=== PATIENT | female | born 1945 | race Caucasian/White ===

== ENCOUNTER 2017-09-13 14:03 | Emergency (ER) | payer MEDICARE, OTHER, SELFPAY | END 2017-09-13 17:28 | disposition home or self-care (01) | PROVIDERS: Emergency Provider Emergency Medicine; Family Provider Family Medicine; PCP Family Medicine; Visit Provider Emergency Medicine | DX: G89.18 Other acute postprocedural pain (principal) | CPT/HCPCS: 36415; 71010; 71045; 73502; 80053; 81003; 83605; 83690; 84145; 85025; 85610; 85730; 87040; 93971; 96361; 96374; 96375; 99058; 99285; J1885; J2270; J2405 ==

== ENCOUNTER 2018-02-07 16:23 | Emergency (ER) | payer MEDICARE, OTHER, SELFPAY ==
[2018-02-07 16:35] VITALS: BP 148/84; PULSE 88; RESP 28; TEMP 36.2; O2SAT 99
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
--- NOTE | 2018-02-07 16:51 | DI.RAD.S_ITS ---
PROCEDURE: XR FOREARM RT 2V INDICATIONS: Pain in right shoulder arm and forearm TECHNIQUE: 2 views of the forearm were acquired. COMPARISON: None. FINDINGS: Bones: No fractures or dislocations. No suspicious bony lesions. Moderate osteoarthritic changes while wrist joint are seen. Soft tissues: No suspicious soft tissue calcifications or masses. IMPRESSION: No gross acute forearm fracture or dislocation. Moderate wrist joint osteoarthritis. Dictated by: Jamie De Leon M.D. on 02/07/2018 at 17:32 Approved by: Jamie De Leon M.D. on 02/07/2018 at 17:32
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
[2018-02-07] MEDS: ACETAMINOPHEN 325 MG TABLET 650 MG PO (17:17)
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
[2018-02-07 18:31] VITALS: BP 145/81; PULSE 73; TEMP 36; O2SAT 97
[2018-02-07 18:40] VITALS: RESP 25
== END 2018-02-07 18:48 | disposition home or self-care (01) ==
PROVIDERS: Emergency Provider Nurse Practitioner Family; Family Provider Family Medicine; PCP Family Medicine
DX: S40.021A Contusion of right upper arm, initial encounter (principal); S80.11XA Contusion of right lower leg, initial encounter; V18.2XXA Unspecified pedal cyclist injured in noncollision transport accident in nontraffic accident, initial encounter
CPT/HCPCS: 70486; 73030; 73090; 73552; 73590; 99283; 99284

== ENCOUNTER → 2018-03-01 07:27 | Outpatient (CLI) | payer MEDICARE, OTHER, SELFPAY ==
[2018-03-01 09:15] LABS: Add Manual Diff / Slide Review NO; Basophils Percent Auto 0.7 % (0-2); Eosinophils Percent Auto 3.8 % (2-4); Hematocrit 38.9 % (36-46); Hemoglobin 13.1 g/dL (12.0-16.0); Lymphocytes Percent Auto 32.4 % (25-40); Mean Corpuscular HGB Conc 33.7 % (30-36); Mean Corpuscular Hemoglobin 27.9 PG (26-34); Mean Corpuscular Volume 82.9 fL (80-100); Monocytes Percent Auto 9.3 % (3-14); Neutrophils Absolute Auto 2800 /uL (3000-5900); Neutrophils Percent Auto 53.8 % (50-75); Platelet Count 263 X10^3/uL (150-400); Red Blood Cell Count 4.69 X10^6/uL (4.0-5.2); Red Cell Distribution Width 15.8 % (11.6-14.8); White Blood Cell Count 5.2 X10^3/uL (4.5-11.0)
[2018-03-01 09:34] LABS: Alanine Aminotransferase 34 IU/L (9-52); Albumin 4.1 g/dL (3.5-5.0); Albumin Globulin Ratio 1.3 (1.0-2.8); Alkaline Phosphatase 77 U/L (38-126); Aspartate Aminotransferase 28 IU/L (14-36); BUN Creatinine Ratio 22.5 (6-22); Bilirubin Total 0.5 mg/dL (0.2-1.3); Blood Urea Nitrogen 18 mg/dL (7-17); Calcium 9.5 mg/dL (8.4-10.2); Carbon Dioxide 30 mmol/L (22-32); Chloride 101 mmol/L (98-107); Cholesterol 262 mg/dL (140-199); Estimated Glomerular Filt Rate > 60.0 mL/min (>60); Globulin 3.1 g/dL (1.7-4.1); Glucose 87 mg/dL (80-110); HDL Cholesterol 70 mg/dL (40-60); HEMOLYSIS < 15 (0-50); LDL Cholesterol Calculated 179 mg/dL (<100); Sodium 139 mmol/L (137-145); Total Protein 7.2 g/dL (6.3-8.2); Triglycerides 66 mg/dL (35-150)
[2018-03-01 10:16] LABS: TSH w/ Reflex to FT4 2.35 uIU/mL (0.47-4.68)
== END ==
PROVIDERS: Family Provider Family Medicine; PCP Family Medicine; Visit Provider Family Medicine
DX: I10 Essential (primary) hypertension (principal)
CPT/HCPCS: 36415; 80053; 80061; 84443; 85025

== ENCOUNTER → 2018-03-16 10:52 | Outpatient (CLI) | payer MEDICARE, OTHER, SELFPAY ==
--- NOTE | 2018-03-16 | DI.MG.S_ITS ---
BILATERAL DIGITAL SCREENING MAMMOGRAM 3D/2D WITH CAD: 03/16/2018 CLINICAL: Routine screening. Comparison is made to exams dated: 03/08/2017 mammogram, 02/15/2016 mammogram, and 12/02/2014 mammogram - [facility]. The tissue of both breasts is heterogeneously dense. This may lower the sensitivity of mammography. Current study was also evaluated with a Computer Aided Detection (CAD) system. There are benign post operative findings in both breasts. No significant masses, calcifications, or other findings are seen in either breast. There has been no significant interval change. IMPRESSION: There is no mammographic evidence of malignancy. A 1 year screening mammogram is recommended. This exam was interpreted at Station ID: [id number]. NOTE: For mammograms, a report in lay terms will be sent to the patient. Approximately 15% of breast malignancies will not be visualized mammographically. In the management of a palpable breast mass, a negative mammogram must not discourage biopsy of a clinically suspicious lesion. Electronically Signed By: Falguni byrd/lenora:03/16/2018 15:30:58 letter sent: Normal Exam ACR BI-RADS Category 2: Benign Finding(s) 3342F
[2018-03-16 15:45] LABS: BUN Creatinine Ratio 26.7 (6-22); Blood Urea Nitrogen 24 mg/dL (7-17); Calcium 9.6 mg/dL (8.4-10.2); Carbon Dioxide 28 mmol/L (22-32); Chloride 103 mmol/L (98-107); Estimated Glomerular Filt Rate > 60.0 mL/min (>60); Glucose 90 mg/dL (80-110); HEMOLYSIS < 15 (0-50); Potassium 4.3 mmol/L (3.4-5.1); Sodium 140 mmol/L (137-145)
== END ==
PROVIDERS: Family Provider Family Medicine; PCP Family Medicine; Visit Provider Family Medicine
DX: Z12.31 Encounter for screening mammogram for malignant neoplasm of breast (principal); E27.9 Disorder of adrenal gland, unspecified
CPT/HCPCS: 36415; 77063; 77067; 80048

== ENCOUNTER → 2018-03-20 08:37 | Outpatient (CLI) | payer MEDICARE, OTHER, SELFPAY ==
--- NOTE | 2018-03-20 09:19 | DI.CT.S_ITS ---
PROCEDURE: CT ABDOMEN WO/W CON INDICATIONS: Adrenal Mass TECHNIQUE: Noncontrast 3 mm thick sections acquired from the diaphragms to the iliac crests. After the administration of intravenous contrast, 3 mm thick venous-phase and 10-minute delayed images acquired from the diaphragms to the iliac crests. For radiation dose reduction, the following was used: automated exposure control, adjustment of mA and/or kV according to patient size. COMPARISON: [facility], CT, ABDOMEN W&WO CONTRAST, 02/02/2017, 13:19. [facility], CT, CT ANGIO CHEST PE PROTOCOL, 09/26/2017, 5:29. FINDINGS: Image quality: Excellent. Lung bases: Lung bases are clear. Heart size is normal. Adrenal glands: Right-sided gland appears normal. Left-sided gland mass has not enlarged and demonstrates a precontrast density of -12.3. Arterial phase of enhancement density is 47 and delayed washout phase density is 8.4. This yields a absolute washout value of 65.1% and the relative washout value of 82.1%. Both of these values are consistent with a benign adrenal adenoma. Solid organs: Liver is normal in size and enhancement. Gallbladder appears normal, partially contracted. Biliary system is non dilated. Pancreas enhances normally. Spleen is normal in size and enhancement. Kidneys are normal in size and enhancement. No hydronephrosis or nephrolithiasis. Peritoneum and bowel: Unenhanced bowel loops are normal in caliber and wall thickness. No free fluid or air. Nodes and vessels: No retroperitoneal or mesenteric adenopathy by size criteria. Aorta and inferior vena cava are normal in size. Miscellaneous: No ventral hernias. Bones: No suspicious bony lesions. No vertebral body compression fractures. IMPRESSION: Stable appearance of a benign left adrenal adenoma with reference to prior CT scanning 09/26/17. This also was present 02/02/17. Please note that the CT scanning and MR scanning cannot differentiate between benign functioning and benign nonfunctioning adenomas. Dictated by: Arsalan Steven M.D. on 03/20/2018 at 12:11 Approved by: Arsalan Steven M.D. on 03/20/2018 at 12:21
== END ==
PROVIDERS: PCP Family Medicine; Visit Provider Family Medicine
DX: D35.02 Benign neoplasm of left adrenal gland (principal)
CPT/HCPCS: 74170; Q9967

== ENCOUNTER 2018-05-09 12:09 | Emergency (ER) | payer MEDICARE, OTHER, SELFPAY ==
[2018-05-09 12:30] VITALS: BP 150/76; PULSE 79; RESP 18; TEMP 36.3; O2SAT 100; BMI 21.6
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
[2018-05-09 12:38] VITALS: PULSE 80
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
--- NOTE | 2018-05-09 12:49 | DI.US.S_ITS ---
PROCEDURE: US EXTREMITY NONVASC LOWER RT INDICATIONS: LARGE HEMATOMA RIGHT UPPER THIGH TECHNIQUE: Real-time scanning was performed of the right thigh, with image documentation. COMPARISON: None. FINDINGS: Focused ultrasound examination of the right upper thigh at reported area of palpable lump shows a lobulated fluid collection measures 3.5 x 0.3 x 7.7 cm in size with no internal vascularity. Internal low-level echo is seen suggestive of debris. IMPRESSION: Finding is most consistent with a large soft tissue hematoma in the right upper thigh. Dictated by: Jamie De Leon M.D. on 05/09/2018 at 13:44 Approved by: Jamie De Leon M.D. on 05/09/2018 at 13:46
[2018-05-09 14:02] VITALS: BP 120/59; PULSE 74; RESP 14; O2SAT 98
== END 2018-05-09 14:15 | disposition home or self-care (01) ==
PROVIDERS: Emergency Provider Internal Medicine; PCP Family Medicine
DX: S70.11XA Contusion of right thigh, initial encounter (principal); V18.2XXA Unspecified pedal cyclist injured in noncollision transport accident in nontraffic accident, initial encounter
CPT/HCPCS: 76882; 99282; 99284

== ENCOUNTER → 2018-08-31 14:55 | Outpatient (CLI) | payer MEDICARE, OTHER, SELFPAY ==
[2018-08-31 15:58] LABS: Influenza A and B by PCR Rapid Negative (Negative)
== END ==
PROVIDERS: PCP Family Medicine; Visit Provider Family Medicine
DX: J11.1 Influenza due to unidentified influenza virus with other respiratory manifestations (principal)
CPT/HCPCS: 87400

== ENCOUNTER → 2018-09-10 09:22 | Outpatient (CLI) | payer MEDICARE, OTHER, SELFPAY ==
[2018-09-10 10:19] LABS: Appearance Urine UA SL CLOUDY; Bilirubin Urine UA NEGATIVE (NEGATIVE); Color Urine UA YELLOW; Glucose Urine UA NEGATIVE (Negative); Ketones Urine UA NEGATIVE (NEGATIVE); Leukocyte Esterase Urine UA 1+ (NEGATIVE); Nitrite Urine UA NEGATIVE (Negative); Occult Blood Urine UA 3+ (Negative); Protein Urine UA TRACE (Negative); Urobilinogen Urine UA 0.2 E.U./dL (0.2)
[2018-09-10 10:50] LABS: Bacteria Urine Moderate (10-30); Culture Indicated Urine Specimen Cultured; RBC Urine 10-30/HPF (0-5/HPF); Squamous Epithelial Cell Urine 0-1 /HPF (0-5/HPF); WBC Urine 10-30/HPF (0-5/HPF)
== END ==
PROVIDERS: PCP Family Medicine; Visit Provider Family Medicine
DX: R39.89 Other symptoms and signs involving the genitourinary system (principal)
CPT/HCPCS: 81001; 87077; 87086; 87186

== ENCOUNTER → 2018-09-26 10:13 | Outpatient (CLI) | payer MEDICARE, OTHER, SELFPAY | PROVIDERS: PCP Family Medicine; Visit Provider Family Medicine | DX: N39.0 Urinary tract infection, site not specified (principal) | CPT/HCPCS: 87077; 87086; 87186 ==

== ENCOUNTER 2018-10-06 08:08 | Emergency (ER) | payer MEDICARE, OTHER, SELFPAY ==
[2018-10-06 08:20] LABS: Bacteria Urine None Seen
[2018-10-06 08:24] VITALS: BP 127/68; PULSE 82; RESP 18; TEMP 36.4; O2SAT 99; BMI 22.1
[2018-10-06 08:25] LABS: Appearance Urine UA SL CLOUDY; Color Urine UA ORANGE
--- NOTE | 2018-10-06 08:31 | ED.FEMALEGU ---
HPI - Female Genitourinary General Chief complaint: Urogenital-Female Stated complaint: UTI Pressure in bladder Time Seen by Provider: 10/06/18 08:56 Source: patient and old records reviewed Mode of arrival: ambulatory Limitations: no limitations History of Present Illness HPI Narrative: A 73-year-old female comes with complaint of urinary urgency, frequency, dysuria although that is improved after she took a dose of azo. She feels some pelvic fullness. Patient states she will urinate very small amounts and then still feel like she has fullness. This is been going on for couple weeks. The patient has had 2 rounds of antibiotics the most recent she finished 3 days ago. They were nitrofurantoin and then Keflex. Patient has not had any fevers, no nausea or vomiting. No other GI symptoms. She denies any vaginal symptoms or irritation. She has not noticed any hematuria. Related Data Home Medications Medication Instructions Recorded Confirmed Lactobac 40-Bifido 3-S.thermop 100 cap PO QDAY #0 12/22/11 08/09/18 hyalur ac-chond sul-colg II-AA 1 ea PO BID #0 03/16/16 08/09/18 [Hyaluronic Acid (chond-collgn)] sennosides [senna] 8.6 mg PO PRN PRN #50 09/13/17 08/09/18 potassium chloride 100 mg PO DAILY 09/26/17 09/07/18 turmeric root extract 1 tab PO QDAY 09/26/17 08/09/18 Azaxanthine 1 tab PO DAILY 05/09/18 08/09/18 hyaluronic acid, hydrol (bulk) MISC 09/07/18 09/07/18 lactobacillus combination no.8 PO 09/07/18 09/07/18 magnesium PO 09/07/18 09/07/18 Previous Rx's Medication Instructions Recorded codeine 10 mg-guaifenesin 200 mg/5 See Rx Instructions PO Q6H PRN 08/31/18 mL oral liquid #473 ml nitrofurantoin 100 mg PO BID #10 cap 09/10/18 monohydrate/macrocrystals 100 mg capsule amlodipine 5 mg tablet 5 mg PO DAILY #30 tab 09/17/18 ciprofloxacin HCl 500 mg PO BID #20 tab 10/06/18 Allergies Allergy/AdvReac Type Severity Reaction Status Date / Time No Known Drug Allergies Allergy Verified 10/06/18 08:30 Review of Systems Review of Systems ROS Unobtainable: All systems reviewed & are unremarkable except as noted in HPI and below Constitutional Denies chills, Denies fever(s) and Denies lethargy Gastrointestinal Gastrointestinal: Denies abdominal pain, Denies change in bowel habits, Denies nausea, Denies vomiting and Reports other (abd fullness) Genitourinary Denies hematuria, Reports dysuria, Denies flank pain, Denies urinary incontinence, Reports urinary urgency, Denies vaginal discharge and Denies vaginal pruritus [facility] Medical History Mass of left adrenal gland (Chronic 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) Hypertension (Chronic 12/03/14) Cervical radiculopathy (Chronic 10/02/13) 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) Osteopenia (Chronic 2009) Cervical spine disease (Chronic) Chronic back pain (Chronic) Chronic headaches (Chronic) Lumbar spinal stenosis (Chronic) Shoulder pain (Chronic 2010) Abnormal Pap smear of cervix (Resolved 1982) Chicken pox (Resolved 1951) Colon polyps (Resolved 03/04/15) Measles (Resolved 1952) Mumps (Resolved 1953) Surgical History S/P total hip arthroplasty (Resolved 09/11/17) Anesthesia (Resolved) History of colonoscopy with polypectomy (Resolved 03/04/15) History of rectal surgery (Resolved) Status post appendectomy (Resolved) Status post arthroscopy (Resolved) Status post cervical spinal fusion (Resolved 10/2012) Status post colonoscopy (Resolved 2008) Status post hysterectomy (Resolved 1982) Status post lumbar laminectomy (Resolved 01/24/17) Status post lumbar spine surgery for decompression of spinal cord (Resolved 04/2012) Status post reduction mammoplasty (Resolved) Family History Brother Age: 78 Cancer, colon Father Dementia Grandmother CVA (cerebral vascular accident) Mother CVA (cerebral vascular accident) Hypertension Hyperlipidemia Grandmother Cancer Grandfather No problems noted. Grandfather Surgical complication Social History marital status: household members: spouse occupational status: previously employed Smoking Status: Never smoker alcohol intake: current substance use type: does not use Family History Brother Age: 78 Cancer, colon Father Dementia Grandmother CVA (cerebral vascular accident) Mother CVA (cerebral vascular accident) Hypertension Hyperlipidemia Grandmother Cancer Grandfather No problems noted. Grandfather Surgical complication Social History marital status: household members: spouse occupational status: previously employed Smoking Status: Never smoker alcohol intake: current substance use type: does not use Exam Narrative Exam Narrative: GENERAL: Alert and oriented x three, well-nourished, well-appearing female in mild distress. HEENT: Head normocephalic, atraumatic, EOMI, pupils reactive, face symmetric, moist mucous membranes NECK: Supple, full range of motion CARDIOVASCULAR: Regular rate and rhythm without murmurs, rubs or gallops. RESPIRATORY: Breath sounds equal bilaterally, no wheezes rales or rhonchi. ABDOMEN: Soft, nontender. Normoactive bowel sounds all 4 quadrants. No guarding or rebound, rigidity, no mass : No CVA tenderness EXTREMITIES: Normal range of motion, no clubbing or edema. Neurovascularly intact NEUROLOGICAL: Cranial nerves II through XII grossly intact. Moving all extremities SKIN: Warm, dry, no petechiae, no rashes or lesions. Initial Vital Signs Initial Vital Signs: Vital Signs Temperature 97.5 F L 10/06/18 08:24 Pulse Rate 82 10/06/18 08:24 Respiratory Rate 18 10/06/18 08:24 Blood Pressure 127/68 10/06/18 08:24 Pulse Oximetry 99 10/06/18 08:24 Course Orders Ordered: ED Orders 10/06/18 19:20 Urine Culture Stat Vital Signs - 8 hr 10/06/18 08:24 Temperature 97.5 F L Pulse Rate 82 Respiratory Rate 18 Blood Pressure 127/68 Pulse Oximetry 99 MDM - Female Genitourinary Lab Data Attestation: I reviewed the patient's lab results. Lab Results 10/06/18 Range/Units 08:15 Urine Color [place] Urine Appearance Sl cloudy Urine pH TNP Ur Specific [place] TNP Urine Protein TNP Urine Glucose (UA) TNP Urine Ketones TNP Urine Occult Blood TNP Urine Nitrate TNP Urine Bilirubin TNP Urine Urobilinogen TNP Ur Leukocyte Esterase TNP Urine RBC 5-10/hpf H (0-5/HPF) Urine WBC >100/hpf H (0-5/HPF) Ur Squamous Epith Cells 5-10 /hpf H (0-5/HPF) Urine Bacteria None seen (None) Ur Culture Indicated? Cult not indicated MDM Narrative Medical decision making narrative: Patient's urine today shows white cells, she was taking azo so unable to evaluate for nitrates or leuks. I did review patient's urine cultures from the last 2 which nitrofurantoin should have been sensitive, Keflex also appears that should have been sensitive although she does have wheezes and ampicillin and insensitivity 2 amp/sublactam. Discussed with patient after 2 rounds of antibiotics which states should improve her symptoms she could have interstitial cystitis and was offered referral to Urology. Was given [facility] but also a more local option to [facility]. Discharge Plan Departure Patient Disposition: Home Clinical Impression: UTI (urinary tract infection) Discharge Date/Time: 10/06/18 09:30 Interventions: ED Discharge Assessment Last Done: 10/06/18 09:30 Instructions: DI for Urinary Tract Infection (UTI) Activity Restrictions/Additional Instructions: Follow-up with her physician and/or Urology. Call for an appointment on Monday. Below is Urology through [facility]. You can call the clinic number at [phone] for follow-up with Urology at [facility]. Take antibiotics until they are completely gone. You may take azo every 8 hours for symptoms Return to the ER for fevers greater than 100.4, persistent vomiting, new back or flank pain, rapidly worsening abdominal pain, passing out or other new or concerning symptoms. Prescriptions: New ciprofloxacin HCl 500 mg tablet 500 mg PO BID Qty: 20 RF: 0 No Action Lactobac 40-Bifido 3-S.thermop 100 billion cell Capsule 100 cap PO QDAY Qty: 0 RF: 0 hyalur ac-chond sul-colg II-AA [Hyaluronic Acid (chond-collgn)] 1 EACH capsule 1 ea PO BID Qty: 0 RF: 0 sennosides [senna] 8.6 MG tablet 8.6 mg PO PRN PRN (Reason: Constipation) Qty: 50 RF: 0 nitrofurantoin monohyd/m-cryst 100 mg capsule 100 mg PO BID Qty: 10 RF: 0 amlodipine [Norvasc] 5 mg tablet 5 mg PO DAILY Qty: 30 RF: 3 codeine-guaifenesin 10-200 mg/5 mL liquid See Rx Instructions PO Q6H PRN (Reason: cough) Qty: 473 RF: 0 magnesium PO RF: 0 hyaluronic acid, hydrol (bulk) MISC RF: 0 lactobacillus combination no.8 PO RF: 0 potassium chloride tablet 100 mg PO DAILY RF: 0 turmeric root extract tablet 1 tab PO QDAY RF: 0 Azaxanthine 1 tab PO DAILY RF: 0 Referrals: Dayton Tao MD [Non-Staff] - Eveline Lux DO [Primary Care Provider] -
[2018-10-06 08:32] LABS: Culture Indicated Urine Cult Not Indicated; RBC Urine 5-10/HPF (0-5/HPF); Squamous Epithelial Cell Urine 5-10 /HPF (0-5/HPF); WBC Urine >100/HPF (0-5/HPF)
[2018-10-06 09:30] VITALS: BP 113/71; PULSE 73; RESP 16; O2SAT 99
== END 2018-10-06 09:30 | disposition home or self-care (01) ==
PROVIDERS: Emergency Provider Emergency Medicine; PCP Family Medicine
DX: N39.0 Urinary tract infection, site not specified (principal)
CPT/HCPCS: 81001; 99282; 99283

== ENCOUNTER → 2018-10-12 10:40 | Outpatient (CLI) | payer MEDICARE, OTHER, SELFPAY ==
--- NOTE | 2018-10-12 | DI.US.S_ITS ---
PROCEDURE: US RENAL COMPLETE INDICATIONS: CYSTITIS WITHOUT HEMATURIA TECHNIQUE: Real-time scanning was performed of the kidneys and bladder, with image documentation. COMPARISON: [facility], CT, CT ABDOMEN WO/W CON, 03/20/2018, 8:35. FINDINGS: Kidneys: Kidneys are normal in size. Right kidney measures 10 cm long; left kidney measures 10.7 cm long. Right renal cortical thickness is 1.1 cm; left renal cortical thickness is 1.3 cm. Renal cortical echotexture is normal. No hydronephrosis or nephrolithiasis. No suspicious solid mass lesions. 1.1 x 0.9 x 1 cm simple appearing cyst is seen in the upper pole of left kidney. Bladder: Pre-void bladder volume is 162 mL. Post-void residual is 20 mL. Pre-void images demonstrate no intraluminal masses or stones. On pre-void images, bilateral ureteral jets are noted with color Doppler interrogation. (Of note, ureteral jets may not be detectable in up to 25% of cases due to insufficient differences in specific gravity between ureteral and bladder urine). Miscellaneous: No free pelvic fluid. 3.3 x 2.6 x 2.4 cm hypoechoic structure is noted adjacent to upper pole of left kidney and is consistent with patient's known left adrenal adenoma. IMPRESSION: 1. Simple left renal cyst. No solid-appearing renal lesion. No hydronephrosis. 2. Unremarkable right kidney and urinary bladder. Small amount of post void residual. 3. 3.3 cm left adrenal adenoma unchanged from previous CT study. Dictated by: Jamie De Leon M.D. on 10/12/2018 at 12:23 Approved by: Jamie De Leon M.D. on 10/12/2018 at 12:26
== END ==
PROVIDERS: PCP Family Medicine; Visit Provider Urology
DX: N30.90 Cystitis, unspecified without hematuria (principal); N28.1 Cyst of kidney, acquired; D35.02 Benign neoplasm of left adrenal gland
CPT/HCPCS: 76770

== ENCOUNTER → 2018-12-20 13:56 | Outpatient (CLI) | payer MEDICARE, OTHER, SELFPAY ==
--- NOTE | 2018-12-20 13:57 | DI.RAD.S_ITS ---
PROCEDURE: XR LUMBAR SPINE 2-3V INDICATIONS: Back pain s/p fall TECHNIQUE: 2 views of the lumbar spine were acquired. COMPARISON: [facility] [place], CR, XR LUMBAR SPINE 2 OR 3 VIEWS, 08/24/2017, 13:03. [facility] [place], CR, XR LUMBAR SPINE 2 OR 3 VIEWS, 06/12/2017, 15:58. [facility] [place], [place], XR LUMBAR SPINE 2 OR 3 VIEWS, 10/29/2018, 9:20. FINDINGS: Bones: 5 [id number] vertebrae are present. There is mild dextroscoliosis. There is discectomy, posterior decompression and surgical fusion at L2-L5. Severe degenerative disease is present at L. one half L2. There is a severe facet arthropathy at L5-S1. No vertebral body compression fractures. No suspicious bony lesions. Soft tissues: Overlying bowel gas pattern is normal. No suspicious soft tissue calcifications. IMPRESSION: 1. No fractures. 2. Degenerative and post surgical changes in lumbar spine. Dictated by: Dylan Mcadams M.D. on 12/20/2018 at 15:19 Approved by: Dylan Mcadams M.D. on 12/20/2018 at 15:35
== END ==
PROVIDERS: PCP Family Medicine; Visit Provider Registered Nurse
DX: M47.816 Spondylosis without myelopathy or radiculopathy, lumbar region (principal); M47.817 Spondylosis without myelopathy or radiculopathy, lumbosacral region; M54.5 Low back pain; W19.XXXA Unspecified fall, initial encounter; Z98.1 Arthrodesis status
CPT/HCPCS: 72100

== ENCOUNTER → 2019-02-07 07:06 | Outpatient (CLI) | payer MEDICARE, OTHER, SELFPAY ==
[2019-02-07 08:49] LABS: Alanine Aminotransferase 19 IU/L (9-52); Albumin 4.1 g/dL (3.5-5.0); Albumin Globulin Ratio 1.5 (1.0-2.8); Alkaline Phosphatase 77 U/L (38-126); Aspartate Aminotransferase 24 IU/L (14-36); BUN Creatinine Ratio 23.8 (6-22); Bilirubin Total 0.5 mg/dL (0.2-1.3); Blood Urea Nitrogen 19 mg/dL (7-17); Carbon Dioxide 28 mmol/L (22-32); Chloride 100 mmol/L (98-107); Cholesterol 269 mg/dL (140-199); Estimated Glomerular Filt Rate > 60.0 mL/min (>60); Globulin 2.7 g/dL (1.7-4.1); Glucose 84 mg/dL (80-110); HDL Cholesterol 92 mg/dL (40-60); HEMOLYSIS < 15 (0-50); LDL Cholesterol Calculated 165 mg/dL (<100); Potassium 4.5 mmol/L (3.4-5.1); Sodium 137 mmol/L (137-145); Total Protein 6.8 g/dL (6.3-8.2); Triglycerides 58 mg/dL (35-150)
== END ==
PROVIDERS: PCP Family Medicine; Visit Provider Family Medicine
DX: E78.5 Hyperlipidemia, unspecified (principal); I10 Essential (primary) hypertension
CPT/HCPCS: 36415; 80053; 80061

== ENCOUNTER → 2019-02-14 11:06 | Outpatient (CLI) | payer MEDICARE, OTHER, SELFPAY ==
[2019-02-14 11:43] LABS: High Sensitivity CRP - Cardiac 0.2 mg/L (1.0-3.0)
[2019-02-14 12:15] LABS: Ferritin 38.1 ng/mL (11.1-264)
[2019-02-14 12:30] LABS: Fibrinogen 302 mg/dL (211-428)
== END ==
PROVIDERS: PCP Family Medicine; Visit Provider Family Medicine
DX: E78.5 Hyperlipidemia, unspecified (principal); I10 Essential (primary) hypertension; D64.9 Anemia, unspecified
CPT/HCPCS: 36415; 82728; 83090; 85384; 86140

== ENCOUNTER → 2019-12-04 12:36 | Outpatient (CLI) | payer MEDICARE, OTHER, SELFPAY ==
--- NOTE | 2019-12-04 | DI.MRI.S_ITS ---
PROCEDURE: MR LUMBAR SPINE WO/W CON INDICATIONS: Pain, unspecified TECHNIQUE: Noncontrast sagittal T1 spin echo and T2 fast spin echo, sagittal STIR, axial T1 and T2 fast spin echo through the lumbar spine. In cases with scoliosis, additional coronal T2 fast spin echo may be performed. After the administration of contrast, sagittal and axial T1 spin echo with fat saturation through the lumbar spine. COMPARISON: [facility], CR, XR LUMBAR SPINE 2-3V, 12/20/2018, 13:58. FINDINGS: Image quality: Excellent. Alignment and curvature: There is mild L4-L5 anterolisthesis. There is trace L1-L2 retrolisthesis. Bones: Postsurgical changes compatible L2-L5 posterior fusion a somewhat as well as L2 and L3, L3-L4 and L4-L5 interbody fusion. Recommend plate changes noted adjacent to the T12-L1, L1-L2, L2-L3, L3-L4, L4-L5 and L5-S1 discs. No acute vertebral body compression fractures. No suspicious marrow enhancement. Spinal cord: Conus medullaris terminates at the L1 level. Visualized spinal cord demonstrates normal signal, without suspicious enhancement. Paraspinous soft tissues: No paravertebral masses or abnormal enhancement. T12-L1: Loss of disc signal and height. Moderate, diffuse disc bulge. Mild bilateral facet hypertrophy. Mild central canal. Moderate right mild left neural foraminal narrowing. No neural compression. L1-L2: Loss of the signal high. Moderate, diffuse disc bulge. Mild to moderate bilateral facet hypertrophy. Mild to moderate central canal. Mild right and moderate left neural foraminal narrowing. No neural compression. L2-L3: Status post fusion. Mild to moderate bilateral facet hypertrophy. Mild narrowing the central canal. Mild bilateral neural foraminal narrowing. No neural compression. L3-L4: Status post fusion and right laminotomy. Moderate bilateral facet hypertrophy. No central stenosis. Mild left neural foraminal narrowing. No neural compression. L4-L5: Status post fusion. Moderate right and severe left facet hypertrophy. No central stenosis. No neural foraminal narrowing. No neural compression. L5-S1: Loss of the signal. Mild, diffuse disc bulge. Moderate bilateral facet hypertrophy. No central stenosis. Moderate left neural foraminal narrowing. No neural compression. IMPRESSION: 1. Postsurgical changes. 2. Multilevel degenerative disease 3. Multilevel facet arthropathy 4. No significant central canal narrowing. 5. No significant foraminal narrowing. 6. No neural compression comparison. 7. No suspicious postcontrast enhancement. Dictated by: Elizabet Tuttle MD, PhD on 12/04/2019 at 16:50 Approved by: Elizabet Tuttle MD, PhD on 12/04/2019 at 16:57
== END ==
PROVIDERS: PCP Family Medicine; Referring Provider Orthopaedic Surgery; Visit Provider Orthopaedic Surgery
DX: M54.5 Low back pain (principal); M51.36 Other intervertebral disc degeneration, lumbar region; M51.37 Other intervertebral disc degeneration, lumbosacral region; M47.816 Spondylosis without myelopathy or radiculopathy, lumbar region; M47.817 Spondylosis without myelopathy or radiculopathy, lumbosacral region; M48.061 Spinal stenosis, lumbar region without neurogenic claudication; M48.07 Spinal stenosis, lumbosacral region
CPT/HCPCS: 72158

== ENCOUNTER → 2020-02-11 11:06 | Outpatient (CLI) | payer MEDICARE, OTHER, SELFPAY ==
--- NOTE | 2020-02-11 11:21 | DI.MG.S_ITS ---
Patient Name: JONNY MC date: 1945 Sex: F Attending Physician: Jose J Indications: Date: 02/11/2020 11:12 At the request of: SMILEY TOURE Procedure: MM screening mammo BI BILATERAL DIGITAL SCREENING MAMMOGRAM 3D/2D WITH CAD: 02/11/2020 CLINICAL: Routine screening. Comparison is made to exams dated: 03/16/2018 mammogram, 03/08/2017 mammogram, and 02/15/2016 mammogram - [facility]. The tissue of both breasts is heterogeneously dense. This may lower the sensitivity of mammography. Current study was also evaluated with a Computer Aided Detection (CAD) system. There are benign post operative findings in both breasts. No significant masses, calcifications, or other findings are seen in either breast. There has been no significant interval change. IMPRESSION: BENIGN There is no mammographic evidence of malignancy. A 1 year screening mammogram is recommended. This exam was interpreted at Station ID: [id number]. NOTE: For mammograms, a report in lay terms will be sent to the patient. Approximately 15% of breast malignancies will not be visualized mammographically. In the management of a palpable breast mass, a negative mammogram must not discourage biopsy of a clinically suspicious lesion. Electronically Signed By: Julio young/lenora:02/11/2020 17:56:26 letter sent: Normal Exam ACR BI-RADS Category 2: Benign Finding(s) 3342F
== END ==
PROVIDERS: PCP Family Medicine; Referring Provider Family Medicine; Visit Provider Family Medicine
DX: Z12.31 Encounter for screening mammogram for malignant neoplasm of breast (principal)
CPT/HCPCS: 77063; 77067

== ENCOUNTER → 2020-04-03 14:07 | Outpatient (CLI) | payer MEDICARE, OTHER, SELFPAY ==
--- NOTE | 2020-04-03 | DI.MRI.S_ITS ---
PROCEDURE: MR HIP LT WO CON INDICATIONS: Pain in left hip TECHNIQUE: Noncontrast coronal T1 spin echo and STIR through the bony pelvis. Coronal and axial T2 fast spin echo with fat saturation, sagittal T1 spin echo, and oblique axial T2 fast spin echo with fat saturation through the hip. COMPARISON: None. FINDINGS: Image quality: Excellent. Bones and joints: No fracture identified. Severe degenerative joint disease is present with subchondral edema and cystic change/spurring. Sacroiliac joints are unremarkable in signal intensity. There is lower lumbar spondylosis and facet arthropathy. Small hip joint effusion. No evidence of osteonecrosis. Tendons and ligaments: Gluteus medius and minimus insertional tendinopathy. Proximal iliotibial band intact. Iliopsoas tendon intact. Origin of the hamstring tendon mildly thickened with low-grade intrasubstance signal changes.. The straight and reflected heads of the rectus femoris muscle origin appear intact Ligamentum teres appears intact where visualized. Labrum: Circumferential labral degeneration which is most likely chronic. The alpha angle of the femur is within normal limits at less than 55 degrees. Soft tissues: Visualized muscles demonstrate normal bulk and internal signal. Quadratus femoris muscle normal. Proximal sciatic neurovascular bundle appears normal adjacent to the hamstring tendons. No free pelvic fluid. Bladder normal. Genitourinary structures and bowel loops appear normal where visualized. IMPRESSION: Gluteus medius and minimus insertional tendinopathy/partial tear. Severe degenerative joint disease Complex macerated, likely chronic/degenerative tear of the labrum. Age-indeterminate hamstring origin tendinopathy. Dictated by: Tariq Fox M.D. on 04/03/2020 at 16:55 Approved by: Tariq Fox M.D. on 04/03/2020 at 17:06
== END ==
PROVIDERS: PCP Family Medicine; Referring Provider Orthopaedic Surgery; Visit Provider Orthopaedic Surgery
DX: M25.552 Pain in left hip (principal); S76.012A Strain of muscle, fascia and tendon of left hip, initial encounter; S73.192A Other sprain of left hip, initial encounter; M16.12 Unilateral primary osteoarthritis, left hip
CPT/HCPCS: 73721

== ENCOUNTER → 2020-06-09 07:09 | Outpatient (CLI) | payer MEDICARE, OTHER, SELFPAY ==
[2020-06-09 08:39] LABS: Alanine Aminotransferase 17 IU/L (<35); Albumin Globulin Ratio 1.5 (1.0-2.8); Alkaline Phosphatase 71 U/L (38-126); Aspartate Aminotransferase 26 IU/L (14-36); BUN Creatinine Ratio 27.5 (6-22); Bilirubin Total 0.3 mg/dL (0.2-1.3); Blood Urea Nitrogen 22 mg/dL (7-17); Calcium 9.7 mg/dL (8.4-10.2); Carbon Dioxide 30 mmol/L (22-32); Chloride 101 mmol/L (98-107); Estimated Glomerular Filt Rate > 60.0 mL/min (>60); Globulin 2.6 g/dL (1.7-4.1); Glucose 92 mg/dL (80-110); HEMOLYSIS < 15 (0-50); Potassium 4.5 mmol/L (3.4-5.1); Sodium 134 mmol/L (137-145); Total Protein 6.6 g/dL (6.3-8.2)
== END ==
PROVIDERS: PCP Family Medicine; Referring Provider Family Medicine; Visit Provider Family Medicine
DX: E78.5 Hyperlipidemia, unspecified (principal); I10 Essential (primary) hypertension
CPT/HCPCS: 36415; 80053

== ENCOUNTER → 2020-06-16 12:09 | Outpatient (CLI) | payer MEDICARE, OTHER, SELFPAY ==
--- NOTE | 2020-06-16 12:33 | DI.CT.S_ITS ---
PROCEDURE: CT ABDOMEN WO/W CON INDICATIONS: adrenal mass surveillance TECHNIQUE: Noncontrast 3 mm thick sections acquired from the diaphragms to the iliac crests. After the administration of intravenous contrast, 3 mm thick venous-phase and 15-minute delayed images acquired from the diaphragms to the iliac crests. For radiation dose reduction, the following was used: automated exposure control, adjustment of mA and/or kV according to patient size. COMPARISON: [facility], CT, CT ABDOMEN WO/W CON, 03/20/2018, 8:35. [facility], CT, ABDOMEN W&WO CONTRAST, 02/02/2017, 13:19. FINDINGS: Image quality: Excellent. Lung bases: Lung bases are clear. Heart size is normal. Adrenal glands: Normal right adrenal gland. The low-density -12 Hounsfield unit 3.7 x 3.4 cm left adrenal mass has not significantly changed in morphology size or radiodensity from January 2017. Solid organs: Liver is normal in size and enhancement. Gallbladder appears normal . Biliary system is non dilated. Pancreas enhances normally. Spleen is normal in size and enhancement. Kidneys are normal in size and enhancement. No hydronephrosis or nephrolithiasis. Peritoneum and bowel: Unenhanced bowel loops are normal in caliber and wall thickness. No free fluid or air. Nodes and vessels: No retroperitoneal or mesenteric adenopathy by size criteria. Aorta and inferior vena cava are normal in size. Miscellaneous: No ventral hernias. Bones: No suspicious bony lesions. No vertebral body compression fractures. IMPRESSION: Benign-appearing stable appearing 3.4 x 3.7 cm low-density left adrenal nodule stable over time including from January 2017. Dictated by: Arsalan Steven M.D. on 06/16/2020 at 14:22 Approved by: Arsalan Steven M.D. on 06/16/2020 at 14:25
== END ==
PROVIDERS: PCP Family Medicine; Referring Provider Family Medicine; Visit Provider Family Medicine
DX: E27.9 Disorder of adrenal gland, unspecified (principal)
CPT/HCPCS: 74170; Q9967

== ENCOUNTER → 2020-08-07 07:34 | Outpatient (CLI) | payer MEDICARE, OTHER, SELFPAY ==
[2020-08-07 08:28] LABS: High Sensitivity CRP - Cardiac < 0.3 mg/L (1.0-3.0)
== END ==
PROVIDERS: PCP Family Medicine; Referring Provider Family Medicine; Visit Provider Family Medicine
DX: E78.5 Hyperlipidemia, unspecified (principal)
CPT/HCPCS: 36415; 86140

== ENCOUNTER → 2020-08-18 07:44 | Outpatient (CLI) | payer MEDICARE, OTHER, SELFPAY ==
[2020-08-20 09:07] LABS: Cholesterol, Total 290 mg/dL (100-199); HDL-Cholesterol 107 mg/dL (>39); HDL-Particle (Total) 46.7 umol/L (>=30.5); LDL Particle 1460 nmol/L (<1000); LDL Size 22.1 nm (>20.5); LDL-Cholsterol 172 mg/dL (0-99); LP-IR Score <25 (<=45); Small LDL- Particle <90 nmol/L (<=527); Triglycerides 74 mg/dL (0-149)
== END ==
PROVIDERS: PCP Family Medicine; Referring Provider Family Medicine; Visit Provider Family Medicine
DX: E78.5 Hyperlipidemia, unspecified (principal)
CPT/HCPCS: 36415; 80061; 83704

== ENCOUNTER → 2021-02-17 09:44 | Outpatient (CLI) | payer MEDICARE, OTHER, SELFPAY ==
--- NOTE | 2021-02-17 | DI.MRI.S_ITS ---
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 Coronal and axial T2 fast spin echo with fat saturation, sagittal T1 spin echo, and oblique axial T2 fast spin echo with fat saturation through the hip. COMPARISON: [facility], MR, MR HIP LT WO CON, 04/03/2020, 14:52. FINDINGS: Image quality: Excellent. Bones and joints: Moderate left hip joint osteoarthritic changes are seen with joint space narrowing, mild subchondral edema and cyst formation and lateral marginal osteophyte formation. No intraosseous lesions or fractures. No avascular necrosis of the femoral heads. The visualized lower lumbar spine appears normally aligned. There is prior right total hip arthroplasty with susceptibility artifacts. Tendons and ligaments: The gluteus medius and minimus tendinosis at their insertions on greater trochanter is seen, without associated muscle atrophy. The nearby proximal iliotibial band also appears intact. The iliopsoas tendon appears intact, without adjacent bursal fluid collections or evidence for impingement syndrome. The origin of the hamstring tendon is intact at the ischial tuberosity, as well as the associated sacrotuberous ligament. The straight and reflected heads of the rectus femoris muscle origin appear intact, as well as the conjoint tendon. The ligamentum teres appears intact where visualized. Labrum and cartilage: Diffuse signal abnormality throughout and anterior labrum is seen suggestive of extensive superior anterior labral tear. Thinning of articulating cartilages in femoral head is seen. The alpha angle of the femur is within normal limits at less than 55 degrees. Soft tissues: Visualized muscles demonstrate normal bulk and internal signal. Quadratus femoris muscle demonstrates no internal edema to suggest ischiofemoral impingement. The proximal sciatic neurovascular bundle appears normal adjacent to the hamstring tendons. No free pelvic fluid. Bladder wall thickness is normal. Genitourinary structures and bowel loops appear normal where visualized. IMPRESSION: 1. Moderate left hip joint osteoarthritis. No fracture or dislocation. No evidence of avascular necrosis of femoral head. 2. Suggestion of extensive superior anterior left hip labral tear. 3. Left distal gluteus medius and minimus tendinosis at their insertions on greater trochanter. No other muscle or tendon signal abnormality. Dictated by: Jamie De Leon M.D. on 02/17/2021 at 12:56 Approved by: Jamie De Leon M.D. on 02/17/2021 at 13:44
== END ==
PROVIDERS: PCP Family Medicine; Referring Provider Orthopaedic Surgery; Visit Provider Orthopaedic Surgery
DX: M87.052 Idiopathic aseptic necrosis of left femur (principal); M16.12 Unilateral primary osteoarthritis, left hip
CPT/HCPCS: 73721

== ENCOUNTER → 2021-02-24 07:02 | Outpatient (CLI) | payer MEDICARE, OTHER, SELFPAY ==
[2021-02-24 08:31] LABS: Alanine Aminotransferase 19 IU/L (<35); Albumin Globulin Ratio 1.5 (1.0-2.8); Alkaline Phosphatase 74 U/L (38-126); Aspartate Aminotransferase 28 IU/L (14-36); BUN Creatinine Ratio 19.2 (6-22); Bilirubin Total 0.4 mg/dL (0.2-1.3); Blood Urea Nitrogen 14 mg/dL (7-17); Calcium 9.9 mg/dL (8.4-10.2); Carbon Dioxide 32 mmol/L (22-32); Chloride 101 mmol/L (98-107); Cholesterol 266 mg/dL (140-199); Estimated Glomerular Filt Rate > 60.0 mL/min (>60); Globulin 2.7 g/dL (1.7-4.1); Glucose 90 mg/dL (80-110); HDL Cholesterol 91 mg/dL (40-60); HEMOLYSIS < 15 (0-50); LDL Cholesterol Calculated 161 mg/dL (<100); Potassium 4.6 mmol/L (3.4-5.1); Sodium 137 mmol/L (137-145); Total Protein 6.7 g/dL (6.3-8.2); Triglycerides 70 mg/dL (35-150)
== END ==
PROVIDERS: PCP Family Medicine; Referring Provider Family Medicine; Visit Provider Family Medicine
DX: E78.2 Mixed hyperlipidemia (principal); I10 Essential (primary) hypertension
CPT/HCPCS: 36415; 80053; 80061

== ENCOUNTER → 2021-03-12 13:26 | Outpatient (CLI) | payer MEDICARE, OTHER, SELFPAY ==
--- NOTE | 2021-03-12 13:27 | DI.MG.S_ITS ---
BILATERAL DIGITAL SCREENING MAMMOGRAM 3D/2D WITH CAD: 03/12/2021 CLINICAL: Routine screening. Comparison is made to exams dated: 02/11/2020 mammogram, 03/16/2018 mammogram, and 03/08/2017 mammogram - [facility]. The tissue of both breasts is heterogeneously dense. This may lower the sensitivity of mammography. Current study was also evaluated with a Computer Aided Detection (CAD) system. No significant masses, calcifications, or other findings are seen in either breast. There has been no significant interval change. IMPRESSION: NEGATIVE There is no mammographic evidence of malignancy. A 1 year screening mammogram is recommended. This exam was interpreted at Station ID: [id number]. NOTE: For mammograms, a report in lay terms will be sent to the patient. Approximately 15% of breast malignancies will not be visualized mammographically. In the management of a palpable breast mass, a negative mammogram must not discourage biopsy of a clinically suspicious lesion. Electronically Signed By: Sonya yoo/lenora:03/12/2021 14:37:11 letter sent: Normal Exam ACR BI-RADS Category 1: Negative [id number]
== END ==
PROVIDERS: PCP Family Medicine; Referring Provider Family Medicine; Visit Provider Family Medicine
DX: Z12.31 Encounter for screening mammogram for malignant neoplasm of breast (principal)
CPT/HCPCS: 77063; 77067

== ENCOUNTER → 2021-05-17 07:06 | Outpatient (CLI) | payer MEDICARE, OTHER, SELFPAY ==
[2021-05-17 08:17] LABS: Alanine Aminotransferase 22 IU/L (<35); Albumin Globulin Ratio 1.5 (1.0-2.8); Alkaline Phosphatase 73 U/L (38-126); Aspartate Aminotransferase 29 IU/L (14-36); BUN Creatinine Ratio 21.3 (6-22); Bilirubin Total 0.4 mg/dL (0.2-1.3); Blood Urea Nitrogen 16 mg/dL (7-17); Calcium 9.8 mg/dL (8.4-10.2); Carbon Dioxide 29 mmol/L (22-32); Chloride 106 mmol/L (98-107); Cholesterol 231 mg/dL (140-199); Creatine Kinase 55 U/L (30-135); Estimated Glomerular Filt Rate > 60.0 mL/min (>60); Globulin 2.7 g/dL (1.7-4.1); Glucose 98 mg/dL (80-110); HDL Cholesterol 96 mg/dL (40-60); HEMOLYSIS < 15 (0-50); LDL Cholesterol Calculated 121 mg/dL (<100); Potassium 4.4 mmol/L (3.4-5.1); Sodium 136 mmol/L (137-145); Total Protein 6.7 g/dL (6.3-8.2); Triglycerides 70 mg/dL (35-150)
== END ==
PROVIDERS: PCP Family Medicine; Referring Provider Family Medicine; Visit Provider Family Medicine
DX: E78.2 Mixed hyperlipidemia (principal); I10 Essential (primary) hypertension; T46.6X5A Adverse effect of antihyperlipidemic and antiarteriosclerotic drugs, initial encounter; M79.10 Myalgia, unspecified site
CPT/HCPCS: 36415; 80053; 80061; 82550

== ENCOUNTER → 2021-06-15 08:02 | Outpatient (CLI) | payer MEDICARE, OTHER, SELFPAY ==
[2021-06-15 09:45] LABS: Creatine Kinase 111 U/L (30-135)
--- NOTE | 2021-06-15 09:54 | DI.CT.S_ITS ---
PROCEDURE: CT ABDOMEN WO/W CON INDICATIONS: benign neoplasm of unspecified adrenal gland TECHNIQUE: Noncontrast 3 mm thick sections acquired from the diaphragms to the iliac crests. After the administration of intravenous contrast, 3 mm thick venous-phase and 15-minute delayed images acquired from the diaphragms to the iliac crests. For radiation dose reduction, the following was used: automated exposure control, adjustment of mA and/or kV according to patient size. COMPARISON: [facility], CT, CT ABDOMEN WO/W CON, 06/16/2020, 12:24. FINDINGS: Image quality: Excellent. Lung bases: Mild bibasilar pulmonary parenchymal scarring. Normal size heart. No hiatal hernia. Adrenal glands: Low-density, thin-walled 3.6 x 3.3 cm left adrenal mass demonstrates stable morphology. Trace enhancement of a fine internal septation. The right adrenal gland is normal. Solid organs: Liver is normal size without masses. Gallbladder and biliary system are nondilated. Normal pancreas, spleen. Small simple cysts in the cortex of each kidney. No hydronephrosis or calcification. Peritoneum and bowel: Unenhanced bowel loops are normal in caliber and wall thickness. No free fluid or air. Nodes and vessels: No retroperitoneal or mesenteric adenopathy by size criteria. Aorta and inferior vena cava are normal in size. Mild abdominal aortic atherosclerotic calcification. Miscellaneous: No ventral hernias. Bones: Lumbar fusion hardware in expected position. No suspicious bony lesions. No vertebral body compression fractures. IMPRESSION: 1. Benign 3.6 cm left adrenal mass. Dictated by: Sonya Pham M.D. on 06/15/2021 at 10:53 Approved by: Sonya Pham M.D. on 06/15/2021 at 11:40
[2021-06-15 10:09] LABS: Cortisol AM (Before 10AM) 4.96 ug/dL (4.46-22.7)
[2021-06-21 13:58] LABS: Aldosterone/Renin Activity Rat 28.2 (0.0-30.0); Plama Renin, LC/MS/MS 0.266 ng/mL/hr (0.167-5.380)
[2021-06-21 16:33] LABS: Dehydroepiandrosterone Sulfate 21.5 ug/dL (13.9-142.8)
== END ==
PROVIDERS: PCP Family Medicine; Referring Provider Family Medicine; Visit Provider Family Medicine
DX: D35.00 Benign neoplasm of unspecified adrenal gland (principal); M79.10 Myalgia, unspecified site; T46.6X5A Adverse effect of antihyperlipidemic and antiarteriosclerotic drugs, initial encounter
CPT/HCPCS: 36415; 74170; 82088; 82533; 82550; 82627; 84244

== ENCOUNTER → 2022-01-17 10:26 | Outpatient (CLI) | payer MEDICARE, OTHER, SELFPAY | PROVIDERS: PCP Pediatrics; Referring Provider Pediatrics; Visit Provider Pediatrics | DX: M85.852 Other specified disorders of bone density and structure, left thigh (principal); Z13.820 Encounter for screening for osteoporosis; Z78.0 Asymptomatic menopausal state; Z90.710 Acquired absence of both cervix and uterus | CPT/HCPCS: 77080 ==

== ENCOUNTER → 2022-03-17 14:08 | Outpatient (CLI) | payer MEDICARE, OTHER, SELFPAY ==
--- NOTE | 2022-03-17 | DI.MG.S_ITS ---
BILATERAL DIGITAL SCREENING MAMMOGRAM 3D/2D WITH CAD: 03/17/2022 CLINICAL: Routine screening. Comparison is made to exams dated: 03/12/2021 mammogram, 02/11/2020 mammogram, and 03/16/2018 mammogram - [facility]. Both breasts are heterogeneously dense, which may obscure small masses (category c / 51-75% glandular tissue). Current study was also evaluated with a Computer Aided Detection (CAD) system. There is a possible developing focal asymmetry in the right breast central to the nipple middle depth. This is more prominent and increased in size. No other significant masses, calcifications, or other findings are seen in either breast. IMPRESSION: INCOMPLETE: NEEDS ADDITIONAL IMAGING EVALUATION The possible developing focal asymmetry in the right breast is indeterminate. Additional views with possible ultrasound are recommended. Based on the Tyrer Cuzick model (a risk assessment model) the patient's lifetime risk is 2.3% and her 10 year risk is 2.3%. According to the ACR, ACS, and NCCN guidelines, an annual breast MRI exam along with mammogram is recommended if the patient's lifetime risk is 20% or greater. This exam was interpreted at Station ID: [id number]. NOTE: For mammograms, a report in lay terms will be sent to the patient. Approximately 15% of breast malignancies will not be visualized mammographically. In the management of a palpable breast mass, a negative mammogram must not discourage biopsy of a clinically suspicious lesion. Electronically Signed By: Medardo Gao M.D., jr/lenora:03/17/2022 14:27:36 letter sent: Additional Imaging Needed ACR BI-RADS Category 0: Incomplete 3340F
== END ==
PROVIDERS: PCP Family Medicine; Referring Provider Family Medicine; Visit Provider Family Medicine
DX: Z12.31 Encounter for screening mammogram for malignant neoplasm of breast (principal)
CPT/HCPCS: 77063; 77067

== ENCOUNTER → 2022-03-23 06:57 | Outpatient (CLI) | payer MEDICARE, OTHER, SELFPAY ==
[2022-03-23 07:59] LABS: Add Manual Diff / Slide Review NO; Basophils Absolute Auto 0 /uL (0-100); Basophils Percent Auto 0.7 % (0-2); Eosinophils Absolute Auto 100 /uL (0-450); Eosinophils Percent Auto 2.8 % (2-4); Hematocrit 38.3 % (36-46); Lymphocytes Absolute Auto 1900 /uL (1100-4500); Lymphocytes Percent Auto 37.2 % (25-40); Mean Corpuscular HGB Conc 33.8 % (30-36); Mean Corpuscular Hemoglobin 28.9 PG (26-34); Mean Corpuscular Volume 85.4 fL (80-100); Monocytes Absolute Auto 400 /uL (0-900); Monocytes Percent Auto 8.4 % (3-14); Neutrophils Absolute Auto 2600 /uL (1500-7000); Neutrophils Percent Auto 50.9 % (50-75); Platelet Count 222 X10^3/uL (150-400); Red Blood Cell Count 4.48 X10^6/uL (4.0-5.2); Red Cell Distribution Width 14.2 % (11.6-14.8); White Blood Cell Count 5.1 X10^3/uL (4.5-11.0)
[2022-03-23 08:02] LABS: Hemoglobin A1C% w Est Avg Glu 5.7 % (4.0-6.0)
[2022-03-23 08:04] LABS: COVID19 -Nasal RAPID Negative (Negative)
[2022-03-23 08:35] LABS: BUN Creatinine Ratio 19.8 (6-22); Blood Urea Nitrogen 16 mg/dL (7-17); Calcium 9.5 mg/dL (8.4-10.2); Carbon Dioxide 28 mmol/L (22-32); Chloride 102 mmol/L (98-107); Estimated Glomerular Filt Rate > 60 mL/min (>60); Glucose 91 mg/dL (80-110); HEMOLYSIS < 15 (0-50); Potassium 4.1 mmol/L (3.4-5.1); Sodium 136 mmol/L (137-145)
[2022-03-23 10:30] LABS: Appearance Urine UA SL CLOUDY; Bilirubin Urine UA NEGATIVE (NEGATIVE); Color Urine UA YELLOW; Glucose Urine UA NEGATIVE (Negative); Ketones Urine UA NEGATIVE (NEGATIVE); Leukocyte Esterase Urine UA 3+ (NEGATIVE); Nitrite Urine UA NEGATIVE (Negative); Occult Blood Urine UA TRACE-LYSED (Negative); Protein Urine UA NEGATIVE (Negative); Specific Gravity Urine UA <=1.005 (1.000-1.035); Urobilinogen Urine UA 0.2 E.U./dL (0.2)
[2022-03-23 10:44] LABS: Bacteria Urine Many (>30); Culture Indicated Urine Specimen Cultured; RBC Urine 1-5/HPF (0-5/HPF); Squamous Epithelial Cell Urine 5-10 /HPF (0-5/HPF); WBC Urine 10-30/HPF (0-5/HPF)
== END ==
PROVIDERS: PCP Family Medicine; Referring Provider Orthopaedic Surgery; Visit Provider Orthopaedic Surgery
DX: Z01.818 Encounter for other preprocedural examination (principal); R73.9 Hyperglycemia, unspecified; Z01.812 Encounter for preprocedural laboratory examination; N39.0 Urinary tract infection, site not specified; Z20.822 Contact with and (suspected) exposure to COVID-19
CPT/HCPCS: 36415; 80048; 81001; 83036; 85025; 87077; 87086; 87186; 87635; 93005; C9803

== ENCOUNTER 2022-03-24 10:56 | Day surgery (SDC) | payer MEDICARE, OTHER, SELFPAY ==
[2022-03-23 07:18] VITALS: BMI 22.1
[2022-03-24] VITALS (12 sets, daily range): BP systolic 114–158; BP diastolic 55–87; PULSE 51–94; RESP 12–46; TEMP 36.2–36.9; O2SAT 92–100; BMI 22.1; BMI 22.9
[2022-03-24] MEDS: LACTATED RINGERS 1,000 ML 84 ML IV ×2 (11:32→15:47)
[2022-03-24] MEDS: VANCOMYCIN 1,000 MG/200 ML PIGGYBACK 200 MG IV (11:33)
[2022-03-24] MEDS: ACETAMINOPHEN 325 MG TABLET 975 MG PO (11:34)
[2022-03-24] MEDS: CELECOXIB 200 MG CAPSULE PO (11:37)
--- NOTE | 2022-03-24 13:24 | PM.PREOP ---
Pre-operative Note COVID-19 COVID-19 status: Negative Interval Note History & Physical reviewed/Exam performed by Physician: Yes Changes to H&P: No
--- NOTE | 2022-03-24 13:25 | P.OP_ITS ---
Operative Date/Time/Diagnoses Date of procedure: 03/24/22 Time of procedure: 13:25 Pre-op diagnosis: Severe left hip OA Post-op diagnosis: same Procedure & Clinicians Procedure: Left total hip arthroplasty anterior approach Same procedure as scheduled: Yes Indications: The patient has had progressively worsening left hip pain with radiographic changes consistent with arthritis. Non-operative management has failed and the patient has requested total hip replacement. The risks, benefits and alternatives to surgery were discussed with the patient prior to proceeding. Risks discussed included, but were not limited to, failure to relieve pain, leg length discrepancy, dislocation, stiffness, infection, nerve damage, deep venous thrombosis, pulmonary embolism, stroke, coma, heart attack, permanent paralysis and , as well as the potential need for eventual revision of the prosthetic. Surgeon: Rosana Juárez Research And Development Tester: Pat Clark Anesthesia Type: General and Spinal Operative Notes Findings: Severe left hip osteoarthritis, adequate stability Closure Type: primary Specimen(s): none sent Prosthetic devices, grafts, tissues, transplants, or devices: Juárez and nephew standard anthology size 6, neutral poly liner, 32 x -3 cobalt head, one 6.5 mm screw, R3 50 Estimated Blood Loss (mL): 250 Blood products transfused: none Procedure in detail: The patient was brought to the operating room. Patient was carefully positioned in the supine position. Time-out was performed and antibiotics were given. Anesthesia was induced. She was positioned in the on the table in order to allow hyperextension of the hip. The left lower extremity was prepped and draped in a standard sterile fashion. An anterior left hip incision was made 1 fingerbreadth lateral to the anterior superior iliac spine and extended distally towards the greater trochanter. Dissection was carried out through skin and subcutaneous tissues. Superficial hemostasis was achieved. The fascia over the tensor fascia pancho was defined and incised with a knife. Two Allis clamps were used to grasp the fascia. Tensor fascia pancho was retracted laterally. A gelpi retractor was placed. Dissection was carried out down along the neck. The circumflex vessels were carefully identified and cauterized with the Aqua Mantis. There was good visualization of the femoral neck. A Cobra was placed superior to the neck and the gluteus fibers were carefully stripped from that superior aspect of the capsule. A 2nd retractor was placed along the inferior aspect of the neck. The rectus insertion along the capsule was partially released. A 3rd retractor that was then gently placed over the rim of the acetabulum under the rectus. Capsule was carefully incised and released from the intertrochanteric line circumferentially superior to the mid sagittal line and inferiorly to the mid sagittal line until the lesser trochanter was palpable. A tag stitch was placed both in the superior and inferior limb of the capsular insertion. Along the acetabulum capsule was also released up to the mid sagittal 12:00 position. A portion of the labrum was resected. A saw was used to perform an osteotomy at the level of the intertrochanteric line and the junction of the superior femoral neck leaving approximately 1 finger breath of residual inferior neck above the lesser trochanter. A 2nd cut was made along the femoral neck at the base of the head and a napkin ring of neck was removed. Corkscrew was placed in the femoral head and the head was removed without difficulty. Retractors were then repositioned around the acetabulum. Residual labrum was resected and additional osteophytes were removed. A reamer that was 4 mm below the templated size was placed by hand in the acetabulum and it was reamed to centralize the acetabulum. It was then reamed up to 2 under the templated size and fluoroscopy was brought in to confirm the position of the reaming and depth of reaming. I reamed 1 under the anticipated size. A trial cup was placed and noted that it was appropriately sized and fluoroscopy confirmed position and depth. The component was open and inserted without difficulty fluoroscopic imaging was used to confirm that the cup had been adequately seated and was well positioned. It was further stabilized with a single screw. Neutral poly liner was placed. The cup was tested and noted to be stable. Attention was then directed to the femur. The femur was gently hyperextended additional capsular release was performed as needed in order to allow adequate visualization of the proximal femur with elevation of the femur. Patient was placed in a hyperextended slightly adducted position with maximum external rotation. Box osteotome was used to check for any residual neck as well as sclerotic bone along the trochanter. [place] pepper was placed in the femur. Additional broaching was performed. Canal finder was used to determine the alignment of the canal and position. Size 1 broach was placed. The canal was then appropriately broached up to the templated size as long as there was adequate stability of the broach and serial advancement of the broach without excessive impingement. Specific attention was directed at avoiding varus attempting to direct the distal aspect of the broach more anteriorly and avoiding excessive anteversion. Trial reduction showed acceptable range of motion, good stability, no posterior impingement, voodoo of leg length and appropriate lateral shuck. I also hyperflexed the hip and checked that there was no impingement anteriorly and there was good stability with flexion, adducti on and internal rotation. Marcaine and Exparel were injected. The stem was placed without difficulty. Repeat trial reduction and x-ray showed acceptable overall position, length, and no evidence of the femoral fracture. Final head was placed. Wound was meticulously irrigated with normal saline. The hip was reduced and additional Exparel and Marcaine were injected. The capsule was closed with interrupted nonabsorbable sutures. The fascia of the tensor was closed with interrupted and running Vicryl. No drain was placed. Any tensor fascia pancho muscle that appeared to be contused or injured which was a minimal amount was carefully resected. Capsule around the tensor was injected with Exparel and Marcaine. The skin was closed with barbed stitches for the subcutaneous tissue and skin. We also used surgical glue. The wound was dressed sterilely. Brief Betadine soak was also used and was meticulously irrigated with normal saline. Patient was transferred to recovery room in satisfactory condition. Complications: none Post-operative Condition: stable Disposition: Acute Care Plan for aftercare: The patient will be maintained on a standard total hip replacement protocol with weight bearing as tolerated and anterior hip precautions. The patient will receive Aspirin and sequential compression devices for DVT prophylaxis. The patient will be discharged home when safe for the home environment.
--- NOTE | 2022-03-24 13:30 | DI.RAD.S_ITS ---
PROCEDURE: XR HIP W PEL IF DONE LT 2V INDICATIONS: left total hip inner-op TECHNIQUE: AP pelvis and lateral view of the left hip acquired. COMPARISON: [facility], CR, [id number] W PEL IF PERFORMED, 09/13/2017, 14:59. FINDINGS: 3 submitted fluoroscopic images demonstrate placement of a left hip arthroplasty with prosthetic components in expected positions. IMPRESSION: Intraoperative images demonstrating placement of left hip arthroplasty with prosthetic components in expected positions on the single frontal views. Dictated by: Jose Cruz CAPPS Interpreted: Medardo Gao MD on 03/24/2022 at 16:32 Transcribed by: STEFANO on 03/24/2022 at 16:32 Approved by: Medardo Gao M.D. on 03/24/2022 at 16:51
--- NOTE | 2022-03-24 13:35 | PM.HP.1 ---
History of Present Illness History of Present Illness Date Patient Seen: 03/24/22 Time Patient Seen: 13:20 Chief complaint: LEFT BONG *OPB* Narrative: She notes continued severe left hip pain. It interferes with her lifestyle and activities. It is getting progressively worse. She has a history of a right total hip arthroplasty and did reasonably well after that. She notes pain on a daily basis restricts her ability to ambulate and do her activities. 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) Measles (1952) Mumps (1953) Osteopenia (2009) Shoulder pain (2010) Surgical History Anesthesia History of colonoscopy with polypectomy (03/04/15) History of rectal surgery S/P total hip arthroplasty (09/11/17) Status post appendectomy Status post arthroscopy Status post cervical spinal fusion (10/2012) Status post colonoscopy (2008) Status post hysterectomy (1982) Status post lumbar laminectomy (01/24/17) Status post lumbar spine surgery for decompression of spinal cord (04/2012) Status post reduction mammoplasty Family & Social History Family History Brother Age: 82 Cancer, colon Father Dementia Grandmother CVA (cerebral vascular accident) Mother CVA (cerebral vascular accident) Hypertension Hyperlipidemia Grandmother Cancer Grandfather No problems noted. Grandfather Surgical complication Social History: household members spouse Prior Living Arrangements House Safety & Behavioral: Feels Safe in Current Yes Environment Been Physically Hurt or No Threatened By a Person Suicidal Ideation Description None Suicide Plan Description No Plan Tobacco & Substance use: Smoking Status Never smoker alcohol intake current alcohol intake frequency 0-2 drinks per day Substance Use Type does not use Meds Home Medications and Allergies Home Medications Medication Instructions Recorded Confirmed Type Lactobacillus 40-Bifidobact 100 cap PO QDAY ##0 12/22/11 03/24/22 History 3-S.thermophilus 100 billion cell capsule potassium citrate 99 mg capsule 99 mg PO DAILY 09/26/17 03/24/22 History turmeric root extract 1 tab PO QDAY 09/26/17 03/24/22 History hyaluronic acid, hydrol (bulk) miscellaneous 09/07/18 03/21/22 History [Hydrolyzed Hyaluronic Acid] magnesium PO 09/07/18 03/21/22 History omega-3 fatty acids 500 mg PO DAILY 11/06/20 03/23/22 History rosuvastatin 5 mg tablet 2.5 mg PO .QOD #45 tabs 05/20/21 03/24/22 Rx estradiol 0.01% (0.1 mg/gram) 1 g vaginal 2XW #42.5 grams 10/18/21 03/24/22 Rx vaginal cream amlodipine 5 mg tablet 5 mg PO DAILY 03/23/22 03/24/22 History Allergies Allergy/AdvReac Type Severity Reaction Status Date / Time No Known Drug Allergies Allergy Verified 03/24/22 11:21 Review of Systems Review of Systems Narrative: No recent cardiac or respiratory symptoms, she notes she is been feeling well. No recent abdominal problems only complaint is of ongoing significant left hip pain. Exam Vital Signs (past 8 hours): - 03/24/22 11:25 Temperature 98.4 F Pulse Rate 76 Respiratory Rate 16 Blood Pressure 158/84 H Pulse Oximetry 99 Oxygen Delivery Method Room Air Oxygen Delivery Method Room Air Narrative Exam Narrative: HEENT is benign, lungs are clear, cor regular rate and rhythm, abdomen soft and benign, left hip pain with flexion, active flexion is 110, external rotation is 20 internal rotation is about 10 with moderate pain, skin intact, moderate crepitation with range of motion, neurologically intact distally Objective Labs Labs: Severe left hip osteoarthritis, right total hip arthroplasty with acceptable overall alignment Assessment & Plan Assessment and plan (1) Osteoarthritis of left hip: Status: Acute Plan I have recommended a left total hip arthroplasty. The plan is for an anterior approach. She is having incapacitating pain. She has a history of a right total hip arthroplasty which was done with a posterior approach and she did very well with that. Procedure options risks benefits and complications were discussed in detail. Options risks benefits and complications discussed. Time Spent With Patient Critical Care time: I spent a total of [] minutes of critical care time on this patient's care today; this time is exclusive of procedural time.
[2022-03-24] MEDS: CEFAZOLIN 2 GM/100 ML PREMIX 100 ML IV ×2 (14:20→22:17)
[2022-03-24] MEDS: TRANEXAMIC ACID 1,000 MG VIAL 2000 MG INJ ×2 (14:23→16:15)
--- NOTE | 2022-03-24 14:34 | SUR.OPER ---
Patient supine on padded [place] table, one arm on padded arm board at <90, other arm padded and secured with tape across patient's chest, both legs secured in padded traction boots and positioned per surgeon, padded post at patient's groin, pressure points checked and padded.
[2022-03-24] MEDS: SODIUM CHLORIDE IRRIG SOLUTION 250 ML, POVIDONE-IODINE SPONGE STICKS 1 APPLIC IRR (15:02)
[2022-03-24] MEDS: BUPIVACAINE 0.25% (PF) 60 ML, EPINEPHrine 0.3 MG INJ (15:06)
[2022-03-24] MEDS: BUPIVACAINE LIPOSOME 266 MG/20 ML VIAL INJ (15:20)
[2022-03-24] MEDS: fentaNYL 100 MCG/2 ML INJ IV ×3 (16:48→17:31)
--- NOTE | 2022-03-24 17:00 | DI.RAD.S_ITS ---
PROCEDURE: XR HIP W PEL IF DONE LT 2V INDICATIONS: POST OP LEFT TOTAL ANTERIOR HIP TECHNIQUE: AP pelvis and lateral view of the left hip acquired. COMPARISON: [facility], CR, XR HIP W PEL IF DONE LT 2V, 03/24/2022, 15:33. [facility] [place], CR, XR PELVIS WITH LATERAL HIP LEFT, 12/16/2021, 14:19. FINDINGS: Bones: Patient is status post left hip arthroplasty, with hardware components in expected positions. The hip joint appears congruent. The visualized bony structures appear intact. Stable appearance of right hip arthroplasty. Soft tissues: Overlying postoperative changes are noted. No suspicious soft tissue densities. IMPRESSION: Postoperative changes reflecting left hip arthroplasty. Dictated by: Rocio Hernandez M.D. on 03/25/2022 at 13:42 Approved by: Rocio Hernandez M.D. on 03/25/2022 at 13:42
[2022-03-24] MEDS: HYDROMORPHONE 2 MG INJ IV ×5 (17:01→17:30)
[2022-03-24] MEDS: OXYCODONE IR 5 MG TABLET PO ×2 (17:03→17:31)
[2022-03-24] MEDS: ONDANSETRON 4 MG/2 ML INJ IV ×2 (17:31→17:56)
--- NOTE | 2022-03-24 18:08 | SUR.PHASEI ---
Patient needing to void but unable to void after attempting the bedpan; bladder scan reveals [address] Juárez; verbal orders received for straight cath. Inserted straight cath without difficulty, 800 mls of clear, yellow urine emptied. Tolerated well.
--- NOTE | 2022-03-24 18:41 | PC.NURSE ---
Pt arrived to the unit at 1835. Received report from FREDERICK Barnhart in PACU. Pt arrived on 2L of O2 via NC. Pt was actively vomiting when coming up from the PACU. Pt vomited approximately 50 ml. Pt was given ice chips. Pt is SL with an 20G IV in her left wrist. Pt is drowsy but easily abusable and is A&Ox4. Aquocel dressing in place over the surgical site and is dry and intact.
[2022-03-24] MEDS: LACTATED RINGERS 1,000 ML 125 ML IV (20:00)
[2022-03-24] MEDS: ONDANSETRON 4 MG/2 ML INJ (21:14)
[2022-03-24] MEDS: METOCLOPRAMIDE 10 MG/2 ML INJ IV (23:11)
--- NOTE | 2022-03-24 23:24 | PC.NURSE ---
Pt. cont. to have N/V even after the Zofran earlier. Dr. Juárez notified ordered Reglan & Compazine, with specific instruction to give Reglan first. If Reglan not effective give we can medicated her with Compazine.10 mg. IVP.
--- NOTE | 2022-03-25 00:28 | PC.NURSE ---
Reassessed patient reported feels much better, the last medicine you gave me helped Declined her Tylenol & her Ibuprofen, denies pain @ this time> Will cont. POC & monitor.
[2022-03-25 00:39] VITALS: BP 138/59; PULSE 60; RESP 18; TEMP 36.3; O2SAT 100
[2022-03-25 04:42] VITALS: BP 118/70; PULSE 69; RESP 18; TEMP 36.6; O2SAT 95
[2022-03-25] MEDS: ACETAMINOPHEN 325 MG TABLET 650 MG PO ×3 (04:52→17:13)
[2022-03-25] MEDS: IBUPROFEN 400 MG TABLET PO ×3 (04:52→17:13)
[2022-03-25] MEDS: SODIUM CHLORIDE 0.9% FLUSH 10 ML IV ×2 (06:01→09:50)
[2022-03-25] MEDS: CEFAZOLIN 2 GM/100 ML PREMIX 100 ML IV (06:01)
[2022-03-25 07:26] LABS: Hematocrit 35.3 % (36-46)
--- NOTE | 2022-03-25 08:01 | PM.PNPO.1 ---
Subjective Subjective Date Patient Seen: 03/25/22 Time Patient Seen: 08:01 Interval history: Pt sitting up comfortably in bed. Expresses great hesitancy about going home; she says she was hospitalized for 4-5 days following R BONG and then had to immediately return to ED after discharge d/t pain. Does not want to molina things. She c/o N/V until about 0100 but is feeling much better now. She has not worked w/ PT yet. She c/o significant pain in left hip when transferring to bedside commode. No problems voiding. Exam Vital Signs (past 8 hours): - 03/25/22 00:39 03/25/22 04:42 Temperature 97.4 F L 97.9 F Pulse Rate 60 69 Respiratory Rate 18 18 Blood Pressure 138/59 L 118/70 Pulse Oximetry 100 95 Oxygen Flow Rate 0 0 Fraction of Inspired Oxygen 94 Oxygen Delivery Method Nasal Cannula Oxygen Flow Rate 0 Narrative Exam Narrative: 3/5 strength in hip flexors, quadiceps, hamstrings on left; 5/5 DF, PF, EHL. Sensation to light touch intact throughout LLE. Calves soft, compressible, nontender and without palpable cords or masses. Aquacel dressing CDI. 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) Measles (1952) Mumps (1953) Osteopenia (2009) Shoulder pain (2010) Surgical History (Updated 03/25/22 @ 08:05 by Iris Sosa PA-C) Anesthesia History of colonoscopy with polypectomy (03/04/15) History of rectal surgery S/P total hip arthroplasty (09/11/17) Status post appendectomy Status post arthroscopy Status post cervical spinal fusion (10/2012) Status post colonoscopy (2008) Status post hysterectomy (1982) Status post lumbar laminectomy (01/24/17) Status post lumbar spine surgery for decompression of spinal cord (04/2012) Status post reduction mammoplasty Family History Brother Age: 82 Cancer, colon Father Dementia Grandmother CVA (cerebral vascular accident) Mother CVA (cerebral vascular accident) Hypertension Hyperlipidemia Grandmother Cancer Grandfather No problems noted. Grandfather Surgical complication Social History marital status: household members: spouse occupational status: previously employed Smoking Status: Never smoker alcohol intake: current substance use type: does not use Assessment & Plan Post-op Assessment and plan (1) S/P total hip arthroplasty: Assessment and Plan narrative: PT today, likely d/c home tomorrow once assured of consistent pain control w/ oral medication. Postoperative Procedures: Procedures Operation Date: 03/24/22 13:00 Actual Procedure Side Surgeon p Total Hip Arthroplasty/Anterior Approach Left Rosana Juárez MD Postoperative day: 1 Quality VTE Deep Vein Thrombosis/Pulmonary Embolism Present on Admission: No
[2022-03-25 08:15] VITALS: BP 134/69; PULSE 71; RESP 16; TEMP 36.8; O2SAT 97
[2022-03-25] MEDS: DOCUSATE 100 MG CAPSULE PO (09:50)
[2022-03-25] MEDS: AMLODIPINE 5 MG TABLET PO (09:50)
[2022-03-25] MEDS: ASPIRIN EC 81 MG TABLET PO (09:50)
--- NOTE | 2022-03-25 10:17 | PT.IIE ---
Current Diagnoses Unilateral primary osteoarthritis, left hip (03/24/22) Presence of unspecified artificial hip joint (03/24/22) Surgery Performed Operation Date: 03/24/22 13:00 Actual Procedures p Total Hip Arthroplasty/Anterior Approach(Left) - Rosana Juárez MD Surgical History (Last Reviewed 05/11/19 @ 09:04 by Millie Yancey [facility]) Anesthesia History of colonoscopy with polypectomy (03/04/15) History of rectal surgery S/P total hip arthroplasty (09/11/17) Status post appendectomy Status post arthroscopy Status post cervical spinal fusion (10/2012) Status post colonoscopy (2008) Status post hysterectomy (1982) Status post lumbar laminectomy (01/24/17) Status post lumbar spine surgery for decompression of spinal cord (04/2012) Status post reduction mammoplasty Medical History (Last Updated 06/15/21 @ 14:27 by Eveline Lux DO) Abnormal Pap smear of cervix (1982) Adrenal adenoma Cervical radiculopathy (10/02/13) Cervical spine disease Chicken pox (1951) Chronic back pain Chronic headaches Colon polyps (03/04/15) 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) Family history of stroke Hyperlipidemia Hypertension (12/03/14) Lumbar spinal stenosis 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) Measles (1952) Mumps (1953) Osteopenia (2009) Shoulder pain (2010) Physical Therapy Inpatient Evaluation/Re-Eval M1 PT/OT-IP Prior Functional Status Start: 03/25/22 13:33 Freq: NEEDED Status: Active Protocol: Document 03/25/22 10:17 AB (Rec: 03/25/22 13:40 AB [id number]) Medical Review Prior Functional Status Medical History Reviewed Yes Communication able to make needs known Mobility and Gait pt state that she is independent with all mobilities and ambulation without AD Social History Household Members spouse Living Arrangements House Number of Floors (Floors) 3 or More Floors Number of Stairs To Enter/Railing? pt stays on the main level of the house has a chair lift to enter the house Home Environment Standard Height Toilet,Walk in Shower Home Equipment Front Wheel Walker,Raised Toilet Seat w/Armrests,Hand Held Shower,Grab Bars In Shower Additional Social History Comment pt has an adjustable bed M2 PT-IP Current Condition Start: 03/25/22 13:33 Freq: NEEDED Status: Active Protocol: Document 03/25/22 10:17 AB (Rec: 03/25/22 13:40 AB [id number]) Physical Therapy Current Condition Current Condition Evaluation Date 03/25/22 Treatment Diagnosis s/p L BONG anterior approach; difficulty in walking Onset Date 03/24/22 M3 PT-IP Subjective Start: 03/25/22 13:33 Freq: NEEDED Status: Active Protocol: Document 03/25/22 10:17 AB (Rec: 03/25/22 13:40 AB [id number]) Subjective Physical Therapy Visit Type Type Initial Evaluation Visit Start Time 10:17 Visit Stop Time 10:50 Total Visit Minutes 33 Number of INTERPRETER DEAF Visits 0 Physical Therapy Visit Comments Patient Comments agreeable to do PT Therapy Pain Assessment Pain When Pain Assessed During Mobility Pain Present Pain Present Pain Reported Location Left Hip Intensity 6 Scale Used Numeric (0 - 10) Pain Management Techniques Distraction,Elevation, Modification of Treatment,Re- positioning,Timing of Activity with Medications M4 PT-IP Mobility and Gait Start: 03/25/22 13:33 Freq: NEEDED Status: Active Protocol: Document 03/25/22 10:17 AB (Rec: 03/25/22 13:40 AB [id number]) PT-Bed Mobility Assessment Supine to Sit Supine to Sit Standby Assistance PT-Transfer Assessment Sit to and From Stand Sit to and from Stand Standby Assistance,1 Person Assistance,Use of Upper Extremities Equipment Transfer Assistive Device Gait Belt Orthotic/Prosthetic Devices or Brace: No Transfers Transfer Destination Chair Transfer Technique ambulated Transfer Ability Level of Assist Standby Assistance,1 Person Assistance,Use of Upper Extremities Comments Mobility Comments spouse in room with pt. educated pt and spouse regarding anterior hip precautions. completed supine to sit x 2 attempts : SBA with cues for techniques. pt able to sit on EOB SBA. completed sit to stand SBA and ambulated in room using FWW SBA ~ 30 ft. pt agreed to sit on the chair. positioned on the chair. call light and table placed wtihin reach. Gait Assessment Gait Gait Assistance Required: Standby Assistance Distance (Feet) 30 Able to Maintain Weight Bearing Status Yes During Gait Assistive Devices Assistive Device Gait Belt,Front Wheeled Walker Orthotic/Prosthetic Devices or Brace: No Gait Deviations General Gait Pattern Antalgic,Decreased Stride Length,Decreased Feet Clearance Factors Limiting Gait Function Factors Limiting Gait Function Decreased Activity Tolerance, Decreased Strength,Difficulty Following Directions,Limited Range of Motion,Pain,Poor Balance,Poor Safety Awareness PT-Balance Assessment Sitting Balance and Reactions Static Sitting Balance Ability Normal Dynamic Sitting Balance Ability Good Standing Balance and Reactions Static Standing Balance Ability Fair Dynamic Standing Balance Ability Fair Device Used FWW M5 PT-IP Objective Assessments Start: 03/25/22 13:33 Freq: NEEDED Status: Active Protocol: Document 03/25/22 10:17 AB (Rec: 03/25/22 13:40 AB [id number]) Orientation Orientation/Cognition Level of Alertness Alert Orientation Name,Place,Situation Language Function Ability No Deficits Noted Safety Awareness Decreased Safety Awareness Memory Description Short Term Impaired Gross Range of Motion Lower Extremity ROM Assessment Within Functional Limits Coordination Assessment Gross Coordination Gross Coordination WNL Sensation Assessment Sensation Gross Sensation WNL Muscle Tone Muscle Tone WNL No M6 PT-IP Treatment Start: 03/25/22 13:33 Freq: NEEDED Status: Active Protocol: Document 03/25/22 10:17 AB (Rec: 03/25/22 13:40 AB [email or web address]) Physical Therapy Treatment Education Education Provided Precautions,Weight Bearing Status,Post-Op Packet,Safety M7 PT-IP Assessment and Plan Start: 03/25/22 13:33 Freq: NEEDED Status: Active Protocol: Document 03/25/22 10:17 AB (Rec: 03/25/22 13:40 AB [email or web address]) PT Summary Assessment and Plan Potential Rehabilitation Potential Good Status of Condition at Evaluation Stable Summary Impairments Pain,ROM,Strength,Balance, Coordination,Sensation,Tone, Cognition,Bed Mobility, Transfers,Gait,Activity Tolerance Assessment Summary pt requiring SBA with mobility but cues needed for techniques and safety. pt plans to go home with spouse to assist as needed. pt may go home when medically stable. Goals Bed Mobility Goal Independent Transfer Goal Independent,Front Wheeled Walker Gait Goal Independent,Front Wheel Walker Gait Distance 200 Days to Meet Goals 3 Frequency of Treatment Frequency Of Treatment Twice a Day Treatment Plan Physical Therapy Treatment Plan Bed Mobility Training,Transfer Training,Gait Training, Therapeutic Exercise,Balance Retraining,Post Op Education, Discharge Planning,Hot or Cold Pack,Neuromuscular Re-ed, Coordination Retraining,Manual Therapy Precautions Anterior Hip Precautions No Hip Extension,No Hip External Rotation Weight Bearing Status Weight Bearing Status Weight Bear as Tolerated Allowed Weight Bearing Amount (enter % LLE WBAT or #) (%) Recommendations To Nursing Amount of Assist Needed 1 Person Assist Discharge Recommendations PT Discharge Recommendations Home with Assistance, Outpatient PT Transportation Needs at Discharge Private Vehicle
[2022-03-25 12:10] VITALS: BP 135/88; PULSE 68; RESP 16; TEMP 37; O2SAT 98
[2022-03-25 12:17] VITALS: BP 123/63; PULSE 79; RESP 16; TEMP 37; O2SAT 96
--- NOTE | 2022-03-25 13:11 | CM.DANOTE ---
Initial DCP Assessment Note Pt is a 76 yo female, resident of [place], now POD#1 from left BONG surgery by Dr Juárez PCP: Nehal Llanes Payer: [employer] Short Ins Reviewed chart, met w/patient this morning to introduce self and role Patient is typically indp and active at baseline, has been through multiple Orthopedic surgeries and feels confident about her return home w/spouse to assist upon discharge Patient does relay her concern, that prior discharges have been delayed d/t pain and muscle spasms and so is advocating to remain in the hospital this evening, Ortho PA aware Plan: Expect discharge tomorrow, home w/spouse and likely outpatient therapy Following closely in case any DC needs or concerns arise SANDY Marie Discharge Planning/Care Management CM Discharge Assessment Start: 03/25/22 13:07 Freq: Status: Active Protocol: Document 03/25/22 13:07 BRAIN (Rec: 03/25/22 13:10 [id number]) Discharge Planning Assessment Assigned Manufacturing Process Technician SANDY Eastman DPOA/Assigned Designee Name Tomy Collins, spouse Contact Information [phone] Advance Directives? Yes Advance Directives on File No History Provided By Patient,Medical Record Prior Living Arrangements House Household Members spouse Type of transporation used prior to Drives own vehicle admit Independent with ADL's Yes Is patient alert and oriented? Yes Comment r/o need for HH Barriers to Discharge No Comment Once medically discharged, anticipate home Discharge Plan Home Transportation Arrangement Spouse Referrals Initiated None needed
--- NOTE | 2022-03-25 15:15 | PT.IPTN ---
Current Diagnoses Unilateral primary osteoarthritis, left hip (03/24/22) Presence of unspecified artificial hip joint (03/24/22) Surgery Performed Operation Date: 03/24/22 13:00 Actual Procedures p Total Hip Arthroplasty/Anterior Approach(Left) - Rosana Juárez MD Physical Therapy Treatment Note M2 PT-IP Current Condition Start: 03/25/22 13:33 Freq: NEEDED Status: Active Protocol: Document 03/25/22 10:17 AB (Rec: 03/25/22 13:40 AB [email or web address]) Physical Therapy Current Condition Current Condition Evaluation Date 03/25/22 Treatment Diagnosis s/p L BONG anterior approach; difficulty in walking Onset Date 03/24/22 M3 PT-IP Subjective Start: 03/25/22 13:33 Freq: NEEDED Status: Active Protocol: Document 03/25/22 14:58 KS (Rec: 03/25/22 16:05 KS [id number]) Subjective Physical Therapy Visit Type Type Treatment Note Visit Start Time 14:58 Visit Stop Time 15:15 Total Visit Minutes 17 Number of SAMPLE TAKER OPERATOR Visits 1 Physical Therapy Visit Comments Patient Comments agreeable to do PT Therapy Pain Assessment Pain When Pain Assessed During Mobility Pain Present Pain Present Pain Reported M4 PT-IP Mobility and Gait Start: 03/25/22 13:33 Freq: NEEDED Status: Active Protocol: Document 03/25/22 14:58 KS (Rec: 03/25/22 16:05 KS [id number]) PT-Bed Mobility Assessment Supine to Sit Supine to Sit Standby Assistance Sit to Supine Sit to Supine Standby Assistance Scooting Scooting to Edge of Bed Standby Assistance PT-Transfer Assessment Sit to and From Stand Sit to and from Stand Standby Assistance,1 Person Assistance,Use of Upper Extremities Equipment Transfer Assistive Device Gait Belt,Front Wheeled Walker Orthotic/Prosthetic Devices or Brace: No Transfers Transfer Destination Bed,Chair Transfer Technique ambulated Transfer Ability Level of Assist Standby Assistance,1 Person Assistance,Use of Upper Extremities Comments Mobility Comments Pt SBA for all mobility this PM including ambulation w/ FWW . Pt able to safely ambulate ~ 100 ft w/ FWW SBA and w/ good awareness and adherence to precautions. Has chair lift at home and supportive spouse. Pt will benefit from OPPT to improve strength, stability, ROM, and activity tolerance. Gait Assessment Gait Gait Assistance Required: Standby Assistance Distance (Feet) 100 Able to Maintain Weight Bearing Status Yes During Gait Assistive Devices Assistive Device Gait Belt,Front Wheeled Walker Orthotic/Prosthetic Devices or Brace: No Gait Deviations General Gait Pattern Antalgic,Decreased Stride Length,Decreased Feet Clearance Factors Limiting Gait Function Factors Limiting Gait Function Decreased Activity Tolerance, Decreased Strength,Difficulty Following Directions,Limited Range of Motion,Pain,Poor Balance,Poor Safety Awareness Comments Gait Comments Good tolerance and safe use of FWW. Stair Climbing Assessment Comments Stair Climbing Comments Has chair lift PT-Balance Assessment Sitting Balance and Reactions Static Sitting Balance Ability Normal Dynamic Sitting Balance Ability Good Standing Balance and Reactions Static Standing Balance Ability Good Dynamic Standing Balance Ability Good Device Used FWW M5 PT-IP Objective Assessments Start: 03/25/22 13:33 Freq: NEEDED Status: Active Protocol: Document 03/25/22 10:17 AB (Rec: 03/25/22 13:40 AB [id number]) Orientation Orientation/Cognition Level of Alertness Alert Orientation Name,Place,Situation Language Function Ability No Deficits Noted Safety Awareness Decreased Safety Awareness Memory Description Short Term Impaired Gross Range of Motion Lower Extremity ROM Assessment Within Functional Limits Coordination Assessment Gross Coordination Gross Coordination WNL Sensation Assessment Sensation Gross Sensation WNL Muscle Tone Muscle Tone WNL No M6 PT-IP Treatment Start: 03/25/22 13:33 Freq: NEEDED Status: Active Protocol: Document 03/25/22 14:58 KS (Rec: 03/25/22 16:05 FL [id number]) Physical Therapy Treatment Education Education Provided Precautions,Weight Bearing Status,Post-Op Packet,Safety M7 PT-IP Assessment and Plan Start: 03/25/22 13:33 Freq: NEEDED Status: Active Protocol: Document 03/25/22 14:58 KS (Rec: 03/25/22 16:05 FL [id number]) PT Summary Assessment and Plan Potential Rehabilitation Potential Good Summary Impairments Pain,ROM,Strength,Balance, Coordination,Sensation,Tone, Cognition,Bed Mobility, Transfers,Gait,Activity Tolerance Progress Towards Goals Progressing Toward Goals Assessment Summary Pt SBA w/ all mobility and ambulation. Feels physically cabaple to return home w/ spouse assisting and OPPT. She is concerned about pain management at home, RN aware. Goals Bed Mobility Goal Independent Transfer Goal Independent,Front Wheeled Walker Gait Goal Independent,Front Wheel Walker Gait Distance 200 Days to Meet Goals 3 Frequency of Treatment Frequency Of Treatment Twice a Day Treatment Plan Physical Therapy Treatment Plan Bed Mobility Training,Transfer Training,Gait Training, Therapeutic Exercise,Balance Retraining,Post Op Education, Discharge Planning,Hot or Cold Pack,Neuromuscular Re-ed, Coordination Retraining,Manual Therapy Precautions Anterior Hip Precautions No Hip Extension,No Hip External Rotation Weight Bearing Status Weight Bearing Status Weight Bear as Tolerated Allowed Weight Bearing Amount (enter % LLE WBAT or #) (%) Recommendations To Nursing Amount of Assist Needed 1 Person Assist Discharge Recommendations PT Discharge Recommendations Home with Assistance, Outpatient PT Transportation Needs at Discharge Private Vehicle
[2022-03-25] MEDS: OXYCODONE IR 5 MG TABLET PO (17:13)
--- NOTE | 2022-03-25 17:20 | PM.DS.1 ---
History of Present Illness History of Present Illness Date Patient Seen: 03/25/22 Time Patient Seen: 17:21 Chief complaint: LEFT BONG *OPB* Narrative: Operative Date/Time/Diagnoses Date of procedure: 03/24/22 Time of procedure: 13:25 Pre-op diagnosis: Severe left hip OA Post-op diagnosis: same Procedure & Clinicians Procedure: Left total hip arthroplasty anterior approach Same procedure as scheduled: Yes Indications: The patient has had progressively worsening left hip pain with radiographic changes consistent with arthritis. Non-operative management has failed and the patient has requested total hip replacement. The risks, benefits and alternatives to surgery were discussed with the patient prior to proceeding. Risks discussed included, but were not limited to, failure to relieve pain, leg length discrepancy, dislocation, stiffness, infection, nerve damage, deep venous thrombosis, pulmonary embolism, stroke, coma, heart attack, permanent paralysis and , as well as the potential need for eventual revision of the prosthetic. Surgeon: Rosana Juárez House Furnishings Supervisor: Pat Clark Anesthesia Type: General and Spinal Operative Notes Findings: Severe left hip osteoarthritis, adequate stability Closure Type: primary Specimen(s): none sent Prosthetic devices, grafts, tissues, transplants, or devices: Juárez and nephew standard anthology size 6, neutral poly liner, 32 x -3 cobalt head, one 6.5 mm screw, R3 50 Estimated Blood Loss (mL): 250 Blood products transfused: none Discharge Providers Provider Discharge Date: 03/25/22 Primary care physician: Nehal Llanes DO Consults: 03/24/22 11:00 Consult to Anesthesiology Routine Comment: Consulting Provider: Anesthesiologist Reason for consultation: Regional block for post operative pain control 03/24/22 18:38 Consult to Discharge Planning Routine Comment: Consult to Physical Therapy Evaluate & Treat Comment: Physician Instructions: post op BONG protocol Consult to Respiratory Therapy Evaluate & Treat Comment: Physician Instructions: Evaluate and treat Discharge provider: Iris Sosa PA-C Summary Hospital Course Discharge Diagnosis: Left hip osteoarthritis, s/p left total hip arthroplasty Hospital Course: Received call from Dr Juárez stating that per nursing, pt wants to discharge today. Please see progress note from earlier for more details and PE. Exam Vital Signs (past 8 hours): - 03/25/22 12:10 03/25/22 12:17 Temperature 98.6 F 98.6 F Pulse Rate 68 79 Respiratory Rate 16 16 Blood Pressure 135/88 123/63 Pulse Oximetry 98 96 Fraction of Inspired Oxygen 94 Oxygen Delivery Method Room Air Oxygen Flow Rate 0 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) Measles (1952) Mumps (1953) Osteopenia (2009) Shoulder pain (2010) Surgical History (Updated 03/25/22 @ 08:05 by Iris Sosa PA-C) Anesthesia History of colonoscopy with polypectomy (03/04/15) History of rectal surgery S/P total hip arthroplasty (09/11/17) Status post appendectomy Status post arthroscopy Status post cervical spinal fusion (10/2012) Status post colonoscopy (2008) Status post hysterectomy (1982) Status post lumbar laminectomy (01/24/17) Status post lumbar spine surgery for decompression of spinal cord (04/2012) Status post reduction mammoplasty Family History Brother Age: 82 Cancer, colon Father Dementia Grandmother CVA (cerebral vascular accident) Mother CVA (cerebral vascular accident) Hypertension Hyperlipidemia Grandmother Cancer Grandfather No problems noted. Grandfather Surgical complication Social History marital status: household members: spouse occupational status: previously employed Smoking Status: Never smoker alcohol intake: current substance use type: does not use Discharge Assessment & Plan Assessment and Plan Assessment: Left hip osteoarthritis, s/p left total hip arthroplasty Plan of Treatment: Discharge home, multimodal pain control, ASA 81 mg BID for VTE prophylaxis. Discharge Plan Discharge Plan Patient Disposition: Home Discharge orders & Medications Discharge Orders: Discharge (Order); Ordered 03/25/22 Ordered By: Rosana Juárez Prescriptions: New acetaminophen 325 mg Tablet 650 mg PO Q6HR PRN (Reason: fever or pain) Qty: 240 0RF aspirin 81 mg Tablet,Delayed Release (Dr/Ec) 81 mg PO BID Qty: 90 0RF ibuprofen 400 mg Tablet 400 mg PO Q6HR PRN (Reason: fever or pain) Qty: 120 0RF oxycodone 5 mg Tablet 5 mg PO Q4H PRN (Reason: pain, severe) Qty: 60 0RF Continued Lactobac 40-Bifido 3-S.thermop 100 billion cell Capsule 100 cap PO QDAY Qty: 0 rosuvastatin 5 mg tablet 2.5 mg PO .QOD Qty: 45 1RF estradiol 0.01 % (0.1 mg/gram) cream 1 g vaginal 2XW Qty: 42.5 0RF Rx Instructions: APPOINTMENT NEEDED FOR FURTHER REFILLS. THANK YOU! 10/18/21 omega-3 fatty acids Capsule 500 mg PO DAILY amlodipine 5 mg tablet 5 mg PO DAILY potassium citrate 99 mg Capsule 99 mg PO DAILY Label Comments: OTC medication turmeric root extract 1,000 mg tablet 1 tab PO QDAY Label Comments: turmeric-curcumin OTC Follow up/Referrals: Rosana Juárez MD [Physician] - As previously scheduled (Follow up with Pat Clark PA-C, on 04/07/2022 @ 3:20 pm at [facility] in [place].) Nehal Llanes DO [Primary Care Provider] - Diet/Activity/Treatments Diet: Diet as Tolerated Other treatments: Dressing/Wound care: -Keep Aquacell dressing in place until postoperative follow-up office visit. -Okay to shower. Keep wound out of direct water stream. No soaking or submerging until all the scabs fall off (approximately 6 weeks). -No lotions, ointments, or scar creams directly to the incision until the wound is healed (4-6 weeks), -Please call the office if dressing becomes wet, soiled, or saturated. Activities: -Maintain anterior hip precautions x6 weeks. -Weight-bearing as tolerated. Use front wheeled walker, and progress to cane when safe. -Continue with home exercises as directed by your physical therapist. -Elevate ?toes above the nose if you have significant swelling in your lower leg. (A wedge pillow is easiest.) -Ice your incision as needed for pain/inflammation/swelling. Protect your skin with a folded pillowcase. Follow-up: -Follow-up with your surgeon or PA in the office in 10-14 days after surgery. -Follow-up with your surgeon 6 weeks postoperatively. Call the office if you have chest pain, shortness of breath, significant swelling that will not resolve with elevating, fever over 101?, significantly worsening pain, or are concerned you might need to go to the Emergency Room. [facility]: [phone] Skin/Wound/Dressing Care Report to your healthcare provider any signs of infection, such as:: chills, fever, night sweats, unusual drainage and unusual redness Visit Report/Discharge Packet Instructions: DI for Hip Replacement, DI for Constipation, How to Prevent Falls Stand Alone Forms: Surgery Discharge Discharge Data Primary Care Provider: Nehal Llanes Attending Provider: Rosana Juárez VTE Deep Vein Thrombosis/Pulmonary Embolism Present on Admission: No
--- NOTE | 2022-03-25 19:27 | PC.NURSE ---
Discharge: Pt feels ready to discharge to home. She has been nervous about going home due to having pain control issues after her last surgery. She can feel that the pain is increasing now. She was given an oxy prior to discharge. Has been receiving routine acetaminophen and ibuprofen and these have been helpful. She is tolerating diet w/out problems. Has been able to void without difficulty. However UA did show positive. sensativities are back and was called to doctor. Pt had IV antibiotics in OR and briefly OP. This was felt to be enough antibiotics for what she has. Seen by PT and did pass, is up with walker and gait is steady. Reviewed d/c packet. Questions answered. Pt d/c to home via auto with spouse.
== END 2022-03-25 17:15 | disposition home or self-care (01) ==
LOC: OR 10:58 → AC 10:59
PROVIDERS: PCP Family Medicine; Referring Provider Orthopaedic Surgery; Visit Provider Orthopaedic Surgery
PROC: (CPT 27130; principal; 2022-03-24 13:00)
DX: M16.12 Unilateral primary osteoarthritis, left hip (principal); I10 Essential (primary) hypertension
CPT/HCPCS: 27130; 01214; 36415; 73502; 76000; 85014; 85018; 94760; 97116; 97161; C1776; C9290; J0171; J0690; J1100; J1170; J2405; J2704; J2765; J3010

== ENCOUNTER → 2022-04-05 09:23 | Outpatient (CLI) | payer MEDICARE, OTHER, SELFPAY ==
[2022-03-24 20:16] VITALS: BMI 22.9
--- NOTE | 2022-04-05 | DI.MG.S_ITS ---
UNILATERAL RIGHT DIGITAL DIAGNOSTIC MAMMOGRAM 3D/2D WITH ADDITIONAL VIEWS: 04/05/2022 CLINICAL: Additional evaluation requested from prior study. Comparison is made to exams dated: 03/17/2022 mammogram, 03/12/2021 mammogram, 02/11/2020 mammogram, 03/16/2018 mammogram, and 03/08/2017 mammogram - [facility]. The right breast is heterogeneously dense, which may obscure small masses (category c / 51-75% glandular tissue). The possible developing focal asymmetry in the right breast central to the nipple middle depth is not reproduced and presumably represented superimposed breast tissue. No other significant masses or calcifications are seen in the breast. IMPRESSION: NEGATIVE There is no mammographic evidence of malignancy. Return to annual mammogram screening schedule is recommended. Based on the Tyrer Cuzick model (a risk assessment model) the patient's lifetime risk is 2.3% and her 10 year risk is 2.3%. According to the ACR, ACS, and NCCN guidelines, an annual breast MRI exam along with mammogram is recommended if the patient's lifetime risk is 20% or greater. This exam was interpreted at Station ID: [id number]. NOTE: For mammograms, a report in lay terms will be sent to the patient. Approximately 15% of breast malignancies will not be visualized mammographically. In the management of a palpable breast mass, a negative mammogram must not discourage biopsy of a clinically suspicious lesion. Electronically Signed By: Jonas yeung/lenora:04/05/2022 10:01:30 letter sent: Normal Exam ACR BI-RADS Category 1: Negative 3341F
== END ==
PROVIDERS: PCP Family Medicine; Referring Provider Family Medicine; Visit Provider Family Medicine
DX: R92.8 Other abnormal and inconclusive findings on diagnostic imaging of breast (principal)
CPT/HCPCS: 77065; G0279

== ENCOUNTER → 2022-05-04 06:44 | Outpatient (CLI) | payer MEDICARE, OTHER, SELFPAY ==
[2022-03-24 20:16] VITALS: BMI 22.9
[2022-05-04 08:06] LABS: Hematocrit 33.9 % (36-46); Hemoglobin 11.3 g/dL (12.0-16.0); Mean Corpuscular HGB Conc 33.3 % (30-36); Mean Corpuscular Hemoglobin 27.9 PG (26-34); Mean Corpuscular Volume 83.7 fL (80-100); Platelet Count 229 X10^3/uL (150-400); Red Blood Cell Count 4.06 X10^6/uL (4.0-5.2); Red Cell Distribution Width 14.2 % (11.6-14.8); White Blood Cell Count 4.1 X10^3/uL (4.5-11.0)
[2022-05-04 09:11] LABS: BUN Creatinine Ratio 23.5 (6-22); Blood Urea Nitrogen 16 mg/dL (7-17); Calcium 9.1 mg/dL (8.4-10.2); Carbon Dioxide 27 mmol/L (22-32); Chloride 105 mmol/L (98-107); Cholesterol 187 mg/dL (140-199); Estimated Glomerular Filt Rate > 60 mL/min (>60); Glucose 93 mg/dL (80-110); HDL Cholesterol 57 mg/dL (40-60); HEMOLYSIS < 15 (0-50); LDL Cholesterol Calculated 115 mg/dL (<100); Potassium 4.3 mmol/L (3.4-5.1); Sodium 137 mmol/L (137-145); Triglycerides 74 mg/dL (35-150)
== END ==
PROVIDERS: PCP Family Medicine; Referring Provider Family Medicine; Visit Provider Family Medicine
DX: E78.5 Hyperlipidemia, unspecified (principal); E87.6 Hypokalemia; I10 Essential (primary) hypertension
CPT/HCPCS: 36415; 80048; 80061; 85027

== ENCOUNTER → 2022-06-22 08:50 | Outpatient (CLI) | payer MEDICARE, OTHER, SELFPAY ==
[2022-03-24 20:16] VITALS: BMI 22.9
[2022-06-22 09:35] LABS: BUN Creatinine Ratio 23.3 (6-22); Blood Urea Nitrogen 17 mg/dL (7-17); Calcium 9.4 mg/dL (8.4-10.2); Carbon Dioxide 28 mmol/L (22-32); Chloride 101 mmol/L (98-107); Estimated Glomerular Filt Rate > 60 mL/min (>60); Glucose 54 mg/dL (80-110); HEMOLYSIS 25 (0-50); Potassium 4.2 mmol/L (3.4-5.1); Sodium 136 mmol/L (137-145)
== END ==
PROVIDERS: PCP Family Medicine; Referring Provider Family Medicine; Visit Provider Family Medicine
DX: I10 Essential (primary) hypertension (principal)
CPT/HCPCS: 36415; 80048

== ENCOUNTER → 2022-06-29 09:56 | Outpatient (CLI) | payer MEDICARE, OTHER, SELFPAY ==
[2022-03-24 20:16] VITALS: BMI 22.9
--- NOTE | 2022-06-29 10:03 | DI.CT.S_ITS ---
PROCEDURE: CT ABDOMEN ADRENAL PROTOCOL INDICATIONS: adrenal adenoma f/u TECHNIQUE: Noncontrast 3 mm thick sections acquired from the diaphragms to the iliac crests. After the administration of intravenous contrast, 3 mm thick venous-phase and 15-minute delayed images acquired from the diaphragms to the iliac crests. For radiation dose reduction, the following was used: automated exposure control, adjustment of mA and/or kV according to patient size. COMPARISON: None. FINDINGS: Image quality: Excellent. Lung bases: Lung bases are clear. Heart size is normal. Adrenal glands: Low-density mass arising from the body of the left adrenal gland measures 3.5 x 3.4 cm. There is a faint, fine internal septation along the superior margin. No suspicious nodularity or solid component. The right adrenal gland is normal. Solid organs: Liver is normal in size and enhancement. Gallbladder is partially decompressed and has a normal CT appearance . Biliary system is non dilated. Pancreas enhances normally. Spleen is normal in size and enhancement. Kidneys are normal in size and enhancement. No hydronephrosis or nephrolithiasis. Small bilateral renal cortical cysts. Peritoneum and bowel: Unenhanced bowel loops are normal in caliber and wall thickness. No free fluid or air. Nodes and vessels: No retroperitoneal or mesenteric adenopathy by size criteria. Aorta and inferior vena cava are normal in size. Mild abdominal aortic atherosclerotic calcification. Miscellaneous: No ventral hernias. Bones: No suspicious bony lesions. Lumbar fusion and hemilaminectomy changes in the lumbar spine. Grade 1 anterolisthesis L5-4 five, stable. No vertebral body compression fractures. IMPRESSION: 1. Stable benign left adrenal mass with features of an adenoma. 2. No other significant changes. Dictated by: Sonya Pham M.D. on 06/29/2022 at 16:34 Approved by: Sonya Pham M.D. on 06/29/2022 at 16:42
== END ==
PROVIDERS: PCP Family Medicine; Referring Provider Family Medicine; Visit Provider Family Medicine
DX: D35.02 Benign neoplasm of left adrenal gland (principal); N28.1 Cyst of kidney, acquired; M43.16 Spondylolisthesis, lumbar region; I70.0 Atherosclerosis of aorta; Z98.1 Arthrodesis status
CPT/HCPCS: 74170; Q9967

== ENCOUNTER → 2023-01-18 10:26 | Outpatient (CLI) | payer MEDICARE, OTHER, SELFPAY ==
[2022-12-21 08:34] VITALS: BMI 22.9
[2023-01-18 12:06] LABS: Creatinine Urine Random 142.6 mg/dL
[2023-01-18 12:23] LABS: Microalbumin Urine Random < 0.6 mg/dL (0-1.6)
== END ==
PROVIDERS: Family Provider Family Medicine; PCP Family Medicine; Referring Provider Family Medicine; Visit Provider Family Medicine
DX: I10 Essential (primary) hypertension (principal)
CPT/HCPCS: 82043; 82570

== ENCOUNTER → 2023-03-11 07:56 | Outpatient (CLI) | payer MEDICARE, OTHER, SELFPAY ==
[2022-12-21 08:34] VITALS: BMI 22.9
[2023-03-11 09:19] LABS: Appearance Urine UA CLEAR; Bilirubin Urine UA NEGATIVE (NEGATIVE); Color Urine UA YELLOW; Glucose Urine UA NEGATIVE (Negative); Ketones Urine UA NEGATIVE (NEGATIVE); Leukocyte Esterase Urine UA 3+ (NEGATIVE); Nitrite Urine UA NEGATIVE (Negative); Occult Blood Urine UA NEGATIVE (Negative); Protein Urine UA NEGATIVE (Negative); Urobilinogen Urine UA 0.2 E.U./dL (0.2)
[2023-03-11 09:51] LABS: Bacteria Urine Few (2-10); RBC Urine 0-1/HPF (0-5/HPF); Squamous Epithelial Cell Urine 10-30 /HPF (0-5/HPF); WBC Urine 10-30/HPF (0-5/HPF)
[2023-03-11 09:52] LABS: Culture Indicated Urine Specimen Cultured
[2023-03-11 10:37] LABS: Hemoglobin 12.6 g/dL (12.0-16.0); Mean Corpuscular HGB Conc 33.2 % (30-36); Mean Corpuscular Hemoglobin 28.3 PG (26-34); Mean Corpuscular Volume 85.4 fL (80-100); Platelet Count 226 X10^3/uL (150-400); Red Blood Cell Count 4.44 X10^6/uL (4.0-5.2); Red Cell Distribution Width 14.3 % (11.6-14.8); White Blood Cell Count 5.6 X10^3/uL (4.5-11.0)
[2023-03-11 10:48] LABS: Alanine Aminotransferase 24 IU/L (<35); Albumin 3.9 g/dL (3.5-5.0); Albumin Globulin Ratio 1.4 (1.0-2.8); Alkaline Phosphatase 74 U/L (38-126); Aspartate Aminotransferase 28 IU/L (14-36); BUN Creatinine Ratio 28.6 (6-22); Bilirubin Total 0.4 mg/dL (0.2-1.3); Blood Urea Nitrogen 20 mg/dL (7-17); Calcium 9.6 mg/dL (8.4-10.2); Carbon Dioxide 25 mmol/L (22-32); Chloride 100 mmol/L (98-107); Cholesterol 216 mg/dL (140-199); Estimated Glomerular Filt Rate > 60 mL/min (>60); Globulin 2.7 g/dL (1.7-4.1); Glucose 87 mg/dL (80-110); HDL Cholesterol 87 mg/dL (40-60); HEMOLYSIS < 15 (0-50); LDL Cholesterol Calculated 119 mg/dL (<100); Potassium 4.2 mmol/L (3.4-5.1); Sodium 133 mmol/L (137-145); Total Protein 6.6 g/dL (6.3-8.2); Triglycerides 49 mg/dL (35-150)
[2023-03-11 10:52] LABS: High Sensitivity CRP - Cardiac 3.2 mg/L (1.0-3.0)
== END ==
PROVIDERS: Family Provider Family Medicine; PCP Family Medicine; Referring Provider Family Medicine; Visit Provider Family Medicine
DX: D35.00 Benign neoplasm of unspecified adrenal gland (principal); E78.5 Hyperlipidemia, unspecified; I10 Essential (primary) hypertension; R30.0 Dysuria
CPT/HCPCS: 36415; 80053; 80061; 81001; 85027; 86140; 87086

== ENCOUNTER → 2023-03-14 13:09 | Outpatient (CLI) | payer MEDICARE, OTHER, SELFPAY ==
[2022-12-21 08:34] VITALS: BMI 22.9
--- NOTE | 2023-03-14 13:10 | DI.US.S_ITS ---
PROCEDURE: US ABDOMEN LIMITED INDICATIONS: RUQ PAIN TECHNIQUE: Real-time scanning was performed of the abdominal and retroperitoneal organs, with image documentation. COMPARISON: None. FINDINGS: Liver: Liver is normal in size and homogeneous in echotexture. Gallbladder: No stones or sludge. Normal wall thickness of 9 mm. Biliary ducts: Intrahepatic bile ducts are non-dilated. Extrahepatic bile duct caliber measures 6 mm mm. Normal is 6-7 mm or less in diameter, or 10 mm or less post-cholecystectomy. Pancreas: Visualized portions of the pancreas are sonographically normal. Spleen: Spleen is normal in size and homogeneous in echotexture. Miscellaneous: No perihepatic fluid. IMPRESSION: Normal right upper quadrant ultrasound. No gallstones or sludge and no biliary ductal dilatation. Dictated by: Yoly Jenkins M.D. on 03/14/2023 at 16:53 Approved by: Yoly Jenkins M.D. on 03/14/2023 at 16:55
== END ==
PROVIDERS: Family Provider Family Medicine; PCP Family Medicine; Referring Provider Family Medicine; Visit Provider Family Medicine
DX: R10.11 Right upper quadrant pain (principal)
CPT/HCPCS: 76705

== ENCOUNTER → 2023-04-10 12:45 | Outpatient (CLI) | payer MEDICARE, OTHER, SELFPAY ==
[2022-12-21 08:34] VITALS: BMI 22.9
--- NOTE | 2023-04-10 | DI.MG.S_ITS ---
BILATERAL DIGITAL SCREENING MAMMOGRAM 3D/2D WITH CAD: 04/10/2023 CLINICAL: Routine screening. Comparison is made to exams dated: 03/17/2022 mammogram, 03/12/2021 mammogram, and 02/11/2020 mammogram - [facility]. Both breasts are heterogeneously dense, which may obscure small masses (category c / 51-75% glandular tissue). Current study was also evaluated with a Computer Aided Detection (CAD) system. There are benign post operative findings in both breasts. No significant masses, calcifications, or other findings are seen in either breast. IMPRESSION: BENIGN There is no mammographic evidence of malignancy. A 1 year screening mammogram is recommended. Based on the Tyrer Cuzick model (a risk assessment model) the patient's lifetime risk is 2.1% and her 10 year risk is 0.0%. According to the ACR, ACS, and NCCN guidelines, an annual breast MRI exam along with mammogram is recommended if the patient's lifetime risk is 20% or greater. This exam was interpreted at Station ID: [id number]. NOTE: For mammograms, a report in lay terms will be sent to the patient. Approximately 15% of breast malignancies will not be visualized mammographically. In the management of a palpable breast mass, a negative mammogram must not discourage biopsy of a clinically suspicious lesion. Electronically Signed By: Livia Davidson M.D., PH.D ryan/lenora:04/10/2023 18:47:12 letter sent: Normal Exam ACR BI-RADS Category 2: Benign Finding(s) 3342F
== END ==
PROVIDERS: Family Provider Family Medicine; PCP Family Medicine; Referring Provider Family Medicine; Visit Provider Family Medicine
DX: Z12.31 Encounter for screening mammogram for malignant neoplasm of breast (principal)
CPT/HCPCS: 77063; 77067

== ENCOUNTER 2023-04-17 09:45 | Outpatient (RCR) | payer MEDICARE, OTHER, SELFPAY ==
[2022-12-21 08:34] VITALS: BMI 22.9
--- NOTE | 2023-02-20 18:54 | PT.OIE ---
Current Diagnoses Stiffness of unspecified hip, not elsewhere classified (02/20/23) Muscle weakness (generalized) (02/20/23) Cystocele, unspecified (02/20/23) Acquired absence of both cervix and uterus (02/20/23) Past Medical History (Last Updated 07/01/22 @ 15:14 by Nehal Llanes DO) Abnormal Pap smear of cervix (1982) Adrenal adenoma Cervical radiculopathy (10/02/13) Cervical spine disease Chicken pox (1951) Chronic back pain Chronic headaches Colon polyps (03/04/15) 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) Family history of stroke Hyperlipidemia Hypertension (12/03/14) Lumbar spinal stenosis 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) Measles (1952) Mumps (1953) Osteopenia (2009) Shoulder pain (2010) Past Surgical History (Last Reviewed 05/11/19 @ 09:04 by Millie Yancey COO) Anesthesia History of colonoscopy with polypectomy (03/04/15) History of rectal surgery S/P total hip arthroplasty (09/11/17) Status post appendectomy Status post arthroscopy Status post cervical spinal fusion (10/2012) Status post colonoscopy (2008) Status post hysterectomy (1982) Status post lumbar laminectomy (01/24/17) Status post lumbar spine surgery for decompression of spinal cord (04/2012) Status post reduction mammoplasty Visit Care Team Role Provider Type Nehal Llanes DO Family Provider Physician Primary Care Provider Specialty: Medical Address: [address] [place] [address], [phone] Email: [email or web address] Ileana Ortiz MD Attending Provider Physician Referring Provider Specialty: SENIOR HEALTH CONSULTANT Address: [address] [place] [address], [id number] Email: [email or web address] Physical Therapy Initial Evaluation PT-OP-A Visit Information Start: 02/16/23 17:38 Freq: Status: Active Protocol: Document 02/20/23 09:40 LRN (Rec: 02/20/23 10:37 LRN [id number]) Out-Patient Physical Therapy Visit Information Visit Information Visit Type Initial Evaluation Visit Start Time 09:40 Visit Stop Time 10:27 Total Visit Minutes 47 Visit Number 1 Evaluation Information Evaluation Date 02/20/23 Precautions Precautions L/S x2 fusions and C/S x1 fusion, Hip replacements: R side- Posterior approach 4 yrs ago,L side-anterior approach Feb 2022. PT-OP-B Current Condition Start: 02/16/23 17:38 Freq: Status: Active Protocol: Document 02/20/23 09:40 LRN (Rec: 02/20/23 10:37 LRN [id number]) Current Condition History of Current Condition Onset Date 2 months ago. Current Complaints Feels it between her legs. Hard to empty bladder. History of Current Condition No pain, uncomfortable having a feeling between her legs and hard to empty bladder. Night time gets up 2-3 times a night, previously was getting up at least 1x/night. Options given was a surgery with a mesh or sealing the vagina. Dr. Ortiz retired this month and scheduled to see new OBG for measuring for pessary. Prior Treatments and Tests UTI 3 yrs ago, taking demanose since. Future Testing and Treatments Planned OBGYN appt 02/22/23 - pessary measuring. Developmental History Developmental History Vaginal childbirths x 2 w/o complications that she recalls . Possible tearing of perineum with first child but can't recall. At 36 yo had precancerous cells of the cervix w/hyste, ovaries remained. Has had 3 back surgeries: L/S x2 and C/S x1 (fusions), Hip replacements (R side-4 yrs ago ,L side- Feb 2022). Treatment Goals Patient/Caregiver Goals Pt goal is primarily to decrease feeling of bulge between the legs, decrease number of times urinating at nighttime, HEP. 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 PT-OP-C Subjective Start: 02/16/23 17:38 Freq: Status: Active Protocol: Document 02/20/23 09:40 LRN (Rec: 02/20/23 10:37 LRN [id number]) OP-PT Subjective Patient Comments Patient Comments Thought she had Bartholin cyst from looking on interntet but finding she has a prolapse has made her feel really aweful. Patient Questionnaires Pelvic Pain and Urgency/Frequency Patient Symptom Scale Pelvic Pain Score 6 PT-OP-I Pelvic Floor Start: 02/16/23 17:38 Freq: Status: Active Protocol: Document 02/20/23 09:40 LRN (Rec: 02/20/23 11:54 LRN [id number]) Pelvic Floor Assessment Urine Leaks Per Day 0 Bowel Bowel Symptoms Constipation Other Bowel Symptoms Sometimes constipation. Pelvic Clock Pelvic Clock Other Redness around the clock in Labia Minora and at vaginal opening. Prolapse Cystocele Grade 3 Prolapse Comments In supine: Bladder does not extend beyond the vaginal opening. Perineal Descent Resting Absent Contraction Ability Voluntary Contraction Weak Manual Muscle Testing Left 3 Manual Muscle Testing Right 0 Manual Muscle Testing Anterior 2 Manual Muscle Testing Posterior 3 Muscle Endurance (Seconds) 5 Number of Quick Contractions In 10 4 Seconds Comments Pelvic Floor Comments Pt is weak around 8-10 of the PF Clock with no lift felt on contraction. PT-OP-J Posture/Palpation/Skin Start: 02/16/23 17:38 Freq: Status: Active Protocol: Document 02/20/23 09:40 LRN (Rec: 02/20/23 11:54 LRN [id number]) Posture Evaluation Position Standing Head/C-Spine Posture Side Bent Left,C-Spine Flattened,Forward Head T-Spine Posture Flattened L-Spine Posture Flattened Scapula Posture (L) Winged,(R) Winged Pelvis Posture Anteriorly Tilted,(L) PSIS Posterior,(L) PSIS Inferior Weight Distribution Balanced Knee Posture (L) Excess Flexion,(R) Excess Flexion PT-OP-K Range of Motion Start: 02/16/23 17:38 Freq: Status: Active Protocol: Document 02/20/23 09:40 LRN (Rec: 02/20/23 10:37 LRN [id number]) Lumbar Spine Range of Motion Lumbar Spine Active Degrees Testing Position Standing Flexion 82 Extension 15 Rotation Left 20 Rotation Right 25 Lateral Flexion Left 5 Lateral Flexion Right 7 Comments Trunk AROM: Flexion is 82 deg ?s with 75 deg?s hip flexion, Trunk extension is 15 deg?s with 15 deg?s hip extension. Hip Goniometric Range of Motion Hip Right Passive Hip ROM WFL No Testing Position Supine Internal Rotation 50 External Rotation 60 Left Passive Hip ROM WFL No Testing Position Supine Internal Rotation 40 External Rotation 40 PT-OP-M Strength Start: 02/16/23 17:38 Freq: Status: Active Protocol: Document 02/20/23 09:40 LRN (Rec: 02/20/23 10:37 LRN [id number]) Trunk Strength Trunk Manual Muscle Testing Core Stabilization R hip flex - lost of trunk control Hip Strength Hip Manual Muscle Testing Right Flexion (L2) 5 Normal Extension (S1) 4+ Good+ Abduction 5 Normal Adduction 5 Normal External Rotation 5 Normal Internal Rotation 3 Fair Comments sit Left Flexion (L2) 5 Normal Extension (S1) 4+ Good+ Abduction 5 Normal Adduction 5 Normal External Rotation 5 Normal Internal Rotation 4+ Good+ Comments Not able to assess L hip AB due to pain in positioning; therefore strength tested in supine. PT-OP-Q Treatments Start: 02/16/23 17:38 Freq: Status: Active Protocol: Document 02/20/23 09:40 LRN (Rec: 02/20/23 10:37 LRN [id number]) Self-Care/Home Management Treatment Education Other Education Discussed results of evaluation, goals, and plan of care (POC). Pt agreeable to goals and POC. Pt educated in use of Bladder Diary and I/S in tracking for 1 week. Explained how to fill out diary and counting of urination times with discussion of tracking of bowels and bowel types. Activities Self-Care/Home Management Activities Issued & reviewed Bladder Diary for pt to complete with extra time taken for pt to track bowel types and the monitoring of bowels. I/S pt to continue with her current Kegel ex's at home. Recommended pt to hold recheck by OBGYN until she has had 4- 6 weeks of physical therapy. PT-OP-T Assessment and Plan Start: 02/16/23 17:38 Freq: Status: Active Protocol: Document 02/20/23 09:40 LRN (Rec: 02/20/23 10:37 LRN [id number]) Physical Therapy Assessment Rehab Potential Rehabilitation Potential Good Evaluation Complexity Number of Personal Factors/Comorbidities 3 or More Number of Body Systems Impaired 4 or More Clinical Presentation at Evaluation Evolving Impairments Impairments Activity Tolerance,Posture,ROM ,Strength,Transfers Goals Three Impairment Feeling of bladder pressure between knees as day progresses. Impairment PF strength: R lateral wall 0/5, L lateral wall & anterior 2/5, posterior 3/5. Short Term Goal (STG) Improve PF strength on R side to 3/5. STG Duration 03/31/23 (5 weeks) Correction Goal (LTG) Decrease feeling of bulge between the legs. LTG Duration 05/21/23 (12 weeks) Two Impairment Increased urinary voiding at nighttime. Impairment Nighttime voiding increased from 1-2/night to 2-3/night. Short Term Goal (STG) Pt will be educated in bladder retraining method. STG Duration 03/17/23 (3 weeks) Flight Crew Ordnanceman Goal (LTG) Decrease number of times urinating at nighttime from 2- 3x/night to 1-2x/night. LTG Duration 05/21/23 (12 weeks) One Impairment Pt lacks appropriate self care HEP Short Term Goal (STG) Pt will be educated in proper transfers, body mechanics to reduce core pressure. STG Duration 03/10/23 (2 weeks) Correction Goal (LTG) Pt will be independent in PF strengthening, hip ROM and and management of proper core pressure with current exercises. LTG Duration 05/21/23 (12 weeks) Assessment Summary Assessment Pt is a 77 yo female who presents with mild cystocele, and decreased vaginal canal depth, who is s/p hysterectomy . The pt does not have feeling of prolapse first thing in the morning but as day progresses. This morning the pt demonstrated a grade 3 cystocele but the bladder did not extend beyond her vaginal opening. Her Quick contractions are weak and sluggish and her long hold strength is 5 secs long before decrease in strength. PF strength of the R lateral wall is 0/5 (L side is 2/5). She shows decreased rosemarie hip ER, L hip IR mobility/strength (note : pt has R posterior BONG, L anterior BONG) and decreased hip extension mobility/ strength. Additionally, the pt has decreased trunk and core stability; therefore the pt will benefit from skilled physical therapy for PF strengthening, reduction of cystocele with pt's goal of avoiding the use of pessary or surgical lift of bladder. Physical Therapy Plan Frequency and Duration Frequency of Treatment 1x/Week Duration of treatment (weeks) 12 Plan of Care Start Date 02/20/23 Plan of Care End Date 05/21/23 Therapeutic Interventions Therapeutic Interventions Home Exercise Program,Joint Mobilizations,Manual Therapy, Neuromuscular Re-education, Self-Care/Home Management,Soft Tissue Mobilization, Therapeutic Activities, Therapeutic Exercises Modalities Cold Pack/Ice Massage,Electric Stimulation,Hot Packs Next Visit Focus/Plan Next Note Type Treatment Note Next Visit Plan Review bladder diary and discuss fluid management, discuss foods, and water intake Training/Ex: Kegel without use of substitute muscles - PF strengthening of R lateral wall > L lateral wall. Improve hip mobility ( rosemarie hip ER, L hip IR mobility/ strength), hip extension mobility/strength, if needed pt education in bladder retraining to minimize times of nighttime voiding. Deep breathing and start LE roll in /out ex when appropriate. Transfer training: reduction of intra-abdominal pressure with transfers and body mechanics. PF/core/hip strengthening, STM: improve abdominal soft tissue (bladder) mobility
--- NOTE | 2023-02-20 18:54 | PT.OPPOC ---
Physical, Occupational & Speech Therapy At Current Diagnoses Stiffness of unspecified hip, not elsewhere classified (02/20/23) Muscle weakness (generalized) (02/20/23) Cystocele, unspecified (02/20/23) Acquired absence of both cervix and uterus (02/20/23) Visit Care Team Role Provider Type Nehal Llanes DO Family Provider Physician Primary Care Provider Specialty: Medical Address: [address] [place] [address], [id number] Email: [email or web address] Ileana Ortiz MD Attending Provider Physician Referring Provider Specialty: JEWEL BEARING MAKER Address: [address] [place] [address], [address] Email: [email or web address] Plan Of Care PT-OP-T Assessment and Plan Start: 02/16/23 17:38 Freq: Status: Active Protocol: Document 02/20/23 09:40 LRN (Rec: 02/20/23 10:37 LRN [id number]) Physical Therapy Assessment Rehab Potential Rehabilitation Potential Good Evaluation Complexity Number of Personal Factors/Comorbidities 3 or More Number of Body Systems Impaired 4 or More Clinical Presentation at Evaluation Evolving Impairments Impairments Activity Tolerance,Posture,ROM ,Strength,Transfers Goals Three Impairment Feeling of bladder pressure between knees as day progresses. Impairment PF strength: R lateral wall 0/5, L lateral wall & anterior 2/5, posterior 3/5. Short Term Goal (STG) Improve PF strength on R side to 3/5. STG Duration 03/31/23 (5 weeks) Shelter Goal (LTG) Decrease feeling of bulge between the legs. LTG Duration 05/21/23 (12 weeks) Two Impairment Increased urinary voiding at nighttime. Impairment Nighttime voiding increased from 1-2/night to 2-3/night. Short Term Goal (STG) Pt will be educated in bladder retraining method. STG Duration 03/17/23 (3 weeks) Shelter Goal (LTG) Decrease number of times urinating at nighttime from 2- 3x/night to 1-2x/night. LTG Duration 05/21/23 (12 weeks) One Impairment Pt lacks appropriate self care HEP Short Term Goal (STG) Pt will be educated in proper transfers, body mechanics to reduce core pressure. STG Duration 03/10/23 (2 weeks) Rackman Goal (LTG) Pt will be independent in PF strengthening, hip ROM and and management of proper core pressure with current exercises. LTG Duration 05/21/23 (12 weeks) Assessment Summary Assessment Pt is a 77 yo female who presents with mild cystocele, and decreased vaginal canal depth, who is s/p hysterectomy . The pt does not have feeling of prolapse first thing in the morning but as day progresses. This morning the pt demonstrated a grade 3 cystocele but the bladder did not extend beyond her vaginal opening. Her Quick contractions are weak and sluggish and her long hold strength is 5 secs long before decrease in strength. PF strength of the R lateral wall is 0/5 (L side is 2/5). She shows decreased rosemarie hip ER, L hip IR mobility/strength (note : pt has R posterior BONG, L anterior BONG) and decreased hip extension mobility/ strength. Additionally, the pt has decreased trunk and core stability; therefore the pt will benefit from skilled physical therapy for PF strengthening, reduction of cystocele with pt's goal of avoiding the use of pessary or surgical lift of bladder. Physical Therapy Plan Frequency and Duration Frequency of Treatment 1x/Week Duration of treatment (weeks) 12 Plan of Care Start Date 02/20/23 Plan of Care End Date 05/21/23 Therapeutic Interventions Therapeutic Interventions Home Exercise Program,Joint Mobilizations,Manual Therapy, Neuromuscular Re-education, Self-Care/Home Management,Soft Tissue Mobilization, Therapeutic Activities, Therapeutic Exercises Modalities Cold Pack/Ice Massage,Electric Stimulation,Hot Packs Next Visit Focus/Plan Next Note Type Treatment Note Next Visit Plan Review bladder diary and discuss fluid management, discuss foods, and water intake Training/Ex: Kegel without use of substitute muscles - PF strengthening of R lateral wall > L lateral wall. Improve hip mobility ( rosemarie hip ER, L hip IR mobility/ strength), hip extension mobility/strength, if needed pt education in bladder retraining to minimize times of nighttime voiding. Deep breathing and start LE roll in /out ex when appropriate. Transfer training: reduction of intra-abdominal pressure with transfers and body mechanics. PF/core/hip strengthening, STM: improve abdominal soft tissue (bladder) mobility Plan of Care Dates Plan of Care Start Date 02/20/23 Plan of Care End Date 05/21/23 Electronically Signed by: Falguni Michel, PT 02/20/23 0035 If you are in agreement with this Plan of Care, please return a signed and dated copy. I have reviewed this Plan of Care and certify that the skilled therapy services above are required to meet the patient?s needs. Physician Signature Date Printed Name and Credentials Clinical Instructor Signature Printed Name and Credentials
--- NOTE | 2023-03-02 10:41 | PT.OTN ---
Current Diagnoses Stiffness of unspecified hip, not elsewhere classified (03/02/23) Muscle weakness (generalized) (03/02/23) Cystocele, unspecified (03/02/23) Acquired absence of both cervix and uterus (03/02/23) Physical Therapy Treatment Note PT-OP-A Visit Information Start: 02/16/23 17:38 Freq: Status: Active Protocol: Document 03/02/23 08:01 LRN (Rec: 03/02/23 10:40 LRN [id number]) Out-Patient Physical Therapy Visit Information Visit Information Visit Type Treatment Note Visit Start Time 09:37 Visit Stop Time 10:18 Total Visit Minutes 41 Visit Number 2 Evaluation Information Evaluation Date 02/20/23 Precautions Precautions L/S x2 fusions and C/S x1 fusion, Hip replacements: R side- Posterior approach 4 yrs ago,L side-anterior approach Feb 2022. PT-OP-B Current Condition Start: 02/16/23 17:38 Freq: Status: Active Protocol: Document 02/20/23 09:40 LRN (Rec: 02/20/23 10:37 LRN [id number]) Current Condition History of Current Condition Onset Date 2 months ago. Current Complaints Feels it between her legs. Hard to empty bladder. History of Current Condition No pain, uncomfortable having a feeling between her legs and hard to empty bladder. Night time gets up 2-3 times a night, previously was getting up at least 1x/night. Options given was a surgery with a mesh or sealing the vagina. Dr. Ortiz retired this month and scheduled to see new OBG for measuring for pessary. Prior Treatments and Tests UTI 3 yrs ago, taking demanose since. Future Testing and Treatments Planned OBGYN appt 02/22/23 - pessary measuring. Developmental History Developmental History Vaginal childbirths x 2 w/o complications that she recalls . Possible tearing of perineum with first child but can't recall. At 36 yo had precancerous cells of the cervix w/hyste, ovaries remained. Has had 3 back surgeries: L/S x2 and C/S x1 (fusions), Hip replacements (R side-4 yrs ago ,L side- Feb 2022). Treatment Goals Patient/Caregiver Goals Pt goal is primarily to decrease feeling of bulge between the legs, decrease number of times urinating at nighttime, HEP. 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 PT-OP-C Subjective Start: 02/16/23 17:38 Freq: Status: Active Protocol: Document 03/02/23 08:01 LRN (Rec: 03/02/23 10:40 LRN [id number]) OP-PT Subjective Patient Comments Patient Comments Did bladder diary. Left handouts issued last session, so didn't have exercises. PT-OP-I Pelvic Floor Start: 02/16/23 17:38 Freq: Status: Active Protocol: Document 02/20/23 09:40 LRN (Rec: 02/20/23 11:54 LRN [id number]) Pelvic Floor Assessment Urine Leaks Per Day 0 Bowel Bowel Symptoms Constipation Other Bowel Symptoms Sometimes constipation. Pelvic Clock Pelvic Clock Other Redness around the clock in [place] and at vaginal opening. Prolapse Cystocele Grade 3 Prolapse Comments In supine: Bladder does not extend beyond the vaginal opening. Perineal Descent Resting Absent Contraction Ability Voluntary Contraction Weak Manual Muscle Testing Left 3 Manual Muscle Testing Right 0 Manual Muscle Testing Anterior 2 Manual Muscle Testing Posterior 3 Muscle Endurance (Seconds) 5 Number of Quick Contractions In 10 4 Seconds Comments Pelvic Floor Comments Pt is weak around 8-10 of the PF Clock with no lift felt on contraction. PT-OP-J Posture/Palpation/Skin Start: 02/16/23 17:38 Freq: Status: Active Protocol: Document 02/20/23 09:40 LRN (Rec: 02/20/23 11:54 LRN [id number]) Posture Evaluation Position Standing Head/C-Spine Posture Side Bent Left,C-Spine Flattened,Forward Head T-Spine Posture Flattened L-Spine Posture Flattened Scapula Posture (L) Winged,(R) Winged Pelvis Posture Anteriorly Tilted,(L) PSIS Posterior,(L) PSIS Inferior Weight Distribution Balanced Knee Posture (L) Excess Flexion,(R) Excess Flexion PT-OP-K Range of Motion Start: 02/16/23 17:38 Freq: Status: Active Protocol: Document 02/20/23 09:40 LRN (Rec: 02/20/23 10:37 LRN [id number]) Lumbar Spine Range of Motion Lumbar Spine Active Degrees Testing Position Standing Flexion 82 Extension 15 Rotation Left 20 Rotation Right 25 Lateral Flexion Left 5 Lateral Flexion Right 7 Comments Trunk AROM: Flexion is 82 deg ?s with 75 deg?s hip flexion, Trunk extension is 15 deg?s with 15 deg?s hip extension. Hip Goniometric Range of Motion Hip Right Passive Hip ROM WFL No Testing Position Supine Internal Rotation 50 External Rotation 60 Left Passive Hip ROM WFL No Testing Position Supine Internal Rotation 40 External Rotation 40 PT-OP-M Strength Start: 02/16/23 17:38 Freq: Status: Active Protocol: Document 02/20/23 09:40 LRN (Rec: 02/20/23 10:37 LRN [id number]) Trunk Strength Trunk Manual Muscle Testing Core Stabilization R hip flex - lost of trunk control Hip Strength Hip Manual Muscle Testing Right Flexion (L2) 5 Normal Extension (S1) 4+ Good+ Abduction 5 Normal Adduction 5 Normal External Rotation 5 Normal Internal Rotation 3 Fair Comments sit Left Flexion (L2) 5 Normal Extension (S1) 4+ Good+ Abduction 5 Normal Adduction 5 Normal External Rotation 5 Normal Internal Rotation 4+ Good+ Comments Not able to assess L hip AB due to pain in positioning; therefore strength tested in supine. PT-OP-Q Treatments Start: 02/16/23 17:38 Freq: Status: Active Protocol: Document 03/02/23 08:01 LRN (Rec: 03/02/23 10:40 LRN [id number]) Therapeutic Exercises Supine Exercises Deep Breathing Supine Exercise Name Deep Breathing - 6 sec in/out Equipment Used Mirror & Self assess with hand on chest & belly Reps/Minutes 10' Comments Cuing for belly mvmt and reduction of chest mvmt. Long hold contraction Supine Exercise Name Wedge, Kegel without use of substitute muscles Equipment Used Wedge Reps/Minutes 3' Comments Cuing for holding with breathing (3 breaths) Quick contractions Supine Exercise Name Wedge, Kegel without use of substitute muscles Equipment Used Wedge Reps/Minutes 3' Comments Cuing for timeing of 1 contract/2 relax Self-Care/Home Management Treatment Education Other Education Reviewed bladder diary and discussed at length pelvic anataomy, discussed bowel/ bladder anatomy, fluid management, increase fiber foods, and water intake and norm for hydration. Recommended pt talk to her director energy regarding use of magnesium patch to improve bowel movements. Activities Self-Care/Home Management Activities Issued & reviewed Handouts for Kegels and deep breathing. PT-OP-T Assessment and Plan Start: 02/16/23 17:38 Freq: Status: Active Protocol: Document 03/02/23 08:01 LRN (Rec: 03/02/23 10:40 LRN [id number]) Physical Therapy Assessment Goals Three Impairment Feeling of bladder pressure between knees as day progresses. Impairment PF strength: R lateral wall 0/5, L lateral wall & anterior 2/5, posterior 3/5. Short Term Goal (STG) Improve PF strength on R side to 3/5. STG Duration 03/31/23 (5 weeks) Hide Stretcher Hand Goal (LTG) Decrease feeling of bulge between the legs. LTG Duration 05/21/23 (12 weeks) Two Impairment Increased urinary voiding at nighttime. Impairment Nighttime voiding increased from 1-2/night to 2-3/night. Short Term Goal (STG) Pt will be educated in bladder retraining method. STG Duration 03/17/23 (3 weeks) Half-Way Goal (LTG) Decrease number of times urinating at nighttime from 2- 3x/night to 1-2x/night. LTG Duration 05/21/23 (12 weeks) One Impairment Pt lacks appropriate self care HEP Short Term Goal (STG) Pt will be educated in proper transfers, body mechanics to reduce core pressure. STG Duration 03/10/23 (2 weeks) Half-Way Goal (LTG) Pt will be independent in PF strengthening, hip ROM and and management of proper core pressure with current exercises. 03/02/23: HEP: Pillow under hips/Kegels in isolation of substitute ms and w/breathing (3 breaths). LTG Duration 05/21/23 (12 weeks) progressed 03/02/23 Assessment Summary Assessment Pt who presented with mild cystocele, and decreased vaginal canal depth, who is s/ p hysterectomy and feeling of prolapse as day progresses. Per bladder diary, pt has poor hydration numbers and lacks fiber in diet even with METAMUCIL. She has mainly type 2 stools and stometimes type 4. She demonstrates poor pressure management and diffculty isolation a PF from substitute ms with exercise; therefore further training is needed. Physical Therapy Plan Frequency and Duration Frequency of Treatment 1x/Week Duration of treatment (weeks) 12 Plan of Care Start Date 02/20/23 Plan of Care End Date 05/21/23 Next Visit Focus/Plan Next Note Type Treatment Note Next Visit Plan Review 2nd bladder diary tracking for increased fiber/ fruits, improved bowel types, increased fluid (if closer to 1/2 body wt in ozs), and voiding/trickling secs. Cont Training/Ex: Kegel without use of substitute muscles and breathing through ex. Start LE roll in/outs when coordinated with contraction/ breathing. Progress towards focus on strengthening PF: R lateral wall > L lateral wall. Improve hip mobility ( rosemarie hip ER, L hip IR mobility/ strength), hip extension mobility/strength, if needed pt education in bladder retraining to minimize times of nighttime voiding. Transfer training: reduction of intra-abdominal pressure with transfers and body mechanics. PF/core/hip strengthening, STM: improve abdominal soft tissue (bladder) mobility.
--- NOTE | 2023-03-16 16:24 | PT.OTN ---
Current Diagnoses Stiffness of unspecified hip, not elsewhere classified (03/16/23) Muscle weakness (generalized) (03/16/23) Cystocele, unspecified (03/16/23) Acquired absence of both cervix and uterus (03/16/23) Physical Therapy Treatment Note PT-OP-A Visit Information Start: 02/16/23 17:38 Freq: Status: Active Protocol: Document 03/16/23 15:05 LRN (Rec: 03/16/23 16:24 LRN [id number]) Out-Patient Physical Therapy Visit Information Visit Information Visit Type Treatment Note Visit Start Time 15:06 Visit Stop Time 16:00 Total Visit Minutes 54 Visit Number 3 Evaluation Information Evaluation Date 02/20/23 Precautions Precautions L/S x2 fusions and C/S x1 fusion, Hip replacements: R side- Posterior approach 4 yrs ago,L side-anterior approach Feb 2022. PT-OP-B Current Condition Start: 02/16/23 17:38 Freq: Status: Active Protocol: Document 02/20/23 09:40 LRN (Rec: 02/20/23 10:37 LRN [id number]) Current Condition History of Current Condition Onset Date 2 months ago. Current Complaints Feels it between her legs. Hard to empty bladder. History of Current Condition No pain, uncomfortable having a feeling between her legs and hard to empty bladder. Night time gets up 2-3 times a night, previously was getting up at least 1x/night. Options given was a surgery with a mesh or sealing the vagina. Dr. Ortiz retired this month and scheduled to see new OBG for measuring for pessary. Prior Treatments and Tests UTI 3 yrs ago, taking demanose since. Future Testing and Treatments Planned OBGYN appt 02/22/23 - pessary measuring. Developmental History Developmental History Vaginal childbirths x 2 w/o complications that she recalls . Possible tearing of perineum with first child but can't recall. At 36 yo had precancerous cells of the cervix w/hyste, ovaries remained. Has had 3 back surgeries: L/S x2 and C/S x1 (fusions), Hip replacements (R side-4 yrs ago ,L side- Feb 2022). Treatment Goals Patient/Caregiver Goals Pt goal is primarily to decrease feeling of bulge between the legs, decrease number of times urinating at nighttime, HEP. Personal Factors Other Personal Factors That May Effect Lumbar and cervical fusions, Therapy/Recovery hip BONG (R brilliandeer lopper, L anter), Osteopenia, controlled HBP by meds. PT-OP-C Subjective Start: 02/16/23 17:38 Freq: Status: Active Protocol: Document 03/16/23 15:05 LRN (Rec: 03/16/23 16:24 LRN [id number]) OP-PT Subjective Patient Comments Patient Comments Lumps outside is getting larger and is urinating all the time. Now has raised toilet seat because her toilet is so low, and that has helped. Has noticed over the last week the tailbone pressure ache bothers her but not at night. PT-OP-I Pelvic Floor Start: 02/16/23 17:38 Freq: Status: Active Protocol: Document 02/20/23 09:40 LRN (Rec: 02/20/23 11:54 LRN [id number]) Pelvic Floor Assessment Urine Leaks Per Day 0 Bowel Bowel Symptoms Constipation Other Bowel Symptoms Sometimes constipation. Pelvic Clock Pelvic Clock Other Redness around the clock in [place] and at vaginal opening. Prolapse Cystocele Grade 3 Prolapse Comments In supine: Bladder does not extend beyond the vaginal opening. Perineal Descent Resting Absent Contraction Ability Voluntary Contraction Weak Manual Muscle Testing Left 3 Manual Muscle Testing Right 0 Manual Muscle Testing Anterior 2 Manual Muscle Testing Posterior 3 Muscle Endurance (Seconds) 5 Number of Quick Contractions In 10 4 Seconds Comments Pelvic Floor Comments Pt is weak around 8-10 of the PF Clock with no lift felt on contraction. PT-OP-J Posture/Palpation/Skin Start: 02/16/23 17:38 Freq: Status: Active Protocol: Document 02/20/23 09:40 LRN (Rec: 02/20/23 11:54 LRN [id number]) Posture Evaluation Position Standing Head/C-Spine Posture Side Bent Left,C-Spine Flattened,Forward Head T-Spine Posture Flattened L-Spine Posture Flattened Scapula Posture (L) Winged,(R) Winged Pelvis Posture Anteriorly Tilted,(L) PSIS Posterior,(L) PSIS Inferior Weight Distribution Balanced Knee Posture (L) Excess Flexion,(R) Excess Flexion PT-OP-K Range of Motion Start: 02/16/23 17:38 Freq: Status: Active Protocol: Document 02/20/23 09:40 LRN (Rec: 02/20/23 10:37 LRN [id number]) Lumbar Spine Range of Motion Lumbar Spine Active Degrees Testing Position Standing Flexion 82 Extension 15 Rotation Left 20 Rotation Right 25 Lateral Flexion Left 5 Lateral Flexion Right 7 Comments Trunk AROM: Flexion is 82 deg ?s with 75 deg?s hip flexion, Trunk extension is 15 deg?s with 15 deg?s hip extension. Hip Goniometric Range of Motion Hip Right Passive Hip ROM WFL No Testing Position Supine Internal Rotation 50 External Rotation 60 Left Passive Hip ROM WFL No Testing Position Supine Internal Rotation 40 External Rotation 40 PT-OP-M Strength Start: 02/16/23 17:38 Freq: Status: Active Protocol: Document 02/20/23 09:40 LRN (Rec: 02/20/23 10:37 LRN [id number]) Trunk Strength Trunk Manual Muscle Testing Core Stabilization R hip flex - lost of trunk control Hip Strength Hip Manual Muscle Testing Right Flexion (L2) 5 Normal Extension (S1) 4+ Good+ Abduction 5 Normal Adduction 5 Normal External Rotation 5 Normal Internal Rotation 3 Fair Comments sit Left Flexion (L2) 5 Normal Extension (S1) 4+ Good+ Abduction 5 Normal Adduction 5 Normal External Rotation 5 Normal Internal Rotation 4+ Good+ Comments Not able to assess L hip AB due to pain in positioning; therefore strength tested in supine. PT-OP-Q Treatments Start: 02/16/23 17:38 Freq: Status: Active Protocol: Document 03/16/23 15:05 LRN (Rec: 03/16/23 16:24 LRN [id number]) Therapeutic Exercises Supine Exercises Bowel massage Supine Exercise Name See manual treatment Other Exercises Transfer sit<>sup coord w/PF/breath Other Exercise Name Coordination training of transfers w/breath & PF >< Reps/Minutes 3x Comments Phys & v cuing for mvmt with breathe & v cues for PF tightening. Manual Therapy Treatment Soft Tissue Mobilization Abdomen Body Location Bladder lift, appendix scar mob, abdomen in area of urachus. Mobilization Type Myofascial Release Intensity/Depth Moderate Body Position Supine Bowel massage Body Location Bowel massage x 2, pt self massage x 5 Intensity/Depth Moderate to superficial Body Position Hooklying Comments Legs on bolster. Pt needed cuing to not press with fingertips and to avoid pain on R side. Self-Care/Home Management Treatment Education Patient Education Home Exercise Program Other Education Reviewed and discussed bladder diary of BM's 1x/day at 4am, and possible reason for runny stool with BM. Discussed body response after type 2 BM ( more liquid stool immediately after). Discussed at breathing with ex and coordination of PF contraction with breathing when PF is pushing out more. Discussed bowel program handout. Briefly discussed LE roll in/ out ex. Pt to read but hold on exercise. Activities Self-Care/Home Management Activities Issued & reviewed Bowel Stimulation Massage. Issued & reviewed bowel program. Issued LE roll in/out ex. PT-OP-T Assessment and Plan Start: 02/16/23 17:38 Freq: Status: Active Protocol: Document 03/16/23 15:05 LRN (Rec: 03/16/23 16:24 LRN [id number]) Physical Therapy Assessment Goals Three Impairment Feeling of bladder pressure between knees as day progresses. Impairment PF strength: R lateral wall 0/5, L lateral wall & anterior 2/5, posterior 3/5. Short Term Goal (STG) Improve PF strength on R side to 3/5. STG Duration 03/31/23 (5 weeks) Custodial Goal (LTG) Decrease feeling of bulge between the legs. 03/16/23: Noted worsening. LTG Duration 05/21/23 (12 weeks) (: Worse) Two Impairment Increased urinary voiding at nighttime. Impairment Nighttime voiding increased from 1-2/night to 2-3/night. Short Term Goal (STG) Pt will be educated in bladder retraining method. STG Duration 03/17/23 (3 weeks) Manager Provider Relations Goal (LTG) Decrease number of times urinating at nighttime from 2- 3x/night to 1-2x/night. LTG Duration 05/21/23 (12 weeks) One Impairment Pt lacks appropriate self care HEP Short Term Goal (STG) Pt will be educated in proper transfers, body mechanics to reduce core pressure. 03/16/23: Pt educated in log roll transfer sit<>supine with coordination of breathing/PF >< STG Duration 03/10/23 (2 weeks) progressed 03/16/23 (need ed sit<>stand & body mech) Manager Provider Relations Goal (LTG) Pt will be independent in PF strengthening, hip ROM and and management of proper core pressure with current exercises. 03/02/23: HEP: Pillow under hips/Kegels in isolation of substitute ms and w/breathing (3 breaths). LTG Duration 05/21/23 (12 weeks) progressed 03/02/23 Assessment Summary Assessment Pt is having type 2, f/b type 4 BM first in the morning, probably due to decreased fluid intake (~41-32 oz). She uses decaf/caf drink to help initiate BM in AM. Pt frustrated that she is urinating more due to hydrating more. Use of toilet raiser seems to be allowing for ease with urination especially at nighttime; probably from improved posture on toilet (not leaning into abdomen). 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 She is not tender under R ribcage today although pt has in the past had sharp pains in that area (gall bladder). No Uterus, but bladder mob made pt feel like urinating, probably due to bladder not being empty. Physical Therapy Plan Frequency and Duration Frequency of Treatment 1x/Week Duration of treatment (weeks) 12 Plan of Care Start Date 02/20/23 Plan of Care End Date 05/21/23 Next Visit Focus/Plan Next Note Type Treatment Note Next Visit Plan Next: Transfer training: reduction of intra-abdominal pressure with transfers and body mechanics. Cont Training/Ex: Kegel without use of substitute muscles and breathing through ex. Start LE roll in/outs when coordinated with contraction/ breathing. Progress towards focus on strengthening PF: R lateral wall > L lateral wall. Improve hip mobility ( rosemarie hip ER, L hip IR mobility/ strength), hip extension mobility/strength, if needed pt education in bladder retraining to minimize times of nighttime voiding. PF/core/hip strengthening, STM: improve abdominal soft tissue (bladder) mobility.
--- NOTE | 2023-03-20 11:13 | PT.OTN ---
Current Diagnoses Stiffness of unspecified hip, not elsewhere classified (03/20/23) Muscle weakness (generalized) (03/20/23) Cystocele, unspecified (03/20/23) Acquired absence of both cervix and uterus (03/20/23) Physical Therapy Treatment Note PT-OP-A Visit Information Start: 02/16/23 17:38 Freq: Status: Active Protocol: Document 03/20/23 08:51 LRN (Rec: 03/20/23 09:36 LRN [id number]) Out-Patient Physical Therapy Visit Information Visit Information Visit Type Treatment Note Visit Start Time 08:51 Visit Stop Time 09:35 Total Visit Minutes 44 Visit Number 4 Evaluation Information Evaluation Date 02/20/23 Precautions Precautions L/S x2 fusions and C/S x1 fusion, Hip replacements: R side- Posterior approach 4 yrs ago,L side-anterior approach Feb 2022. PT-OP-B Current Condition Start: 02/16/23 17:38 Freq: Status: Active Protocol: Document 02/20/23 09:40 LRN (Rec: 02/20/23 10:37 LRN [id number]) Current Condition History of Current Condition Onset Date 2 months ago. Current Complaints Feels it between her legs. Hard to empty bladder. History of Current Condition No pain, uncomfortable having a feeling between her legs and hard to empty bladder. Night time gets up 2-3 times a night, previously was getting up at least 1x/night. Options given was a surgery with a mesh or sealing the vagina. Dr. Ortiz retired this month and scheduled to see new OBG for measuring for pessary. Prior Treatments and Tests UTI 3 yrs ago, taking demanose since. Future Testing and Treatments Planned OBGYN appt 02/22/23 - pessary measuring. Developmental History Developmental History Vaginal childbirths x 2 w/o complications that she recalls . Possible tearing of perineum with first child but can't recall. At 36 yo had precancerous cells of the cervix w/hyste, ovaries remained. Has had 3 back surgeries: L/S x2 and C/S x1 (fusions), Hip replacements (R side-4 yrs ago ,L side- Feb 2022). Treatment Goals Patient/Caregiver Goals Pt goal is primarily to decrease feeling of bulge between the legs, decrease number of times urinating at nighttime, HEP. Personal Factors Other Personal Factors That May Effect Lumbar and cervical fusions, Therapy/Recovery hip BONG (R bilingual executive assistant, L anter), Osteopenia, controlled HBP by meds. PT-OP-C Subjective Start: 02/16/23 17:38 Freq: Status: Active Protocol: Document 03/20/23 08:51 LRN (Rec: 03/20/23 09:36 LRN [id number]) OP-PT Subjective Patient Comments Patient Comments Wgt is 129#. Less runny stool with intake of fiber. PT-OP-I Pelvic Floor Start: 02/16/23 17:38 Freq: Status: Active Protocol: Document 02/20/23 09:40 LRN (Rec: 02/20/23 11:54 LRN [id number]) Pelvic Floor Assessment Urine Leaks Per Day 0 Bowel Bowel Symptoms Constipation Other Bowel Symptoms Sometimes constipation. Pelvic Clock Pelvic Clock Other Redness around the clock in [place] and at vaginal opening. Prolapse Cystocele Grade 3 Prolapse Comments In supine: Bladder does not extend beyond the vaginal opening. Perineal Descent Resting Absent Contraction Ability Voluntary Contraction Weak Manual Muscle Testing Left 3 Manual Muscle Testing Right 0 Manual Muscle Testing Anterior 2 Manual Muscle Testing Posterior 3 Muscle Endurance (Seconds) 5 Number of Quick Contractions In 10 4 Seconds Comments Pelvic Floor Comments Pt is weak around 8-10 of the PF Clock with no lift felt on contraction. PT-OP-J Posture/Palpation/Skin Start: 02/16/23 17:38 Freq: Status: Active Protocol: Document 02/20/23 09:40 LRN (Rec: 02/20/23 11:54 LRN [id number]) Posture Evaluation Position Standing Head/C-Spine Posture Side Bent Left,C-Spine Flattened,Forward Head T-Spine Posture Flattened L-Spine Posture Flattened Scapula Posture (L) Winged,(R) Winged Pelvis Posture Anteriorly Tilted,(L) PSIS Posterior,(L) PSIS Inferior Weight Distribution Balanced Knee Posture (L) Excess Flexion,(R) Excess Flexion PT-OP-K Range of Motion Start: 02/16/23 17:38 Freq: Status: Active Protocol: Document 02/20/23 09:40 LRN (Rec: 02/20/23 10:37 LRN [id number]) Lumbar Spine Range of Motion Lumbar Spine Active Degrees Testing Position Standing Flexion 82 Extension 15 Rotation Left 20 Rotation Right 25 Lateral Flexion Left 5 Lateral Flexion Right 7 Comments Trunk AROM: Flexion is 82 deg ?s with 75 deg?s hip flexion, Trunk extension is 15 deg?s with 15 deg?s hip extension. Hip Goniometric Range of Motion Hip Right Passive Hip ROM WFL No Testing Position Supine Internal Rotation 50 External Rotation 60 Left Passive Hip ROM WFL No Testing Position Supine Internal Rotation 40 External Rotation 40 PT-OP-M Strength Start: 02/16/23 17:38 Freq: Status: Active Protocol: Document 02/20/23 09:40 LRN (Rec: 02/20/23 10:37 LRN [id number]) Trunk Strength Trunk Manual Muscle Testing Core Stabilization R hip flex - lost of trunk control Hip Strength Hip Manual Muscle Testing Right Flexion (L2) 5 Normal Extension (S1) 4+ Good+ Abduction 5 Normal Adduction 5 Normal External Rotation 5 Normal Internal Rotation 3 Fair Comments sit Left Flexion (L2) 5 Normal Extension (S1) 4+ Good+ Abduction 5 Normal Adduction 5 Normal External Rotation 5 Normal Internal Rotation 4+ Good+ Comments Not able to assess L hip AB due to pain in positioning; therefore strength tested in supine. PT-OP-Q Treatments Start: 02/16/23 17:38 Freq: Status: Active Protocol: Document 03/20/23 08:51 LRN (Rec: 03/20/23 09:36 LRN [id number]) Therapeutic Exercises Supine Exercises Deep Breathing Supine Exercise Name Deep Breathing - 6 sec in/out Equipment Used Self assess with hand on chest & belly Reps/Minutes 4' Comments Cuing for belly mvmt and reduction of chest mvmt. Sidelying Exercises PF/hip AD Sidelying Exercise Name PF/hip AD - opp foot behind lift leg Side right Reps/Minutes 10 quick and a 10 SH with lifts x 2 right and x1 left. Comments Pt cued for normal breath with lifts. Standing Exercises PF/Hamstring stretch position Standing Exercise Name PF></Hamstring stretch position Reps/Minutes 6x Long hold and quick contractions Other Exercises Transfer sit<>stand coord w/PF/breath Other Exercise Name Coordination training of transfer w/breath & PF >< Reps/Minutes 10x Comments Phys & v cuing for mvmt of breathe & v cues for breathwork. Transfer sit<>sup coord w/PF/breath Other Exercise Name Coordination training of transfers w/breath & PF >< Reps/Minutes 10x Comments Phys & v cuing for mvmt of breathe & v cues for PF tightening. Self-Care/Home Management Treatment Education Patient Education Body Mechanics,Home Exercise Program Other Education Educated pt in mechanics of reduction of intra-abdominal pressure with use of breathwork, and coordination of breath with transfers and body mechanics. Activities Self-Care/Home Management Activities Issued & reviewed HEP: Deep breathing, PF w/hip AD (side & standing), LE roll in/out with I/S to ignore ball/band but work on coordination of mvmt w/breath and then with PF , and standing Hamstring stretch with PF contraction. PT-OP-T Assessment and Plan Start: 02/16/23 17:38 Freq: Status: Active Protocol: Document 03/20/23 08:51 LRN (Rec: 03/20/23 09:36 LRN [id number]) Physical Therapy Assessment Goals Three Impairment Feeling of bladder pressure between knees as day progresses. Impairment PF strength: R lateral wall 0/5, L lateral wall & anterior 2/5, posterior 3/5. Short Term Goal (STG) Improve PF strength on R side to 3/5. STG Duration 03/31/23 (5 weeks) Half-Way Goal (LTG) Decrease feeling of bulge between the legs. 03/16/23: Noted worsening. LTG Duration 05/21/23 (12 weeks) (: Worse) Two Impairment Increased urinary voiding at nighttime. Impairment Nighttime voiding increased from 1-2/night to 2-3/night. Short Term Goal (STG) Pt will be educated in bladder retraining method. STG Duration 03/17/23 (3 weeks) Career Services Director Goal (LTG) Decrease number of times urinating at nighttime from 2- 3x/night to 1-2x/night. LTG Duration 05/21/23 (12 weeks) One Impairment Pt lacks appropriate self care HEP Short Term Goal (STG) Pt will be educated in proper transfers, body mechanics to reduce core pressure. 03/16/23: Pt educated in log roll transfer sit<>supine with coordination of breathing/PF ><. 03/20/23: Pt educate in transfer sit<>stand w/ coordination of breathing/PF > <. STG Duration 03/10/23 (2 weeks) (03/17/23: MET GOAL) Half-Way Goal (LTG) Pt will be independent in PF strengthening, hip ROM and and management of proper core pressure with current exercises. 03/02/23: HEP: Pillow under hips/Kegels in isolation of substitute ms and w/breathing (3 breaths). 03/17/23: HEP: Hip AD w/PF > < and transfer w/breath/PF <>. LTG Duration 05/21/23 (12 weeks) progressed 03/20/23 Assessment Summary Assessment Pt is more receptive to information and ex's provided. Pt appears discouraged that her condition has not improved after 3 visits and needs encouragement to allow time to improve PF strength and to change habits that prolong her condition. Pt was able to do transfers with proper breathwork and PF contractions after training/practice. To get a 10 sec hold contraction pt transfer sit<>stand and 8- 10 steps, and transfer into bed with additional 4 sec hold . Physical Therapy Plan Frequency and Duration Frequency of Treatment 1x/Week Duration of treatment (weeks) 12 Plan of Care Start Date 02/20/23 Plan of Care End Date 05/21/23 Next Visit Focus/Plan Next Note Type Treatment Note Next Visit Plan Next: Pt will be educated in bladder retraining method. Cont Training/Ex: Kegel without use of substitute muscles and breathing through ex. Start PF>< w/LE roll in-outs when coordinated with contraction/breathing and add ball/band. Progress towards focus on strengthening PF: R lateral wall > L lateral wall. Improve hip mobility ( rosemarie hip ER, L hip IR mobility/ strength), hip extension mobility/strength, If needed pt education in bladder retraining to minimize times of nighttime voiding. STM: improve abdominal soft tissue (bladder) mobility. POC: PF/hip strengthening, hip mobility improved.
--- NOTE | 2023-03-27 10:53 | PT.OTN ---
Current Diagnoses Stiffness of unspecified hip, not elsewhere classified (03/27/23) Muscle weakness (generalized) (03/27/23) Cystocele, unspecified (03/27/23) Acquired absence of both cervix and uterus (03/27/23) Physical Therapy Treatment Note PT-OP-A Visit Information Start: 02/16/23 17:38 Freq: Status: Active Protocol: Document 03/27/23 08:49 LRN (Rec: 03/27/23 09:40 LRN [id number]) Out-Patient Physical Therapy Visit Information Visit Information Visit Type Treatment Note Visit Start Time 08:49 Visit Stop Time 09:38 Total Visit Minutes 49 Visit Number 5 Evaluation Information Evaluation Date 02/20/23 Precautions Precautions L/S x2 fusions and C/S x1 fusion, Hip replacements: R side- Posterior approach 4 yrs ago,L side-anterior approach Feb 2022. PT-OP-B Current Condition Start: 02/16/23 17:38 Freq: Status: Active Protocol: Document 02/20/23 09:40 LRN (Rec: 02/20/23 10:37 LRN [id number]) Current Condition History of Current Condition Onset Date 2 months ago. Current Complaints Feels it between her legs. Hard to empty bladder. History of Current Condition No pain, uncomfortable having a feeling between her legs and hard to empty bladder. Night time gets up 2-3 times a night, previously was getting up at least 1x/night. Options given was a surgery with a mesh or sealing the vagina. Dr. Ortiz retired this month and scheduled to see new OBG for measuring for pessary. Prior Treatments and Tests UTI 3 yrs ago, taking demanose since. Future Testing and Treatments Planned OBGYN appt 02/22/23 - pessary measuring. Developmental History Developmental History Vaginal childbirths x 2 w/o complications that she recalls . Possible tearing of perineum with first child but can't recall. At 36 yo had precancerous cells of the cervix w/hyste, ovaries remained. Has had 3 back surgeries: L/S x2 and C/S x1 (fusions), Hip replacements (R side-4 yrs ago ,L side- Feb 2022). Treatment Goals Patient/Caregiver Goals Pt goal is primarily to decrease feeling of bulge between the legs, decrease number of times urinating at nighttime, HEP. Personal Factors Other Personal Factors That May Effect Lumbar and cervical fusions, Therapy/Recovery hip BONG (R silk blocker, L anter), Osteopenia, controlled HBP by meds. PT-OP-C Subjective Start: 02/16/23 17:38 Freq: Status: Active Protocol: Document 03/27/23 08:49 LRN (Rec: 03/27/23 09:40 LRN [id number]) OP-PT Subjective Patient Comments Patient Comments Saw Dr. Dumont last week and is scheduled for surgery , possibly sooner. Pt states use of ground flaxseed caused diarrhea, pt notes she takes Metamucil daily. Her BM 's: 03/21 were type 4, 5; , type 4,2 and from 03/23- was type 6-7. PT-OP-I Pelvic Floor Start: 02/16/23 17:38 Freq: Status: Active Protocol: Document 02/20/23 09:40 LRN (Rec: 02/20/23 11:54 LRN [id number]) Pelvic Floor Assessment Urine Leaks Per Day 0 Bowel Bowel Symptoms Constipation Other Bowel Symptoms Sometimes constipation. Pelvic Clock Pelvic Clock Other Redness around the clock in [place] and at vaginal opening. Prolapse Cystocele Grade 3 Prolapse Comments In supine: Bladder does not extend beyond the vaginal opening. Perineal Descent Resting Absent Contraction Ability Voluntary Contraction Weak Manual Muscle Testing Left 3 Manual Muscle Testing Right 0 Manual Muscle Testing Anterior 2 Manual Muscle Testing Posterior 3 Muscle Endurance (Seconds) 5 Number of Quick Contractions In 10 4 Seconds Comments Pelvic Floor Comments Pt is weak around 8-10 of the PF Clock with no lift felt on contraction. PT-OP-J Posture/Palpation/Skin Start: 02/16/23 17:38 Freq: Status: Active Protocol: Document 02/20/23 09:40 LRN (Rec: 02/20/23 11:54 LRN [id number]) Posture Evaluation Position Standing Head/C-Spine Posture Side Bent Left,C-Spine Flattened,Forward Head T-Spine Posture Flattened L-Spine Posture Flattened Scapula Posture (L) Winged,(R) Winged Pelvis Posture Anteriorly Tilted,(L) PSIS Posterior,(L) PSIS Inferior Weight Distribution Balanced Knee Posture (L) Excess Flexion,(R) Excess Flexion PT-OP-K Range of Motion Start: 02/16/23 17:38 Freq: Status: Active Protocol: Document 02/20/23 09:40 LRN (Rec: 02/20/23 10:37 LRN [id number]) Lumbar Spine Range of Motion Lumbar Spine Active Degrees Testing Position Standing Flexion 82 Extension 15 Rotation Left 20 Rotation Right 25 Lateral Flexion Left 5 Lateral Flexion Right 7 Comments Trunk AROM: Flexion is 82 deg ?s with 75 deg?s hip flexion, Trunk extension is 15 deg?s with 15 deg?s hip extension. Hip Goniometric Range of Motion Hip Right Passive Hip ROM WFL No Testing Position Supine Internal Rotation 50 External Rotation 60 Left Passive Hip ROM WFL No Testing Position Supine Internal Rotation 40 External Rotation 40 PT-OP-M Strength Start: 02/16/23 17:38 Freq: Status: Active Protocol: Document 02/20/23 09:40 LRN (Rec: 02/20/23 10:37 LRN [id number]) Trunk Strength Trunk Manual Muscle Testing Core Stabilization R hip flex - lost of trunk control Hip Strength Hip Manual Muscle Testing Right Flexion (L2) 5 Normal Extension (S1) 4+ Good+ Abduction 5 Normal Adduction 5 Normal External Rotation 5 Normal Internal Rotation 3 Fair Comments sit Left Flexion (L2) 5 Normal Extension (S1) 4+ Good+ Abduction 5 Normal Adduction 5 Normal External Rotation 5 Normal Internal Rotation 4+ Good+ Comments Not able to assess L hip AB due to pain in positioning; therefore strength tested in supine. PT-OP-Q Treatments Start: 02/16/23 17:38 Freq: Status: Active Protocol: Document 03/27/23 08:49 LRN (Rec: 03/27/23 09:40 LRN [id number]) Therapeutic Exercises Supine Exercises PF/Jenelle hip AD Supine Exercise Name PF/Jenelle hip AD Equipment Used Ball Reps/Minutes 5' PF/Hip AB/Breath Supine Exercise Name PF/Hip AB/Breath Equipment Used Lv1 TB Reps/Minutes 5' Comments Cuing to exhale on exertion PF/Hip AD/breath Supine Exercise Name PF/Hip AD-TB held out to side/ breath Equipment Used Lv1 TB Reps/Minutes 5' Comments Cuing to exhale on exertion Deep Breathing Supine Exercise Name Deep Breathing - review Equipment Used Self assess with hand on chest & belly Reps/Minutes 4' Comments Cuing for belly mvmt and reduction of chest mvmt. Sidelying Exercises PF/hip AD Sidelying Exercise Name PF/hip AD - opp foot behind lift leg Side right Reps/Minutes 5' Comments Pt cued for normal breath with lifts. Other Exercises Stairs/Belly breath/PF Other Exercise Name Stair w/belly breathing/PF Equipment Used Stairs Reps/Minutes 4' Comments Pt had difficulty coordinating PF; mostly held PF, cuing for breath Walk/Belly breath/PF Other Exercise Name Walking w/belly breathing/PF Reps/Minutes 6' Comments Difficulty coordinating PF; therefore mostly held PF, cuing for breath Self-Care/Home Management Treatment Education Other Education Bowel frequency and type of last week reviewed and discussed stopping of ground flaxseed, but continuation of her normal regime, but discussed goal of type 3,4 BM' s. Discussed and educated pt in Urinary Delay Technique. Discussion in bladder training to increase time between voids in PM. Recommended pt not void as just in case in the evenings if wanting to decrease times of voiding in evening and during first part of nighttime. Reviewed concept of core as canister and coordination of movement with breath. Activities Self-Care/Home Management Activities Issued & reviewed Urinary Delay technique/Bladder retraining handout. Written I /S to exhale on lift. PT-OP-T Assessment and Plan Start: 02/16/23 17:38 Freq: Status: Active Protocol: Document 03/27/23 08:49 LRN (Rec: 03/27/23 09:40 LRN [id number]) Physical Therapy Assessment Goals Three Impairment Feeling of bladder pressure between knees as day progresses. Impairment PF strength: R lateral wall 0/5, L lateral wall & anterior 2/5, posterior 3/5. Short Term Goal (STG) Improve PF strength on R side to 3/5. STG Duration 03/31/23 (5 weeks) Long-Term Goal (LTG) Decrease feeling of bulge between the legs. 03/16/23: Noted worsening. LTG Duration 05/21/23 (12 weeks) (: Worse) Two Impairment Increased urinary voiding at nighttime. Impairment Nighttime voiding increased from 1-2/night to 2-3/night. Short Term Goal (STG) Pt will be educated in bladder retraining method. 03/27/23: Pt educated in bladder retraining method. STG Duration 03/17/23 (3 weeks) (03/27/23: MET GOAL) Day Care Provider Goal (LTG) Decrease number of times urinating at nighttime from 2- 3x/night to 1-2x/night. LTG Duration 05/21/23 (12 weeks) One Impairment Pt lacks appropriate self care HEP Short Term Goal (STG) Pt will be educated in proper transfers, body mechanics to reduce core pressure. 03/16/23: Pt educated in log roll transfer sit<>supine with coordination of breathing/PF ><. 03/20/23: Pt educate in transfer sit<>stand w/ coordination of breathing/PF > <. STG Duration 03/10/23 (2 weeks) (03/17/23: MET GOAL) Day Care Provider Goal (LTG) Pt will be independent in PF strengthening, hip ROM and and management of proper core pressure with current exercises. 03/02/23: HEP: Pillow under hips/Kegels in isolation of substitute ms and w/breathing (3 breaths). 03/17/23: HEP: Hip AD w/PF > < and transfer w/breath/PF <>. 03/27/23: Educated pt in management of proper core pressure with current exercises, walking and stair ambulation. LTG Duration 05/21/23 (12 weeks) progressed 03/27/23 (need hip ROM ex) Assessment Summary Assessment Type 6,7 BM's with use of ground flaxseed and metamucil; therefore pt to continue with her regular routine and coordinate with fluid intake for BM's type 3,4. Pt somewhat confused with when to take breaths with exercise, but cleared confusion some after much discussion and practice with activity; although review would be appropriate. Physical Therapy Plan Frequency and Duration Frequency of Treatment 1x/Week Duration of treatment (weeks) 12 Plan of Care Start Date 02/20/23 Plan of Care End Date 05/21/23 Next Visit Focus/Plan Next Note Type Treatment Note Next Visit Plan Add: Bridge with Kegels. Review if pt wanting to decrease number of voids at nighttime. Review: Kegel on wedge/pillow without use of substitute muscles and breathing through ex. Review PF>< w/LE roll in- outs when coordinated with contraction/breathing with ball and separtely with band. ROM: Recheck and Improve hip mobility ( rosemarie hip ER, L hip IR mobility/strength), hip extension mobility/strength, STM: improve abdominal soft tissue (bladder) mobility. POC: Focus on strengthening PF: R lateral wall > L lateral wall. improve hip mobility and strength.
--- NOTE | 2023-04-03 16:55 | PT.OTN ---
Current Diagnoses Stiffness of unspecified hip, not elsewhere classified (04/03/23) Muscle weakness (generalized) (04/03/23) Cystocele, unspecified (04/03/23) Acquired absence of both cervix and uterus (04/03/23) Physical Therapy Treatment Note PT-OP-A Visit Information Start: 02/16/23 17:38 Freq: Status: Active Protocol: Document 04/03/23 08:50 LRN (Rec: 04/03/23 09:35 LRN [id number]) Out-Patient Physical Therapy Visit Information Visit Information Visit Type Treatment Note Visit Start Time 08:51 Visit Stop Time 09:29 Total Visit Minutes 38 Visit Number 6 Evaluation Information Evaluation Date 02/20/23 Precautions Precautions L/S x2 fusions and C/S x1 fusion, Hip replacements: R side- Posterior approach 4 yrs ago,L side-anterior approach Feb 2022. PT-OP-B Current Condition Start: 02/16/23 17:38 Freq: Status: Active Protocol: Document 02/20/23 09:40 LRN (Rec: 02/20/23 10:37 LRN [id number]) Current Condition History of Current Condition Onset Date 2 months ago. Current Complaints Feels it between her legs. Hard to empty bladder. History of Current Condition No pain, uncomfortable having a feeling between her legs and hard to empty bladder. Night time gets up 2-3 times a night, previously was getting up at least 1x/night. Options given was a surgery with a mesh or sealing the vagina. Dr. Ortiz retired this month and scheduled to see new OBG for measuring for pessary. Prior Treatments and Tests UTI 3 yrs ago, taking demanose since. Future Testing and Treatments Planned OBGYN appt 02/22/23 - pessary measuring. Developmental History Developmental History Vaginal childbirths x 2 w/o complications that she recalls . Possible tearing of perineum with first child but can't recall. At 36 yo had precancerous cells of the cervix w/hyste, ovaries remained. Has had 3 back surgeries: L/S x2 and C/S x1 (fusions), Hip replacements (R side-4 yrs ago ,L side- Feb 2022). Treatment Goals Patient/Caregiver Goals Pt goal is primarily to decrease feeling of bulge between the legs, decrease number of times urinating at nighttime, HEP. 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 PT-OP-C Subjective Start: 02/16/23 17:38 Freq: Status: Active Protocol: Document 04/03/23 08:50 LRN (Rec: 04/03/23 09:35 LRN [id number]) OP-PT Subjective Patient Comments Patient Comments States she's had diarrhea for ~1.5 wks. States after 2 mile walk she feels her bladder has dropped. PT-OP-I Pelvic Floor Start: 02/16/23 17:38 Freq: Status: Active Protocol: Document 02/20/23 09:40 LRN (Rec: 02/20/23 11:54 LRN [id number]) Pelvic Floor Assessment Urine Leaks Per Day 0 Bowel Bowel Symptoms Constipation Other Bowel Symptoms Sometimes constipation. Pelvic Clock Pelvic Clock Other Redness around the clock in [place] and at vaginal opening. Prolapse Cystocele Grade 3 Prolapse Comments In supine: Bladder does not extend beyond the vaginal opening. Perineal Descent Resting Absent Contraction Ability Voluntary Contraction Weak Manual Muscle Testing Left 3 Manual Muscle Testing Right 0 Manual Muscle Testing Anterior 2 Manual Muscle Testing Posterior 3 Muscle Endurance (Seconds) 5 Number of Quick Contractions In 10 4 Seconds Comments Pelvic Floor Comments Pt is weak around 8-10 of the PF Clock with no lift felt on contraction. PT-OP-J Posture/Palpation/Skin Start: 02/16/23 17:38 Freq: Status: Active Protocol: Document 02/20/23 09:40 LRN (Rec: 02/20/23 11:54 LRN [id number]) Posture Evaluation Position Standing Head/C-Spine Posture Side Bent Left,C-Spine Flattened,Forward Head T-Spine Posture Flattened L-Spine Posture Flattened Scapula Posture (L) Winged,(R) Winged Pelvis Posture Anteriorly Tilted,(L) PSIS Posterior,(L) PSIS Inferior Weight Distribution Balanced Knee Posture (L) Excess Flexion,(R) Excess Flexion PT-OP-K Range of Motion Start: 02/16/23 17:38 Freq: Status: Active Protocol: Document 02/20/23 09:40 LRN (Rec: 02/20/23 10:37 LRN [id number]) Lumbar Spine Range of Motion Lumbar Spine Active Degrees Testing Position Standing Flexion 82 Extension 15 Rotation Left 20 Rotation Right 25 Lateral Flexion Left 5 Lateral Flexion Right 7 Comments Trunk AROM: Flexion is 82 deg ?s with 75 deg?s hip flexion, Trunk extension is 15 deg?s with 15 deg?s hip extension. Hip Goniometric Range of Motion Hip Right Passive Hip ROM WFL No Testing Position Supine Internal Rotation 50 External Rotation 60 Left Passive Hip ROM WFL No Testing Position Supine Internal Rotation 40 External Rotation 40 PT-OP-M Strength Start: 02/16/23 17:38 Freq: Status: Active Protocol: Document 02/20/23 09:40 LRN (Rec: 02/20/23 10:37 LRN [id number]) Trunk Strength Trunk Manual Muscle Testing Core Stabilization R hip flex - lost of trunk control Hip Strength Hip Manual Muscle Testing Right Flexion (L2) 5 Normal Extension (S1) 4+ Good+ Abduction 5 Normal Adduction 5 Normal External Rotation 5 Normal Internal Rotation 3 Fair Comments sit Left Flexion (L2) 5 Normal Extension (S1) 4+ Good+ Abduction 5 Normal Adduction 5 Normal External Rotation 5 Normal Internal Rotation 4+ Good+ Comments Not able to assess L hip AB due to pain in positioning; therefore strength tested in supine. PT-OP-Q Treatments Start: 02/16/23 17:38 Freq: Status: Active Protocol: Document 04/03/23 08:50 LRN (Rec: 04/03/23 09:35 LRN [id number]) Therapeutic Exercises Supine Exercises Hip ER stretch Supine Exercise Name Fig 4 stretch Side bilateral Equipment Used Pillow under upper thigh Reps/Minutes 20 SH x 3 Comments Extra time taken to determine max tolerated stretch position DKTC stretch Supine Exercise Name DKTC stretch Reps/Minutes 10 SH x 6 Comments Cuing to not stretch into pain Bridge/PF></Hip AB/AD Supine Exercise Name Bridge/PF></Hip AB/AD Equipment Used with and w/o Wedge & Ball/Lv 2 TB Reps/Minutes 4 breath holds x 10 each direction PF >< w/hip AB/AD Supine Exercise Name PF >< w/Hip AB/AD Equipment Used Wedge/Ball/Lv 2 TB Reps/Minutes 4 breath holds x 10 each direction Sidelying Exercises PF/hip AD Sidelying Exercise Name PF/hip AD - opp foot behind lift leg Side right Reps/Minutes 5' Comments Pt cued for normal breath with lifts, and 20 sec rests. Sitting Exercises PF w/Hip AB/AD Sitting Exercise Name PF w/Hip AB/AD Equipment Used Pillow btn knees/Lv2 TBand Reps/Minutes 4 breath holds x 5 each direction Standing Exercises PF/Hamstring stretch position Standing Exercise Name Trng: PF></Hamstring stretch position prior to sit Reps/Minutes 3' Comments Cuing for awareness of bladder location. Self-Care/Home Management Treatment Education Patient Education Home Exercise Program Activities Self-Care/Home Management Activities Issued & reviewed HEP: LE roll in/outs w/o use of resistance. I/S pt in DKTC and Fig 4 stretch PT-OP-T Assessment and Plan Start: 02/16/23 17:38 Freq: Status: Active Protocol: Document 04/03/23 08:50 LRN (Rec: 04/03/23 09:35 LRN [id number]) Physical Therapy Assessment Goals Three Impairment Feeling of bladder pressure between knees as day progresses. Impairment PF strength: R lateral wall 0/5, L lateral wall & anterior 2/5, posterior 3/5. Short Term Goal (STG) Improve PF strength on R side to 3/5. STG Duration 03/31/23 (5 weeks) Adobe Architect Goal (LTG) Decrease feeling of bulge between the legs. 03/16/23: Noted worsening. LTG Duration 05/21/23 (12 weeks) (: Worse) Two Impairment Increased urinary voiding at nighttime. Impairment Nighttime voiding increased from 1-2/night to 2-3/night. Short Term Goal (STG) Pt will be educated in bladder retraining method. 03/27/23: Pt educated in bladder retraining method. STG Duration 03/17/23 (3 weeks) (03/27/23: MET GOAL) Adobe Architect Goal (LTG) Decrease number of times urinating at nighttime from 2- 3x/night to 1-2x/night. LTG Duration 05/21/23 (12 weeks) One Impairment Pt lacks appropriate self care HEP Short Term Goal (STG) Pt will be educated in proper transfers, body mechanics to reduce core pressure. 03/16/23: Pt educated in log roll transfer sit<>supine with coordination of breathing/PF ><. 03/20/23: Pt educate in transfer sit<>stand w/ coordination of breathing/PF > <. STG Duration 03/10/23 (2 weeks) (03/17/23: MET GOAL) Adobe Architect Goal (LTG) Pt will be independent in PF strengthening, hip ROM and and management of proper core pressure with current exercises. 03/02/23: HEP: Pillow under hips/Kegels in isolation of substitute ms and w/breathing (3 breaths). 03/17/23: HEP: Hip AD w/PF > < and transfer w/breath/PF <>. 03/27/23: Educated pt in management of proper core pressure with current exercises, walking and stair ambulation. 04/03/23: HEP: LE roll in/ out PF, ball or band, due to pt not able to coordinate. LTG Duration 05/21/23 (12 weeks) progressed 04/03/23 (need hip ROM ex) Assessment Summary Assessment Low tolerance to bridge or bridge position with Kegels due to hamstring ms cramps. Pt is fast breather; therefore pt needed to hold PF >< through 4 breaths. Not able to coordinate LE roll in/out with PF contraction. Physical Therapy Plan Frequency and Duration Frequency of Treatment 1x/Week Duration of treatment (weeks) 12 Plan of Care Start Date 02/20/23 Plan of Care End Date 05/21/23 Next Visit Focus/Plan Next Note Type Treatment Note Next Visit Plan Review if pt wanting to decrease number of voids at nighttime. Review: Kegel on pillow without use of substitute muscles and breathing through ex and Progress strengthening w/resistance. Review PF>< w/ LE roll in-outs when coordinated with contraction/ breathing with ball and separately with band. ROM: Recheck and Improve hip mobility ( rosemarie hip ER, L hip IR mobility/strength), hip extension mobility/strength, STM: improve abdominal soft tissue (bladder) mobility. POC: Focus on strengthening PF: R lateral wall > L lateral wall. improve hip mobility and strength.
--- NOTE | 2023-04-10 17:36 | PT.OTN ---
Current Diagnoses Stiffness of unspecified hip, not elsewhere classified (04/10/23) Muscle weakness (generalized) (04/10/23) Cystocele, unspecified (04/10/23) Acquired absence of both cervix and uterus (04/10/23) Physical Therapy Treatment Note PT-OP-A Visit Information Start: 02/16/23 17:38 Freq: Status: Active Protocol: Document 04/10/23 09:01 LRN (Rec: 04/10/23 09:50 LRN [id number]) Out-Patient Physical Therapy Visit Information Visit Information Visit Type Treatment Note Visit Start Time 09:01 Visit Stop Time 09:43 Total Visit Minutes 42 Visit Number 7 Evaluation Information Evaluation Date 02/20/23 Precautions Precautions L/S x2 fusions and C/S x1 fusion, Hip replacements: R side- Posterior approach 4 yrs ago,L side-anterior approach Feb 2022. PT-OP-B Current Condition Start: 02/16/23 17:38 Freq: Status: Active Protocol: Document 02/20/23 09:40 LRN (Rec: 02/20/23 10:37 LRN [id number]) Current Condition History of Current Condition Onset Date 2 months ago. Current Complaints Feels it between her legs. Hard to empty bladder. History of Current Condition No pain, uncomfortable having a feeling between her legs and hard to empty bladder. Night time gets up 2-3 times a night, previously was getting up at least 1x/night. Options given was a surgery with a mesh or sealing the vagina. Dr. Ortiz retired this month and scheduled to see new OBG for measuring for pessary. Prior Treatments and Tests UTI 3 yrs ago, taking demanose since. Future Testing and Treatments Planned OBGYN appt 02/22/23 - pessary measuring. Developmental History Developmental History Vaginal childbirths x 2 w/o complications that she recalls . Possible tearing of perineum with first child but can't recall. At 36 yo had precancerous cells of the cervix w/hyste, ovaries remained. Has had 3 back surgeries: L/S x2 and C/S x1 (fusions), Hip replacements (R side-4 yrs ago ,L side- Feb 2022). Treatment Goals Patient/Caregiver Goals Pt goal is primarily to decrease feeling of bulge between the legs, decrease number of times urinating at nighttime, HEP. 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 PT-OP-C Subjective Start: 02/16/23 17:38 Freq: Status: Active Protocol: Document 04/10/23 09:01 LRN (Rec: 04/10/23 09:50 LRN [id number]) OP-PT Subjective Patient Comments Patient Comments Feeling like her bladder is worse. States she had colonoscopy last wed and has helped clear up her diarrhea. PT-OP-I Pelvic Floor Start: 02/16/23 17:38 Freq: Status: Active Protocol: Document 02/20/23 09:40 LRN (Rec: 02/20/23 11:54 LRN [id number]) Pelvic Floor Assessment Urine Leaks Per Day 0 Bowel Bowel Symptoms Constipation Other Bowel Symptoms Sometimes constipation. Pelvic Clock Pelvic Clock Other Redness around the clock in [place] and at vaginal opening. Prolapse Cystocele Grade 3 Prolapse Comments In supine: Bladder does not extend beyond the vaginal opening. Perineal Descent Resting Absent Contraction Ability Voluntary Contraction Weak Manual Muscle Testing Left 3 Manual Muscle Testing Right 0 Manual Muscle Testing Anterior 2 Manual Muscle Testing Posterior 3 Muscle Endurance (Seconds) 5 Number of Quick Contractions In 10 4 Seconds Comments Pelvic Floor Comments Pt is weak around 8-10 of the PF Clock with no lift felt on contraction. PT-OP-J Posture/Palpation/Skin Start: 02/16/23 17:38 Freq: Status: Active Protocol: Document 02/20/23 09:40 LRN (Rec: 02/20/23 11:54 LRN [id number]) Posture Evaluation Position Standing Head/C-Spine Posture Side Bent Left,C-Spine Flattened,Forward Head T-Spine Posture Flattened L-Spine Posture Flattened Scapula Posture (L) Winged,(R) Winged Pelvis Posture Anteriorly Tilted,(L) PSIS Posterior,(L) PSIS Inferior Weight Distribution Balanced Knee Posture (L) Excess Flexion,(R) Excess Flexion PT-OP-K Range of Motion Start: 02/16/23 17:38 Freq: Status: Active Protocol: Document 02/20/23 09:40 LRN (Rec: 02/20/23 10:37 LRN [id number]) Lumbar Spine Range of Motion Lumbar Spine Active Degrees Testing Position Standing Flexion 82 Extension 15 Rotation Left 20 Rotation Right 25 Lateral Flexion Left 5 Lateral Flexion Right 7 Comments Trunk AROM: Flexion is 82 deg ?s with 75 deg?s hip flexion, Trunk extension is 15 deg?s with 15 deg?s hip extension. Hip Goniometric Range of Motion Hip Right Passive Hip ROM WFL No Testing Position Supine Internal Rotation 50 External Rotation 60 Left Passive Hip ROM WFL No Testing Position Supine Internal Rotation 40 External Rotation 40 PT-OP-M Strength Start: 02/16/23 17:38 Freq: Status: Active Protocol: Document 02/20/23 09:40 LRN (Rec: 02/20/23 10:37 LRN [id number]) Trunk Strength Trunk Manual Muscle Testing Core Stabilization R hip flex - lost of trunk control Hip Strength Hip Manual Muscle Testing Right Flexion (L2) 5 Normal Extension (S1) 4+ Good+ Abduction 5 Normal Adduction 5 Normal External Rotation 5 Normal Internal Rotation 3 Fair Comments sit Left Flexion (L2) 5 Normal Extension (S1) 4+ Good+ Abduction 5 Normal Adduction 5 Normal External Rotation 5 Normal Internal Rotation 4+ Good+ Comments Not able to assess L hip AB due to pain in positioning; therefore strength tested in supine. PT-OP-Q Treatments Start: 02/16/23 17:38 Freq: Status: Active Protocol: Document 04/10/23 09:01 LRN (Rec: 04/10/23 09:50 LRN [id number]) Cardio Equipment Treadmill Duration (Minutes) 2 Speed 1.7 Incline 0 Therapeutic Exercises Supine Exercises Gait w/PF contraction Supine Exercise Name Gait with PF contraction from waiting room to treatment room Reps/Minutes 2' Comments V cuing for PF contraction Ilipsoas stretch Supine Exercise Name José Miguel Test Position Side right Reps/Minutes 3' Other Exercises Transfer sit<>stand coord w/PF/breath Other Exercise Name Transfer PF >< w/breath phys cuing at PF Reps/Minutes 10x Comments Phys & v cuing anterior PF contraction with transfer Manual Therapy Treatment Soft Tissue Mobilization R Iliopsoas release Body Location R Ilipsoas - approximation and Contract relax stretch Mobilization Type Strumming,Other Intensity/Depth Moderate Body Position Supine Comments Pt responded to approximation mob better than c/r stretch. Abdomen Body Location Bladder lift, appendix scar mob, Bladder lift with knee rolls R. Mobilization Type Manual Lymphatic Drainage, Myofascial Release Intensity/Depth Moderate Body Position Supine Manual Techniques MWM Type MWM Bladder lift with Sit<> stand Reps/Duration 10x (7') Comments Training for anterior PF contraction with phys cuing of PT hand placement where a >< can be felt and for cuing to contract in the location with sit<>stand. PT-OP-T Assessment and Plan Start: 02/16/23 17:38 Freq: Status: Active Protocol: Document 04/10/23 09:01 LRN (Rec: 04/10/23 09:50 LRN [id number]) Physical Therapy Assessment Goals Three Impairment Feeling of bladder pressure between knees as day progresses. Impairment PF strength: R lateral wall 0/5, L lateral wall & anterior 2/5, posterior 3/5. Short Term Goal (STG) Improve PF strength on R side to 3/5. STG Duration 03/31/23 (5 weeks) Mcc Goal (LTG) Decrease feeling of bulge between the legs. 03/16/23: Noted worsening. LTG Duration 05/21/23 (12 weeks) (: Worse) Two Impairment Increased urinary voiding at nighttime. Impairment Nighttime voiding increased from 1-2/night to 2-3/night. Short Term Goal (STG) Pt will be educated in bladder retraining method. 03/27/23: Pt educated in bladder retraining method. STG Duration 03/17/23 (3 weeks) (03/27/23: MET GOAL) Getter Operator Goal (LTG) Decrease number of times urinating at nighttime from 2- 3x/night to 1-2x/night. LTG Duration 05/21/23 (12 weeks) One Impairment Pt lacks appropriate self care HEP Short Term Goal (STG) Pt will be educated in proper transfers, body mechanics to reduce core pressure. 03/16/23: Pt educated in log roll transfer sit<>supine with coordination of breathing/PF ><. 03/20/23: Pt educate in transfer sit<>stand w/ coordination of breathing/PF > <. STG Duration 03/10/23 (2 weeks) (03/17/23: MET GOAL) Mcc Goal (LTG) Pt will be independent in PF strengthening, hip ROM and and management of proper core pressure with current exercises. 03/02/23: HEP: Pillow under hips/Kegels in isolation of substitute ms and w/breathing (3 breaths). 03/17/23: HEP: Hip AD w/PF > < and transfer w/breath/PF <>. 03/27/23: Educated pt in management of proper core pressure with current exercises, walking and stair ambulation. 04/03/23: HEP: LE roll in/ out PF, ball or band, due to pt not able to coordinate. LTG Duration 05/21/23 (12 weeks) progressed 04/03/23 (need hip ROM ex) Assessment Summary Assessment Improved pt awareness of anterior PF contraction with sit<>stand after much training during and after MWM exercise . Pt has much restriction on R abdomen from previous scaring when child. Quick release of R iliopsoas after manual stretch and mob. Physical Therapy Plan Frequency and Duration Frequency of Treatment 1x/Week Duration of treatment (weeks) 12 Plan of Care Start Date 02/20/23 Plan of Care End Date 05/21/23 Next Visit Focus/Plan Next Note Type Treatment Note Next Visit Plan (surgery planned 05/02/23). Assess response to MWM and manual treatment. Next: Add HEP hip mobility (rosemarie hip ER, L hip IR mobility/strength), hip extension mobility/ strength, Review if pt wanting to decrease number of voids at nighttime. HEP for post surgery: strengthening: Kegel on pillow without use of substitute muscles and breathing through ex. Progress PF strengthening w/ resistance. Review PF>< w/LE roll in-outs when coordinated with contraction/breathing with ball and separately with band. Strengthen lateral rios (R>L) ROM: Recheck and Improve hip mobility ( rosemarie hip ER, L hip IR mobility/strength), hip extension mobility/strength, POC: Focus on strengthening PF: R lateral wall > L lateral wall. Improve hip mobility and strength.
--- NOTE | 2023-04-17 17:40 | PT.OTN ---
Current Diagnoses Stiffness of unspecified hip, not elsewhere classified (04/17/23) Muscle weakness (generalized) (04/17/23) Cystocele, unspecified (04/17/23) Acquired absence of both cervix and uterus (04/17/23) Physical Therapy Treatment Note PT-OP-A Visit Information Start: 02/16/23 17:38 Freq: Status: Active Protocol: Document 04/17/23 09:50 LRN (Rec: 04/17/23 10:39 LRN [id number]) Out-Patient Physical Therapy Visit Information Visit Information Visit Type Treatment Note Visit Start Time 09:50 Visit Stop Time 10:24 Total Visit Minutes 34 Visit Number 8 Evaluation Information Evaluation Date 02/20/23 Precautions Precautions L/S x2 fusions and C/S x1 fusion, Hip replacements: R side- Posterior approach 4 yrs ago,L side-anterior approach Feb 2022. PT-OP-B Current Condition Start: 02/16/23 17:38 Freq: Status: Active Protocol: Document 02/20/23 09:40 LRN (Rec: 02/20/23 10:37 LRN [id number]) Current Condition History of Current Condition Onset Date 2 months ago. Current Complaints Feels it between her legs. Hard to empty bladder. History of Current Condition No pain, uncomfortable having a feeling between her legs and hard to empty bladder. Night time gets up 2-3 times a night, previously was getting up at least 1x/night. Options given was a surgery with a mesh or sealing the vagina. Dr. Ortiz retired this month and scheduled to see new OBG for measuring for pessary. Prior Treatments and Tests UTI 3 yrs ago, taking demanose since. Future Testing and Treatments Planned OBGYN appt 02/22/23 - pessary measuring. Developmental History Developmental History Vaginal childbirths x 2 w/o complications that she recalls . Possible tearing of perineum with first child but can't recall. At 36 yo had precancerous cells of the cervix w/hyste, ovaries remained. Has had 3 back surgeries: L/S x2 and C/S x1 (fusions), Hip replacements (R side-4 yrs ago ,L side- Feb 2022). Treatment Goals Patient/Caregiver Goals Pt goal is primarily to decrease feeling of bulge between the legs, decrease number of times urinating at nighttime, HEP. 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 PT-OP-C Subjective Start: 02/16/23 17:38 Freq: Status: Active Protocol: Document 04/17/23 09:50 LRN (Rec: 04/17/23 10:39 LRN [id number]) OP-PT Subjective Patient Comments Patient Comments (surgery planned 05/02/23). After urinating, feels not totally emtpying. Choosing not to have PF final assessment. Patient Questionnaires Pelvic Pain and Urgency/Frequency Patient Symptom Scale Pelvic Pain Score 12 PT-OP-I Pelvic Floor Start: 02/16/23 17:38 Freq: Status: Active Protocol: Document 02/20/23 09:40 LRN (Rec: 02/20/23 11:54 LRN [id number]) Pelvic Floor Assessment Urine Leaks Per Day 0 Bowel Bowel Symptoms Constipation Other Bowel Symptoms Sometimes constipation. Pelvic Clock Pelvic Clock Other Redness around the clock in [place] and at vaginal opening. Prolapse Cystocele Grade 3 Prolapse Comments In supine: Bladder does not extend beyond the vaginal opening. Perineal Descent Resting Absent Contraction Ability Voluntary Contraction Weak Manual Muscle Testing Left 3 Manual Muscle Testing Right 0 Manual Muscle Testing Anterior 2 Manual Muscle Testing Posterior 3 Muscle Endurance (Seconds) 5 Number of Quick Contractions In 10 4 Seconds Comments Pelvic Floor Comments Pt is weak around 8-10 of the PF Clock with no lift felt on contraction. PT-OP-J Posture/Palpation/Skin Start: 02/16/23 17:38 Freq: Status: Active Protocol: Document 02/20/23 09:40 LRN (Rec: 02/20/23 11:54 LRN [id number]) Posture Evaluation Position Standing Head/C-Spine Posture Side Bent Left,C-Spine Flattened,Forward Head T-Spine Posture Flattened L-Spine Posture Flattened Scapula Posture (L) Winged,(R) Winged Pelvis Posture Anteriorly Tilted,(L) PSIS Posterior,(L) PSIS Inferior Weight Distribution Balanced Knee Posture (L) Excess Flexion,(R) Excess Flexion PT-OP-K Range of Motion Start: 02/16/23 17:38 Freq: Status: Active Protocol: Document 02/20/23 09:40 LRN (Rec: 02/20/23 10:37 LRN [id number]) Lumbar Spine Range of Motion Lumbar Spine Active Degrees Testing Position Standing Flexion 82 Extension 15 Rotation Left 20 Rotation Right 25 Lateral Flexion Left 5 Lateral Flexion Right 7 Comments Trunk AROM: Flexion is 82 deg ?s with 75 deg?s hip flexion, Trunk extension is 15 deg?s with 15 deg?s hip extension. Hip Goniometric Range of Motion Hip Right Passive Hip ROM WFL No Testing Position Supine Internal Rotation 50 External Rotation 60 Left Passive Hip ROM WFL No Testing Position Supine Internal Rotation 40 External Rotation 40 PT-OP-M Strength Start: 02/16/23 17:38 Freq: Status: Active Protocol: Document 02/20/23 09:40 LRN (Rec: 02/20/23 10:37 LRN [id number]) Trunk Strength Trunk Manual Muscle Testing Core Stabilization R hip flex - lost of trunk control Hip Strength Hip Manual Muscle Testing Right Flexion (L2) 5 Normal Extension (S1) 4+ Good+ Abduction 5 Normal Adduction 5 Normal External Rotation 5 Normal Internal Rotation 3 Fair Comments sit Left Flexion (L2) 5 Normal Extension (S1) 4+ Good+ Abduction 5 Normal Adduction 5 Normal External Rotation 5 Normal Internal Rotation 4+ Good+ Comments Not able to assess L hip AB due to pain in positioning; therefore strength tested in supine. PT-OP-Q Treatments Start: 02/16/23 17:38 Freq: Status: Active Protocol: Document 04/17/23 09:50 LRN (Rec: 04/17/23 10:39 LRN [id number]) Therapeutic Exercises Supine Exercises Lateral Hip stretch Supine Exercise Name Lateral Hip stretch-cuing to not stretch into pain. Side bilateral Reps/Minutes 6' Comments Extra time for determining max leonela stretch bilateral due to BONG's. Piriformis stretch Supine Exercise Name Piriformis stretch-cuing to not stretch into pain. Side bilateral Reps/Minutes 6' Comments Extra time for determining max leonela stretch bilateral due to BONG's. Hip ER stretch Supine Exercise Name Fig 4 stretch-cuing to not stretch into pain. Side bilateral Reps/Minutes 6' Comments Extra time taken to determine max tolerated stretch position DKTC stretch Supine Exercise Name DKTC stretch -cuing to not stretch into pain. Side bilateral Reps/Minutes 6' Comments Extra time for determining max leonela stretch bilateral due to BONG's. Sitting Exercises Hip AD stretch Sitting Exercise Name Hip AD stretch Side right Reps/Minutes 6' Comments Extra time for determining max leonela stretch bilateral due to BONG's. Self-Care/Home Management Treatment Activities Self-Care/Home Management Activities HEP issued: hip mobility (mayur hip ER, L hip IR & Extension PT-OP-T Assessment and Plan Start: 02/16/23 17:38 Freq: Status: Active Protocol: Document 04/17/23 09:50 LRN (Rec: 04/17/23 10:39 LRN [id number]) Physical Therapy Assessment Goals Three Impairment Feeling of bladder pressure between knees as day progresses. Impairment PF strength: R lateral wall 0/5, L lateral wall & anterior 2/5, posterior 3/5. Short Term Goal (STG) Improve PF strength on R side to 3/5. STG Duration 03/31/23 (5 weeks) (: Not assessed at pt request ) Director Cost Goal (LTG) Decrease feeling of bulge between the legs. 03/16/23: Noted worsening. LTG Duration 05/21/23 (12 weeks) (: NOT MET, worsening) Two Impairment Increased urinary voiding at nighttime. Impairment Nighttime voiding increased from 1-2/night to 2-3/night. Short Term Goal (STG) Pt will be educated in bladder retraining method. 03/27/23: Pt educated in bladder retraining method. STG Duration 03/17/23 (3 weeks) (03/27/23: MET GOAL) Director Cost Goal (LTG) Decrease number of times urinating at nighttime from 2- 3x/night to 1-2x/night. 04/17/23: Getting up 2-3x/ night (2x/btn 9-12 and 1x @ 4: 30 am) LTG Duration 05/21/23 (12 weeks) (04/17/23 : NOT MET ) One Impairment Pt lacks appropriate self care HEP Short Term Goal (STG) Pt will be educated in proper transfers, body mechanics to reduce core pressure. 03/16/23: Pt educated in log roll transfer sit<>supine with coordination of breathing/PF ><. 03/20/23: Pt educate in transfer sit<>stand w/ coordination of breathing/PF > <. STG Duration 03/10/23 (2 weeks) (03/17/23: MET GOAL) Jail Goal (LTG) Pt will be independent in PF strengthening, hip ROM and and management of proper core pressure with current exercises. 03/02/23: HEP: Pillow under hips/Kegels in isolation of substitute ms and w/breathing (3 breaths). 03/17/23: HEP: Hip AD w/PF > < and transfer w/breath/PF <>. 03/27/23: Educated pt in management of proper core pressure with current exercises, walking and stair ambulation. 04/03/23: HEP: LE roll in/ out PF, ball or band, due to pt not able to coordinate. 04/17/23: HEP: Mayur limiting Hip Piriformis & Lateral Hip stretch; L limiting Hip ER & ADD stretch LTG Duration 05/21/23 (12 weeks) (: MET GOAL) Assessment Summary Assessment Pt is having early discharge from PF physical therapy due to worsening of her prolapse sensation and scheduled bladder lift surgery planned 05/02/23. PUF score worsened from 6 to 12. The pt has a HEP of PF strengthening hip ROM exercises, and educated in core pressure management and bladder retraining technique. She did not want to have the PF strength final assessment performed; therefore it is unknown if she was able to strengthen her PF on the weak side. The pt has had a posterior R BONG and anterior L BONG that has caused a muscle imbalance in her hip mobility, and probably is affecting her PF strength symmetry. She is aware of the importance in improving symmetry and to continue new habits taught. The pt has a HEP and is being discharged to her HEP. Physical Therapy Plan Discharge Physical Therapy Discharge Reasons Patient Request Discharge Comments Bladder lift surgery planned 05/02/23. Thank you for your referral.
== END 2023-04-19 10:21 | disposition home or self-care (01) ==
LOC: PHYS 09:45
PROVIDERS: Family Provider Family Medicine; PCP Family Medicine; Referring Provider Specialist; Visit Provider Specialist
DX: N81.10 Cystocele, unspecified (principal); Z90.710 Acquired absence of both cervix and uterus; M62.81 Muscle weakness (generalized); M25.659 Stiffness of unspecified hip, not elsewhere classified
CPT/HCPCS: 97110; 97140; 97162; 97535

== ENCOUNTER 2023-05-01 07:51 | Day surgery (SDC) | payer MEDICARE, OTHER, SELFPAY ==
[2022-12-21 08:34] VITALS: BMI 22.9
[2023-04-27 08:12] VITALS: BMI 22.1
[2023-05-01] VITALS (13 sets, daily range): BP systolic 124–158; BP diastolic 60–84; PULSE 61–73; RESP 13–21; TEMP 36–36.6; O2SAT 95–99; BMI 22.1
[2023-05-01] MEDS: ACETAMINOPHEN 325 MG TABLET 975 MG PO (08:25)
[2023-05-01] MEDS: LACTATED RINGERS 1,000 ML 42 ML IV ×2 (08:26→10:56)
--- NOTE | 2023-05-01 09:02 | SUR.OPER ---
Lithotomy on padded OR bed, head on pillow, arms secured on padded arm boards at <90 degrees abduction. Legs secured in padded yellow fins stirrups.
--- NOTE | 2023-05-01 09:08 | PM.PREOP ---
Pre-operative Note Interval Note History & Physical reviewed/Exam performed by Physician: Yes Changes to H&P: No H&P completed within 30 days and has changed as indicated here:: 04/25/23
[2023-05-01] MEDS: CEFAZOLIN 2 GM/100 ML PREMIX 100 ML IV (09:30)
[2023-05-01] MEDS: BUPIVACAINE 0.25% (PF) 30 ML, EPINEPHrine 0.15 MG INJ (09:50)
[2023-05-01] MEDS: OXYCODONE IR 5 MG TABLET PO (11:42)
[2023-05-01] MEDS: PHENAZOPYRIDINE 100 MG TABLET 200 MG PO (12:07)
--- NOTE | 2023-05-01 12:42 | P.OP_ITS ---
Operative Date/Time/Diagnoses Date of procedure: 05/01/23 Time of procedure: 11:20 Pre-op diagnosis: Symptomatic cystocele and rectocele Symptomatic vaginal vault prolapse Post-op diagnosis: same Procedure & Clinicians Procedure: Procedures Operation Date: 05/01/23 09:45 Actual Procedure Side Surgeon p Anterior/Posterior Repair with sacrospinous ligament fixation Sandrine Loo MD Indications: 77-year-old 2 para 2 with symptomatic cystocele, rectocele, and vaginal vault prolapse Failed pelvic floor therapy Surgeon: Sandrine Loo Filter Press Tender Head: Teresa Bragg Anesthesia Type: General (LMA) Operative Notes Findings: Third-degree rectocele Second to third-degree cystocele Second to third-degree vaginal vault prolapse Closure Type: primary Specimen(s): none Applied: catheter (To continuous drainage) and other (Vaginal pack in place) Estimated blood loss (mL): 25 Blood products transfused: none Procedure in detail: The patient was taken to the operating room where she was placed in the dorsal supine position. After adequate LMA general anesthesia was achieved, she was placed in the dorsal lithotomy position, and prepped and draped in the usual sterile fashion. A time-out was performed. A Borden catheter had previously been placed into the bladder. A weighted speculum was placed into the vagina. The apex of the cystocele was grasped with narrow Allis clamps. 3 cc of 0.25% Marcaine with epinephrine were injected between the Allis clamps and an incision was made with a # 10 blade. Wide Allis clamps were placed at the midline of the cystocele. 5 cc of 0.25% Marcaine with epinephrine were injected submucosally. The mucosa was undermined and incised in the midline moving the wide Allis clamps to the edges. This continued all the way to the apex of the cystocele, which was about 1.5 cm from the urethral meatus. The underlying fascia was dissected off of the mucosa using a # 10 blade and an open moistened Ray-Jory. The fascia was reapproximated with 0 Vicryl with interrupted sutures. The excess vaginal mucosa was excised. The mucosa was closed with 2-0 Vicryl with simple interrupted sutures including the underlying fascia to close the sp dylon. The weighted speculum was removed from the vagina. Narrow Allis clamps were placed at the mucocutaneous junction on both sides. 5 cc of 0.25% Marcaine with epinephrine were injected between the Allis clamps and along the perineal body. Using a # 10 blade a triangular piece of tissue was taken out between the Allis clamps with the apex of the triangle along the perineum. Wide Allis clamps were placed at the midline of the rectocele. 10 cc of 0.25% Marcaine with epinephrine were injected submucosally. The mucosa was undermined with Metzenbaum scissors and incised in the midline and the wide Allis clamps were moved to the mucosal edges. The underlying fascia was dissected off of the mucosa using a # 10 blade and an open moistened Ray-Jory. At the most distal portion of the rectocele there was found to be an enterocele. This was closed with a pursestring suture of 2-0 Vicryl. The sacral spinous ligament was identified on the patient's right side and bluntly cleared away of all tissue. The mucosa of the rectocele was closed with a first 3 stitches with 2-0 Vicryl with simple interrupted sutures. A stitch with 2-0 Prolene was placed into the sacral spinous ligament 2 cm away from the ischial spine and then placed through the mid vaginal mucosa with care not to go all the way through the mucosa. This was tagged with a hemostat. The fascia of the rectocele was closed with 0 Vicryl with interrupted sutures. Carlos through the sacral spinous ligament stitch was tied down with good support of the vaginal vault. The remainder of the rectocele was closed on the fascia with 0 Vicryl. The excess vaginal mucosa was excised. The mucosa was closed with 2-0 Vicryl with simple interrupted sutures including the underlying fascia to close the space. On the perin eum 0 Vicryl was placed on the levators. 2-0 Vicryl was used to close the perineum. 2-0 chromic was used to close the skin with simple interrupted sutures. A Betadine moistened vaginal packing was placed into the vagina. The urine was clear. A rectal exam was performed and there were no sutures in the rectum. Sponge, lap, and instrument counts were correct x2. The patient tolerated the procedure well, and was taken to PACU in stable condition. Complications: none Post-operative Condition: stable Disposition: PACU Plan for aftercare: To acute care after recovery
[2023-05-01] MEDS: IBUPROFEN 600 MG TABLET PO ×2 (13:00→18:10)
[2023-05-01] MEDS: ACETAMINOPHEN 325 MG TABLET 650 MG PO ×2 (13:01→18:11)
[2023-05-01] MEDS: LACTATED RINGERS 1,000 ML 75 ML IV (13:04)
[2023-05-01 14:37] LABS: Add Manual Diff / Slide Review NO; Basophils Absolute Auto 0 /uL (0-100); Basophils Percent Auto 0.3 % (0-2); Eosinophils Absolute Auto 0 /uL (0-450); Eosinophils Percent Auto 0.7 % (2-4); Hematocrit 39.8 % (36-46); Hemoglobin 13.2 g/dL (12.0-16.0); Lymphocytes Absolute Auto 700 /uL (1100-4500); Lymphocytes Percent Auto 12.6 % (25-40); Mean Corpuscular HGB Conc 33.3 % (30-36); Mean Corpuscular Hemoglobin 28.5 PG (26-34); Mean Corpuscular Volume 85.5 fL (80-100); Monocytes Absolute Auto 100 /uL (0-900); Monocytes Percent Auto 2.2 % (3-14); Neutrophils Absolute Auto 4600 /uL (1500-7000); Neutrophils Percent Auto 84.2 % (50-75); Platelet Count 220 X10^3/uL (150-400); Red Blood Cell Count 4.65 X10^6/uL (4.0-5.2); Red Cell Distribution Width 14.4 % (11.6-14.8); White Blood Cell Count 5.5 X10^3/uL (4.5-11.0)
[2023-05-01 14:38] LABS: BUN Creatinine Ratio 20.3 (6-22); Blood Urea Nitrogen 13 mg/dL (7-17); Calcium 9.7 mg/dL (8.4-10.2); Carbon Dioxide 28 mmol/L (22-32); Chloride 102 mmol/L (98-107); Estimated Glomerular Filt Rate > 60 mL/min (>60); Glucose 184 mg/dL (80-110); HEMOLYSIS < 15 (0-50); Sodium 135 mmol/L (137-145)
[2023-05-01] MEDS: PHENAZOPYRIDINE 100 MG TABLET PO (18:11)
[2023-05-01] MEDS: hydrOXYzine pamoate 25 MG CAPSULE 50 MG PO (21:25)
[2023-05-01] MEDS: CYCLOBENZAPRINE 10 MG TABLET 5 MG PO (21:25)
[2023-05-01] MEDS: DOCUSATE 100 MG CAPSULE 200 MG PO (21:25)
[2023-05-02] VITALS: BP 131/67; PULSE 53; RESP 17; TEMP 36.4; O2SAT 93
[2023-05-02] MEDS: ACETAMINOPHEN 325 MG TABLET 650 MG PO ×2 (00:17→06:05)
[2023-05-02] MEDS: IBUPROFEN 600 MG TABLET PO ×2 (00:17→06:05)
[2023-05-02] MEDS: LACTATED RINGERS 1,000 ML 75 ML IV (00:39)
[2023-05-02 04:00] VITALS: BP 120/54; PULSE 63; RESP 19; TEMP 36.1; O2SAT 97
--- NOTE | 2023-05-02 06:10 | PC.NURSE ---
Removed vaginal packing per dr order. Pt tolerated well.
--- NOTE | 2023-05-02 08:04 | P.DS_ITS ---
History of Present Illness History of Present Illness Date Patient Seen: 05/02/23 Time Patient Seen: 08:04 Chief complaint: Anterior/Posterior Repair w/SSLF *OPB* Narrative: Patient is a 77-year-old 2 para 2 who presents for preoperative exam for an anterior-posterior repair, and a sacral spinous ligament fixation. This is being done due to cystocele, rectocele, and vaginal vault prolapse. She has tried pelvic floor physical therapy and this has not helped. Patient has not been sexually active in a year, but would like to keep that option open. Discharge Providers Provider Date of admission: 05/01/2023 Discharge Date: 05/02/23 Primary care physician: Nehal Llanes DO Discharge provider: Arnol Virk MD Summary Hospital Course Discharge Diagnosis: Symptomatic cystocele and rectocele Vaginal vault prolapse Hospital Course: The patient was admitted on 05/01/2023 and underwent an uneventful anterior and posterior repair with sacral spinous fixation of the vaginal apex. Details of the procedure well summarized on Dr. Gosia Loo's operative note of that date. Following surgery the patient has done extremely well with prompt return of bowel and bladder function following removal of catheter and removal of vaginal pack. In addition she is ambulating independently, tolerating a regular diet, and her pain is well controlled with oral pain medications. She will be discharged at this time to home in an afebrile normotensive condition after counseling regarding precautionary symptoms, limitations of activity, medications, and plans for follow-up which will be in 2 weeks. Medications at discharge will include resumption of all pre admission medications and [id number] Tylenol/ibuprofen for pain relief. Status at Discharge Cognitive/behavioral status at discharge: oriented Functional status at discharge: independent ambulation Overall status at discharge: patient is progressing back to baseline Time Spent with Patient Time spent: Less than 30 minutes Exam Vital Signs (past 8 hours): - 05/02/23 04:00 Temperature 97.0 F L Pulse Rate 63 Respiratory Rate 19 Blood Pressure 120/54 L Pulse Oximetry 97 Oxygen Delivery Method Room Air Oxygen Flow Rate 0 Const General: cooperative and comfortable Nutritional Appearance: average body habitus Orientation: alert and oriented x3 HENMT Head: normal to inspection, atraumatic and abrasion Ears: hearing grossly normal bilaterally Face and sinus: face symmetric Eyes General: appearance normal, both eyes and all related structures Conjunctivae: conjunctivae normal Sclera: sclerae normal EOM: EOM intact bilaterally Neck Neck: normal visual inspection Resp Effort & Inspection: normal respiratory effort and able to speak in complete sentences Auscultation: clear to auscultation bilaterally Cardio Rate: regular rate Rhythm: regular rhythm Heart Sounds: S1 normal, S2 normal and no murmurs GI Inspection: normal to inspection Palpation: soft, no hepatosplenomegaly and tender (Mild, diffuse postsurgical tenderness) External Female Exam: other (No significant bleeding noted) Extrem General: no calf tenderness Psych Appearance: grossly normal Mental Status: mental status grossly normal Speech and Movement: speech and movement normal Mood: congruent mood Affect: normal affect Attitude: cooperative Thought Process: normal Thought Content: normal Judgment: judgment good Objective Labs 05/01/23 14:11 05/01/23 14:11 Labs: Laboratory Results - last 24 hr 05/01/23 14:11 WBC 5.5 RBC 4.65 Hgb 13.2 Hct 39.8 MCV 85.5 MCH 28.5 MCHC 33.3 RDW 14.4 Plt Count 220 Neut % (Auto) 84.2 H Lymph % (Auto) 12.6 L [place] % (Auto) 2.2 L Eos % (Auto) 0.7 L Baso % (Auto) 0.3 Neut # (Auto) 4600 Lymph # (Auto) 700 L [place] # (Auto) 100 Eos # (Auto) 0 Baso # (Auto) 0 Sodium 135 L Potassium 4.0 Chloride 102 Carbon Dioxide 28 BUN 13 Creatinine 0.64 Estimated GFR > 60 BUN/Creatinine Ratio 20.3 Glucose 184 H Calcium 9.7 PFSH Medical History (Updated 08/30/23 @ 10:50 by Ynes Cosme PA-C) Vaginal vault prolapse Cystocele with rectocele Family history of stroke Hyperlipidemia Adrenal adenoma Mumps (4) Measles (1952) Chicken pox (1951) Abnormal Pap smear of cervix (1982) Chronic headaches Shoulder pain (2010) Lumbar spinal stenosis Chronic back pain Cervical spine disease Colon polyps (03/04/15) 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) Hypertension (12/03/14) 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) Osteopenia (2009) Cervical radiculopathy (10/02/13) Surgical History (Updated 08/30/23 @ 10:50 by Ynes Cosme PA-C) S/P total hip arthroplasty (03/24/22) Status post cervical spinal fusion (10/2012) Status post lumbar spine surgery for decompression of spinal cord (04/2012) Status post lumbar laminectomy (01/24/17) Anesthesia History of colonoscopy with polypectomy (03/04/15) History of rectal surgery Status post appendectomy Status post reduction mammoplasty Status post hysterectomy (1982) Status post colonoscopy (2008) Status post arthroscopy S/P total hip arthroplasty (09/11/17) Family History Brother Age: 84 Cancer, colon Father Dementia Grandmother CVA (cerebral vascular accident) Mother CVA (cerebral vascular accident) Hypertension Hyperlipidemia Grandmother Cancer Grandfather No problems noted. Grandfather Surgical complication Social History marital status: household members: spouse occupational status: previously employed Smoking Status: Never smoker alcohol intake: current substance use type: does not use Discharge Assessment & Plan Assessment and Plan Assessment: Symptomatic cystocele and rectocele Vaginal vault prolapse Status post anterior and posterior repair with sacral spinous ligament fixation of the vaginal vault. Plan of Treatment: Routine postoperative care with follow-up planned for 2 weeks postop Discharge Plan Discharge Plan Patient Disposition: Home Provider Discharge Comment: Call with fever, chills or bleeding vaginally more than spotting to light Call if unable to empty bladder Ibuprofen 600mg every 6 hours as needed for pain Tylenol 650mg every 6 hours as needed for pain Empty bladder every 3 hours, set alarm for once through the night Discharge orders & Medications Discharge Orders: Discharge (Order); Ordered 05/02/23 Ordered By: Arnol Virk Prescriptions: Continued Lactobac 40-Bifido 3-S.thermop 100 billion cell Capsule 100 cap PO QDAY Qty: 0 omega-3 fatty acids Capsule 500 mg PO DAILY cholecalciferol (vitamin D3) [Vitamin D3] 25 mcg (1,000 unit) Tablet 25 mcg PO DAILY d-mannose 500 mg Capsule 500 mg PO DAILY guar gum-calcium carbonate 100 mg Tablet,Chewable 100 tab PO DAILY psyllium Packet 1 packet PO DAILY Rx Instructions: mix into at least 8 oz of water or juice before administering potassium citrate 99 mg Capsule 99 mg PO DAILY Patient Comments: OTC medication turmeric root extract 1,000 mg tablet 1 tab PO QDAY Patient Comments: turmeric-curcumin OTC Discontinued estradiol 0.01 % (0.1 mg/gram) cream 1 g vaginal 2XW Qty: 42.5 3RF No Action amlodipine 5 mg tablet 5 mg PO DAILY Qty: 90 0RF magnesium glycinate 100 mg tablet 100 mg PO DAILY ezetimibe 10 mg tablet 10 mg PO DAILY Qty: 30 0RF Follow up/Referrals: Sandrine Loo MD [Physician] - As previously scheduled (Post op appointments already scheduled) Diet/Activity/Treatments Diet: Regular Activity: No heavy lifting Nothing in the vagina for at least 6 weeks Skin/Wound/Dressing Care Report to your healthcare provider any signs of infection, such as:: chills, fever, increased pain and unusual drainage Visit Report/Discharge Packet Instructions: DI for Cystocele and Rectocele Repair Stand Alone Forms: Surgery Discharge Print Language: Turkmen Discharge Data Primary Care Provider: Nehal Llanes Attending Provider: Sandrine Loo Quality VTE Deep Vein Thrombosis/Pulmonary Embolism Present on Admission: No
[2023-05-02 09:00] VITALS: BP 118/60; PULSE 66; RESP 17; TEMP 36.6; O2SAT 98
[2023-05-02] MEDS: DOCUSATE 100 MG CAPSULE 200 MG PO (09:00)
[2023-05-02] MEDS: MAGNESIUM HYDROXIDE 30 ML UDC PO (09:00)
--- NOTE | 2023-05-02 10:29 | PC.NURSE ---
Day note: Patient OOB ambulating, voided 500 ml (5ml PVR). Discharge instructions given to patient, discussed importance of F/U with Dr. Loo, signs of worsening symptoms, and home urinary schedule. Patient verbalized understanding of instructions. Home accompanied by spouse via private vehicle.
--- NOTE | 2023-05-02 10:54 | CM.DANOTE ---
Brief DCP Assessment Note Patient is a 77yo F here following an anterior/Posterior Repair w/SSLF *OPB* with Dr. Gifford PCP Nehal Llanes Payer Medicare and [employer] Ins NON DESTRUCTIVE TESTING SUPERVISOR reviewed EMR. Per nursing staff, patient needed to void independently and then she could d/c home. Patient left prior to being seen by this NON DESTRUCTIVE TESTING SUPERVISOR. Per chart review, lives at home with spouse Toym (p [phone]). Per RN note, patient voided indep and d/c home with spouse. No CM needs identified at this time. Plan: patient d/c home with spouse, transport in POV. CM team will continue to follow as needed. SANDY Lombardi Discharge Planning/Care Management CM Discharge Assessment Start: 05/02/23 10:45 Freq: Status: Active Protocol: Document 05/02/23 10:45 SL (Rec: 05/02/23 10:46 SL [id number]) Discharge Planning Assessment Assigned Family Court Justice SANDY Valdes DPOA/Assigned Designee Name Tomy Collins (spouse) Contact Information [phone] Advance Directives? Yes Advance Directives on File No History Provided By Medical Record Prior Living Arrangements House Household Members spouse Discharge Plan Home Transportation Arrangement Spouse Referrals Initiated None needed Whiteboard Updated in Patient Room with No name and ext. # of Family Court Justice Review Status In Process Next Review Type Continued Stay Review Pre-Anesthesia Assessment Start: 04/27/23 08:12 Freq: Status: Discharge Protocol: Document 04/27/23 08:12 CAB (Rec: 04/27/23 08:17 CAB [id number]) Pre-Anesthesia Assessment Patient Information Reviewed Via Chart Review Primary Care Provider Nehla Llanes Seen Specialist in Last 12 Months Yes Specialist Seen Clinical Social Work Aide Primary Language Belizean Preferred Language Belizean Glass Belt Sander Required No Height 165.1 cm Weight 60.328 kg Body Mass Index (BMI) 22.1 Hearing Ability Normal Visual Impairment No Limitations Visual Assist None Dentition Type Teeth, Natural Present,Teeth, Missing Barriers to Learning None Hx Anesthesia Reactions No Hx Family Anesthesia Reaction No Hx Malignant Hyperthermia No Hx Blood Transfusions No Hx Blood Transfusion Reaction No Anesthesia Review Requested No 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 No Does patient have AMIN/SOB No Hx Sleep Apnea No CPAP/BIPAP use not prescribed Currently Taking a Beta Suni No Can You Climb a Flight of Stairs Without Yes SOB Hx Chest Pain No Hx SOB No Hx Syncope or Dizziness Yes: Hx of syncope x 2 '22 Anti-Coagulant Therapy No Has a Public Aid Eligibility Assistant No Cardiac Testing No Hx Pacemaker/ICD No Pacemaker Rep Required? No Diet Type At Home Regular Dysphagia No Urinary Catheter Present No Hx Urinary Self Catheterization No Diabetes No Patient No Lactating No Hx Drug Resistant Organism No Presence of External or Internal Medical Yes: Mayur hip, lumbar/cervical Devices hardware Received a COVID vaccine? Yes Marital Status Lives With spouse Patient Discharge Plan Description Return Home Do You Have Any Spiritual Beliefs That No May Affect Your HC Choices? Do You Have Any Cultural Practices That No May Affect Your HC Choices? Emergency Contact Name Tomy () Emergency Contact Advance Directives? Yes Advance Directives on File No Power of Remote Sensing Technologist Yes Power of Remote Sensing Technologist Name Tomy () Power of Remote Sensing Technologist
== END 2023-05-02 10:34 | disposition home or self-care (01) ==
LOC: OR 07:52 → AC 11:43
PROVIDERS: Family Provider Family Medicine; PCP Family Medicine; Referring Provider Obstetrics & Gynecology; Visit Provider Obstetrics & Gynecology
PROC: (CPT 57282; principal; 2023-05-01 09:45)
DX: N81.10 Cystocele, unspecified (principal)
CPT/HCPCS: 57282; 57260; 80048; 85025; J0171; J0690; J1100; J1885; J2250; J2405; J2704; J3010

== ENCOUNTER → 2023-05-10 09:05 | Outpatient (CLI) | payer MEDICARE, OTHER, SELFPAY ==
[2023-05-01 12:16] VITALS: BMI 22.1
--- NOTE | 2023-05-10 09:07 | DI.CT.S_ITS ---
PROCEDURE: CT ABDOMEN ADRENAL PROTOCOL INDICATIONS: follow up adenoma left adrenal gland TECHNIQUE: Noncontrast 3 mm thick sections acquired from the diaphragms to the iliac crests. After the administration of intravenous contrast, 3 mm thick venous-phase and 15-minute delayed images acquired from the diaphragms to the iliac crests. For radiation dose reduction, the following was used: automated exposure control, adjustment of mA and/or kV according to patient size. COMPARISON: [facility], CT, CT ABDOMEN ADRENAL PROTOCOL, 06/29/2022, 10:04. FINDINGS: Image quality: Good Lower chest: Bibasilar scarring/atelectasis. Small fat containing Bochdalek's hernia. Mild wall thickening at the gastroesophageal junction is nonspecific. Normal heart size. Solid organs: Liver appears unremarkable. Biliary system is nondilated. Gallbladder is unremarkable. No pathologic pancreatic ductal dilation. No splenomegaly. A lipid rich left adrenal nodule is again seen measuring about 3.3 by 3.3 centimeters. This is similar in size compared to June of 2022. No discrete right adrenal nodule. No suspicious renal lesions requiring follow-up. No hydronephrosis. Vessels and lymph nodes: Atherosclerotic calcifications. Main portal vein is patent. No pathologic lymph nodes by size criteria. Bowel and peritoneum: No evidence of small bowel obstruction or pathologic ascites. Body wall: Unremarkable Bones: Degenerative changes. Postoperative spine findings. No acute or suspicious changes. 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 Consider endocrinology and laboratory follow-up to determine functional status. Other findings as above. Dictated by: Demian Veloz M.D. on 05/10/2023 at 11:45 Approved by: Demian Veloz M.D. on 05/10/2023 at 11:52
== END ==
PROVIDERS: Family Provider Family Medicine; PCP Family Medicine; Referring Provider Family Medicine; Visit Provider Family Medicine
DX: D35.00 Benign neoplasm of unspecified adrenal gland (principal); E27.9 Disorder of adrenal gland, unspecified
CPT/HCPCS: 74170; Q9967

== ENCOUNTER → 2023-08-30 10:49 | Outpatient (CLI) | payer MEDICARE, OTHER, SELFPAY ==
[2023-05-01 12:16] VITALS: BMI 22.1
--- NOTE | 2023-08-30 10:52 | DI.RAD.S_ITS ---
PROCEDURE: XR HIP W PEL IF DONE LT 2V INDICATIONS: Hx of L BONG 18 months ago; inguinal and anterior femur pain TECHNIQUE: Two views of the hip and 1 frogleg view of the right hip are provided. COMPARISON: [facility], [place], XR HIP W PEL IF DONE LT 2V, 03/24/2022, 16:56. [facility], [place], XR HIP W PEL IF DONE LT 2V, 03/24/2022, 15:33. FINDINGS: Bones: No fractures or dislocations. No suspicious bony lesions. The visualized pelvic ring appears intact. Bilateral total hip arthroplasty hardware is seen with no perihardware lucency identified. Orthopedic hardware projects over the lumbar spine, incompletely evaluated. Soft tissues: No suspicious soft tissue calcifications or masses. IMPRESSION: No acute bony abnormality. Dictated by: Arnol Rushing M.D. on 08/30/2023 at 15:47 Approved by: Arnol Rushing M.D. on 08/30/2023 at 15:48
== END ==
PROVIDERS: Family Provider Family Medicine; PCP Family Medicine; Referring Provider Physician Assistant; Visit Provider Physician Assistant
DX: M25.552 Pain in left hip (principal); Z96.643 Presence of artificial hip joint, bilateral
CPT/HCPCS: 73502

== ENCOUNTER → 2023-09-09 09:06 | Outpatient (CLI) | payer MEDICARE, OTHER, SELFPAY ==
[2023-05-01 12:16] VITALS: BMI 22.1
--- NOTE | 2023-09-09 09:07 | DI.MRI.S_ITS ---
PROCEDURE: MR HIP LT WO CON INDICATIONS: L)hip pain TECHNIQUE: Noncontrast coronal T1 spin echo and STIR through the bony pelvis. Coronal and axial T2 fast spin echo with fat saturation, sagittal T1 spin echo, and oblique axial T2 fast spin echo with fat saturation through the hip. COMPARISON: [facility], [place], XR HIP W PEL IF DONE LT 2V, 08/30/2023, 10:57. [facility], MR, MR HIP LT WO CON, 02/17/2021, 10:03. FINDINGS: Image quality: Diagnostic. Significant susceptibility artifacts are noted from prosthesis. Bones and joints: Patient is status post bilateral total hip arthroplasty with significant susceptibility artifacts. There is subtle marrow edema surrounding left femoral shaft prosthesis, without discrete cortical disruption. No acute periprosthetic fracture. No dislocation. No suspicious bony lesions. Degenerative disc disease in visualized lower lumbar spine is seen. Tendons and ligaments: Distal left gluteus medius tendinosis is seen. Low-grade partial-thickness tear involving distal left gluteus minimus tendon at its insertion on greater trochanter is also noted. The nearby proximal iliotibial band also appears intact. The iliopsoas tendon appears intact, without adjacent bursal fluid collections or evidence for impingement syndrome. Mild tendinosis involving origins of left hamstring tendons at ischial tuberosity is seen. Soft tissues: Visualized muscles demonstrate normal bulk and internal signal. Quadratus femoris muscle demonstrates no internal edema to suggest ischiofemoral impingement. The proximal sciatic neurovascular bundle appears normal adjacent to the hamstring tendons. No free pelvic fluid. Bladder wall thickness is normal. Genitourinary structures and bowel loops appear normal where visualized. IMPRESSION: 1. Prior bilateral total hip arthroplasty. Subtle marrow edema surrounding left femoral prosthesis particularly along medial aspect concerning for stress related changes versus early loosening. No fracture or dislocation. No other area of abnormal marrow signal. Degenerative disc disease in visualized lower lumbar spine. 2. Low-grade partial-thickness tear involving distal left gluteus minimus tendon at its insertion on greater trochanter. Distal left gluteus medius tendinosis. Tendinosis involving left hamstring tendon origins at ischial tuberosity. 3. No other muscle or tendon signal abnormalities are seen. No pelvic free fluid. Dictated by: Jamie De Leon M.D. on 09/11/2023 at 9:40 Approved by: Jamie De Leon M.D. on 09/11/2023 at 9:57
== END ==
LOC: MRI 09:07
PROVIDERS: Family Provider Family Medicine; PCP Family Medicine; Referring Provider Family Medicine; Visit Provider Family Medicine
DX: S76.012A Strain of muscle, fascia and tendon of left hip, initial encounter (principal); M51.36 Other intervertebral disc degeneration, lumbar region; M25.552 Pain in left hip; Z96.643 Presence of artificial hip joint, bilateral
CPT/HCPCS: 73721

== ENCOUNTER → 2023-11-23 15:33 | Outpatient (CLI) | payer MEDICARE, OTHER, SELFPAY ==
[2023-05-01 12:16] VITALS: BMI 22.1
[2023-11-23 16:26] LABS: Alanine Aminotransferase 22 IU/L (<35); Albumin 4.2 g/dL (3.5-5.0); Albumin Globulin Ratio 1.4 (1.0-2.8); Alkaline Phosphatase 85 U/L (38-126); Aspartate Aminotransferase 29 IU/L (14-36); BUN Creatinine Ratio 29.1 (6-22); Bilirubin Total 0.5 mg/dL (0.2-1.3); Blood Urea Nitrogen 23 mg/dL (7-17); Calcium 9.7 mg/dL (8.4-10.2); Carbon Dioxide 26 mmol/L (22-32); Chloride 106 mmol/L (98-107); Creatine Kinase 103 U/L (30-135); Estimated Glomerular Filt Rate > 60 mL/min (>60); Glucose 97 mg/dL (80-110); HEMOLYSIS < 15 (0-50); Potassium 4.2 mmol/L (3.4-5.1); Sodium 135 mmol/L (137-145); Total Protein 7.2 g/dL (6.3-8.2)
== END ==
PROVIDERS: Family Provider Family Medicine; PCP Family Medicine; Referring Provider Physician Assistant; Visit Provider Physician Assistant
DX: R25.2 Cramp and spasm (principal)
CPT/HCPCS: 36415; 80053; 82550

== ENCOUNTER → 2024-02-15 06:46 | Outpatient (CLI) | payer MEDICARE, OTHER, SELFPAY ==
[2023-05-01 12:16] VITALS: BMI 22.1
[2024-02-15 08:38] LABS: Cholesterol 287 mg/dL (140-199); HDL Cholesterol 77 mg/dL (40-60); LDL Cholesterol Calculated 196 mg/dL (<100); Triglycerides 69 mg/dL (35-150)
== END ==
PROVIDERS: Family Provider Family Medicine; PCP Family Medicine; Referring Provider Physician Assistant; Visit Provider Physician Assistant
DX: E78.5 Hyperlipidemia, unspecified (principal)
CPT/HCPCS: 36415; 80061

== ENCOUNTER → 2024-02-27 13:57 | Outpatient (CLI) | payer MEDICARE, OTHER, SELFPAY ==
[2023-05-01 12:16] VITALS: BMI 22.1
[2024-02-27 14:22] LABS: Add Manual Diff / Slide Review NO; Basophils Absolute Auto 0 /uL (0-100); Basophils Percent Auto 0.4 % (0-2); Eosinophils Absolute Auto 100 /uL (0-450); Eosinophils Percent Auto 2.1 % (2-4); Hematocrit 37.7 % (36-46); Hemoglobin 12.7 g/dL (12.0-16.0); Lymphocytes Absolute Auto 2000 /uL (1100-4500); Lymphocytes Percent Auto 29.8 % (25-40); Mean Corpuscular HGB Conc 33.5 % (30-36); Mean Corpuscular Volume 86.4 fL (80-100); Monocytes Absolute Auto 600 /uL (0-900); Neutrophils Absolute Auto 3900 /uL (1500-7000); Neutrophils Percent Auto 58.7 % (50-75); Platelet Count 239 X10^3/uL (150-400); Red Blood Cell Count 4.37 X10^6/uL (4.0-5.2); Red Cell Distribution Width 14.4 % (11.6-14.8); White Blood Cell Count 6.7 X10^3/uL (4.5-11.0)
[2024-02-27 14:50] LABS: High Sensitivity CRP - Cardiac 0.5 mg/L (1.0-3.0)
[2024-02-27 15:00] LABS: Free T3, Triiodothyronine Free 2.86 pg/mL (2.77-5.27); Free T4, Direct Thyroxine 1.18 ng/dL (0.78-2.19)
[2024-02-27 15:14] LABS: Thyroid Stimulating Hormone 0.995 uIU/mL (0.47-4.68)
[2024-02-27 15:18] LABS: Ferritin 49 ng/mL (11-264)
== END ==
PROVIDERS: Family Provider Family Medicine; PCP Family Medicine; Referring Provider Family Medicine; Visit Provider Family Medicine
DX: E78.5 Hyperlipidemia, unspecified (principal); R53.83 Other fatigue
CPT/HCPCS: 36415; 82728; 84439; 84443; 84481; 85025; 86140

== ENCOUNTER → 2024-04-22 10:52 | Outpatient (CLI) | payer MEDICARE, OTHER, SELFPAY ==
[2023-05-01 12:16] VITALS: BMI 22.1
--- NOTE | 2024-04-22 10:53 | DI.MG.S_ITS ---
BILATERAL DIGITAL SCREENING MAMMOGRAM 3D/2D WITH CAD: 04/22/2024 CLINICAL: Routine screening. Comparison is made to exams dated: 04/10/2023 mammogram, 03/17/2022 mammogram, and 03/12/2021 mammogram - [facility]. The breasts are heterogeneously dense, which may obscure small masses (category c / 51-75% glandular tissue). Current study was also evaluated with a Computer Aided Detection (CAD) system. There are benign post operative findings in both breasts. No significant masses, calcifications, or other findings are seen in either breast. There has been no significant interval change. IMPRESSION: BENIGN There is no mammographic evidence of malignancy. A 1 year screening mammogram is recommended. Based on the Tyrer Cuzick model (a risk assessment model) the patient's lifetime risk is 1.9% and her 10 year risk is 0.0%. According to the ACR, ACS, and NCCN guidelines, an annual breast MRI exam along with mammogram is recommended if the patient's lifetime risk is 20% or greater. This exam was interpreted at Station ID: [id number]. NOTE: For mammograms, a report in lay terms will be sent to the patient. Approximately 15% of breast malignancies will not be visualized mammographically. In the management of a palpable breast mass, a negative mammogram must not discourage biopsy of a clinically suspicious lesion. Electronically Signed By: Julio young/lenora:04/22/2024 17:49:25 letter sent: Normal Exam ACR BI-RADS Category 2: Benign
== END ==
LOC: MAMMO 10:53
PROVIDERS: Family Provider Family Medicine; PCP Family Medicine; Referring Provider Family Medicine; Visit Provider Family Medicine
DX: Z12.31 Encounter for screening mammogram for malignant neoplasm of breast (principal); R92.333 Mammographic heterogeneous density, bilateral breasts
CPT/HCPCS: 77063; 77067

== ENCOUNTER → 2024-05-30 15:38 | Outpatient (CLI) | payer MEDICARE, OTHER, SELFPAY ==
[2023-05-01 12:16] VITALS: BMI 22.1
[2024-05-30 18:05] LABS: Alanine Aminotransferase 33 IU/L (<35); Albumin Globulin Ratio 1.5 (1.0-2.8); Alkaline Phosphatase 68 U/L (38-126); Aspartate Aminotransferase 34 IU/L (14-36); BUN Creatinine Ratio 15.9 (6-22); Bilirubin Total 0.2 mg/dL (0.2-1.3); Blood Urea Nitrogen 13 mg/dL (7-17); Calcium 9.6 mg/dL (8.4-10.2); Carbon Dioxide 27 mmol/L (22-32); Chloride 101 mmol/L (98-107); Estimated Glomerular Filt Rate > 60 mL/min (>60); Gamma Glutamyl Transpeptidase 35 U/L (12-43); Globulin 2.6 g/dL (1.7-4.1); Glucose 94 mg/dL (80-110); HEMOLYSIS < 15 (0-50); Sodium 134 mmol/L (137-145); Total Protein 6.6 g/dL (6.3-8.2)
== END ==
PROVIDERS: Family Provider Family Medicine; PCP Family Medicine; Referring Provider Family Medicine; Visit Provider Family Medicine
DX: E78.5 Hyperlipidemia, unspecified (principal); R10.811 Right upper quadrant abdominal tenderness; I10 Essential (primary) hypertension
CPT/HCPCS: 36415; 80053; 82977

== ENCOUNTER → 2024-07-18 06:49 | Outpatient (CLI) | payer MEDICARE, OTHER, SELFPAY ==
[2023-05-01 12:16] VITALS: BMI 22.1
--- NOTE | 2024-07-18 06:50 | DI.US.S_ITS ---
PROCEDURE: US ABDOMEN LIMITED INDICATIONS: RIGHT UPPER QUADRANT TENDERNESS TECHNIQUE: Real-time scanning was performed of the abdominal and retroperitoneal organs, with image documentation. COMPARISON: None. FINDINGS: Liver: Liver is normal in size and mildly increased in echogenicity. Gallbladder: No gallstones. No wall thickening. No pericholecystic edema. Negative sonographic Traylor's sign. Biliary ducts: Intrahepatic bile ducts are non-dilated. Extrahepatic bile duct caliber measures 4 mm. Normal is 6-7 mm or less in diameter, or 10 mm or less post-cholecystectomy. Pancreas: Visualized portions of the pancreas are sonographically normal. Miscellaneous: No free abdominal fluid. Simple right renal cysts measure up to 9 mm. No hydronephrosis. IMPRESSION: 1. Normal gallbladder. 2. Diffusely mildly increased hepatic echogenicity is nonspecific, but most commonly encountered in the setting of hepatic steatosis. However, other causes of hepatocellular disease are not excluded. Recommend clinical correlation. Approved by: Jonas Alaniz M.D. on 07/18/2024 at 16:21
== END ==
PROVIDERS: Family Provider Family Medicine; PCP Family Medicine; Referring Provider Family Medicine; Visit Provider Family Medicine
DX: R10.811 Right upper quadrant abdominal tenderness (principal); E78.5 Hyperlipidemia, unspecified; I10 Essential (primary) hypertension
CPT/HCPCS: 76705

== ENCOUNTER → 2024-10-08 09:11 | Outpatient (CLI) | payer MEDICARE, OTHER, SELFPAY ==
[2024-10-08 07:45] VITALS: BMI 22.1
[2024-10-08 14:38] LABS: Influenza A - CEPHEID Flu A NEGATIVE (NEGATIVE); Influenza B - CEPHEID Flu B NEGATIVE (NEGATIVE); Respiratory Syncytial Virus Negative (Negative)
[2024-10-08 14:39] LABS: COVID-19 CEPHEID 4-PLEX PCR Negative (Negative)
== END ==
LOC: LAB 09:12
PROVIDERS: Family Provider Family Medicine; PCP Family Medicine; Visit Provider Family Medicine
DX: R05.9 Cough, unspecified (principal)
CPT/HCPCS: 0241U

== ENCOUNTER → 2024-10-10 11:09 | Outpatient (CLI) | payer MEDICARE, OTHER, SELFPAY ==
[2024-10-08 07:45] VITALS: BMI 22.1
--- NOTE | 2024-10-10 11:11 | DI.RAD.S_ITS ---
PROCEDURE: XR CHEST 2V INDICATIONS: PERSISTENT COUGH TECHNIQUE: 2 views of the chest were acquired. COMPARISON: [facility], , CHEST 1 VIEW, 09/13/2017, 15:08. FINDINGS: Surgical changes and devices: None. Lungs and pleura: Lungs are clear. No pleural effusions or pneumothorax. Mediastinum: Mediastinal contours are normal. Heart size is normal. Bones and chest wall: No suspicious bony abnormalities. Soft tissues appear unremarkable. IMPRESSION: No acute cardiopulmonary abnormality is seen. Dictated by: Delvis Luis M.D. on 10/10/2024 at 19:40 Approved by: Delvis Luis M.D. on 10/10/2024 at 19:40
== END ==
PROVIDERS: Family Provider Family Medicine; PCP Family Medicine; Referring Provider Family Medicine; Visit Provider Family Medicine
DX: R05.9 Cough, unspecified (principal)
CPT/HCPCS: 71046

== ENCOUNTER → 2024-11-27 09:17 | Outpatient (CLI) | payer MEDICARE, OTHER, SELFPAY ==
[2024-10-08 07:45] VITALS: BMI 22.1
[2024-11-27 10:08] LABS: Add Manual Diff / Slide Review NO; Hematocrit 39.2 % (36-46); Hemoglobin 13.0 g/dL (12.0-16.0); Hemoglobin A1C% w Est Avg Glu 5.3 % (4.0-6.0); Lymphocytes Absolute Auto 1300 /uL (1100-4500); Mean Corpuscular HGB Conc 33.2 % (30-36); Mean Corpuscular Hemoglobin 28.6 PG (26-34); Mean Corpuscular Volume 86.1 fL (80-100); Platelet Count 245 X10^3/uL (150-400)
[2024-11-27 10:28] LABS: Alanine Aminotransferase 24 IU/L (<35); Albumin 4.4 g/dL (3.5-5.0); Albumin Globulin Ratio 1.6 (1.0-2.8); Alkaline Phosphatase 77 U/L (38-126); Blood Urea Nitrogen 17 mg/dL (7-17); Calcium 10.2 mg/dL (8.4-10.2); Carbon Dioxide 28 mmol/L (22-32); Chloride 102 mmol/L (98-107); Estimated Glomerular Filt Rate 53 mL/min (>60); Globulin 2.8 g/dL (1.7-4.1); Glucose 80 mg/dL (70-99); HEMOLYSIS < 15 (0-50); Potassium 4.4 mmol/L (3.4-5.1); Sodium 137 mmol/L (137-145); Total Protein 7.2 g/dL (6.3-8.2)
[2024-11-27 11:01] LABS: TSH w/ Reflex to FT4 1.00 uIU/mL (0.47-4.68)
[2024-11-27 11:19] LABS: Vitamin B12 > 1000 pg/mL (239-931)
== END ==
PROVIDERS: Family Provider Family Medicine; PCP Family Medicine; Referring Provider Physician Assistant; Visit Provider Physician Assistant
DX: R53.82 Chronic fatigue, unspecified (principal)
CPT/HCPCS: 36415; 80053; 82607; 83036; 84443; 85025

== ENCOUNTER → 2024-12-24 07:11 | Outpatient (CLI) | payer MEDICARE, OTHER, SELFPAY ==
[2024-10-08 07:45] VITALS: BMI 22.1
[2024-12-24 09:08] LABS: Alanine Aminotransferase 20 IU/L (<35); Albumin 4.2 g/dL (3.5-5.0); Albumin Globulin Ratio 1.5 (1.0-2.8); Alkaline Phosphatase 72 U/L (38-126); Blood Urea Nitrogen 17 mg/dL (7-17); Calcium 10.2 mg/dL (8.4-10.2); Carbon Dioxide 29 mmol/L (22-32); Chloride 103 mmol/L (98-107); Estimated Glomerular Filt Rate > 60 mL/min (>60); Globulin 2.8 g/dL (1.7-4.1); Glucose 74 mg/dL (70-99); HEMOLYSIS < 15 (0-50); Potassium 4.1 mmol/L (3.4-5.1); Sodium 138 mmol/L (137-145); Total Protein 7.0 g/dL (6.3-8.2)
== END ==
PROVIDERS: Family Provider Family Medicine; PCP Family Medicine; Referring Provider Family Medicine; Visit Provider Family Medicine
DX: R19.7 Diarrhea, unspecified (principal); R25.2 Cramp and spasm
CPT/HCPCS: 36415; 80053

== ENCOUNTER → 2025-03-26 14:06 | Outpatient (CLI) | payer MEDICARE, OTHER, SELFPAY ==
[2025-03-25 17:14] VITALS: BMI 22.1
[2025-03-26 19:46] LABS: Influenza A - CEPHEID Flu A NEGATIVE (NEGATIVE); Influenza B - CEPHEID Flu B NEGATIVE (NEGATIVE)
[2025-03-26 19:49] LABS: COVID-19 CEPHEID 4-PLEX PCR Negative (Negative)
== END ==
PROVIDERS: Family Provider Family Medicine; PCP Family Medicine; Visit Provider Physician Assistant
DX: R05.1 Acute cough (principal)
CPT/HCPCS: 87637